=== PATIENT | female | born 1930 | race Caucasian/White ===

== ENCOUNTER → 2018-08-06 | Outpatient (CLI) | payer OTHER, MEDICARE ==
--- NOTE | 2018-08-06 16:24 | MR ---
MR brain without contrast HISTORY: Dizziness and memory loss Multiplanar multisequence imaging through the brain. No comparisons Periventricular, subcortical, pericallosal confluent and scattered hyperintensities are present on in version recovery T2-weighted sequences. There is no hemorrhage or hydrocephalus. Corpus callosum, pit uitary, cervical medullary junction, cerebellopontine angles are normal. The orbits show symmetric ap pearance. Paranasal sinuses are well aerated. Cortical atrophy is likely age-related. No restricted d iffusion to suggest subacute ischemia. IMPRESSION: Age-related changes of atrophy and probable chronic small vessel ischemia.
== END | disposition home or self-care (01) ==
LOC: RADMRIMAIN 15:36
PROVIDERS: ATTEND Physician Assistant
DX: G31.1 Senile degeneration of brain, not elsewhere classified (principal); Z88.5 Allergy status to narcotic agent
CPT/HCPCS: 70551

== ENCOUNTER 2019-09-24 17:18 | Observation (INO) | payer MEDICARE, OTHER ==
[2019-09-24] MEDS ORDERED: SODIUM CHLORIDE 0.9% 1,000 ML IV STA (17:51)
--- NOTE | 2019-09-24 17:58 | ED ---
General Adult HPI - General Chief complaint: Weakness Stated complaint: Weakness Time Seen by Provider: 09/24/19 17:43 Source: patient, family, RN notes reviewed Mode of arrival: wheelchair Limitations: no limitations - History of Present Illness Initial comments: Patient is a pleasant 89-year-old female presenting to the emergency Department with complaints of fatigue. Symptoms have been occurring for a couple of weeks. Majority of history is taken from daughter. Patient admits to having some hallucinations and seeing family members and talking to them were not actually there. Patient has been sleeping a lot. Patient sleeping sometimes up to 16 or 17 hours daily. Patient is easily fatigued. No pain. Family states confusion is somewhat worse than normal. Patient does have some chronic confusion and dementia. No isolated area of weakness. No fevers. No pain. - Related Data Allergies Allergy/AdvReac Type Severity Reaction Status Date / Time morphine AdvReac Unknown Verified 09/24/19 17:31 Review of Systems ROS Statement: Those systems with pertinent positive or pertinent negative responses have been documented in the HPI. ROS Other: All systems not noted in ROS Statement are negative. Constitutional: Denies: fever, chills Eyes: Denies: eye pain ENT: Denies: ear pain Respiratory: Denies: cough, dyspnea Cardiovascular: Denies: chest pain Endocrine: Reports: fatigue Gastrointestinal: Denies: abdominal pain, nausea, vomiting Genitourinary: Denies: dysuria Musculoskeletal: Denies: back pain Skin: Denies: rash Neurological: Reports: as per HPI. Denies: headache Psychiatric: Reports: as per HPI, visual hallucinations Past Medical History Past Medical History: Dementia Additional Past Medical History / Comment(s): loop recorder in chest History of Any Multi-Drug Resistant Organisms: None Reported Past Surgical History: Hysterectomy Past Psychological History: Depression Smoking Status: Never smoker Past Alcohol Use History: None Reported Past Drug Use History: None Reported General Exam Limitations: no limitations General appearance: alert, in no apparent distress Head exam: Present: normocephalic Eye exam: Present: normal appearance, PERRL, EOMI ENT exam: Present: normal oropharynx Neck exam: Present: normal inspection Respiratory exam: Present: normal lung sounds bilaterally Cardiovascular Exam: Present: regular rate, normal rhythm GI/Abdominal exam: Present: soft. Absent: tenderness Extremities exam: Present: normal inspection. Absent: pedal edema, calf tenderness Neurological exam: Present: alert, CN II-XII intact. Absent: motor sensory deficit Expanded Patient oriented to: Present: person. Absent: time (Patient admits that she was just seen on the year. Patient unclear and month) Speech: Present: fluid speech Cranial nerves: EOM's Intact: Normal Motor strength exam: RUE: 5, LUE: 5, RLE: 5, LLE: 5 Psychiatric exam: Present: normal affect, normal mood Skin exam: Present: normal color Course Vital Signs 09/24/19 09/24/19 17:24 19:55 Temperature 97.3 F L Pulse Rate 61 68 Respiratory 17 18 Rate Blood Pressure 148/86 122/83 O2 Sat by Pulse 98 98 Oximetry - Reevaluation(s) Reevaluation #1: 09/24/19 19:42 Radiology reports still pending. Department is calling radiologist EKG Findings - EKG Comments: EKG Findings:: Sinus bradycardia 57. NJ 14. QRS 72. QT 4:30. QTC 418. Normal axis. Normal QRS. No acute ST change. Medical Decision Making - Medical Decision Making Patient reevaluated and resting comfortably in bed. Patient and family updated on results. Case was discussed in detail with Dr. Rojas, covering for Dr. Lorenzo, who admits for Dr. Mcdonald, who will admit. - Lab Data Result diagrams: 09/24/19 18:24 09/24/19 18:24 Lab Results 09/24/19 09/24/19 09/24/19 Range/Units 18:24 18:24 18:24 WBC 3.9 (3.8-10.6) k/uL RBC 4.43 (3.80-5.40) m/uL Hgb 14.1 (11.4-16.0) gm/dL Hct 42.1 (34.0-46.0) % MCV 95.1 (80.0-100.0) fL MCH 31.9 (25.0-35.0) pg MCHC 33.5 (31.0-37.0) g/dL RDW 13.0 (11.5-15.5) % Plt Count 170 (150-450) k/uL Neutrophils % 57 % Lymphocytes % 29 % Monocytes % 9 % Eosinophils % 2 % Basophils % 1 % Neutrophils # 2.2 (1.3-7.7) k/uL Lymphocytes # 1.1 (1.0-4.8) k/uL Monocytes # 0.4 (0-1.0) k/uL Eosinophils # 0.1 (0-0.7) k/uL Basophils # 0.0 (0-0.2) k/uL PT 10.9 (9.0-12.0) sec INR 1.0 (<1.2) APTT 22.2 (22.0-30.0) sec Sodium 141 (137-145) mmol/L Potassium 4.2 (3.5-5.1) mmol/L Chloride 109 H (98-107) mmol/L Carbon Dioxide 26 (22-30) mmol/L Anion Gap 6 mmol/L BUN 19 H (7-17) mg/dL Creatinine 0.89 (0.52-1.04) mg/dL Est GFR (CKD-EPI)AfAm 67 (>60 ml/min/1.73 sqM) Est GFR (CKD-EPI)NonAf 58 (>60 ml/min/1.73 sqM) Glucose 104 H (74-99) mg/dL Calcium 9.5 (8.4-10.2) mg/dL Phosphorus 3.0 (2.5-4.5) mg/dL Magnesium 2.3 (1.6-2.3) mg/dL Total Bilirubin 0.7 (0.2-1.3) mg/dL AST 33 (14-36) U/L ALT 27 (9-52) U/L Alkaline Phosphatase 64 (38-126) U/L Troponin I (0.000-0.034) ng/mL Total Protein 6.9 (6.3-8.2) g/dL Albumin 4.0 (3.5-5.0) g/dL TSH 1.010 (0.465-4.680) mIU/L Free T4 1.17 (0.78-2.19) ng/dL Free T3 pg/mL 3.9 (2.8-5.3) pg/ml Urine Color Urine Appearance (Clear) Urine pH (5.0-8.0) Ur Specific Barton (1.001-1.035) Urine Protein (Negative) Urine Glucose (UA) (Negative) Urine Ketones (Negative) Urine Blood (Negative) Urine Nitrite (Negative) Urine Bilirubin (Negative) Urine Urobilinogen (<2.0) mg/dL Ur Leukocyte Esterase (Negative) Urine RBC (0-5) /hpf Urine WBC (0-5) /hpf Ur Squamous Epith Cells (0-4) /hpf Amorphous Sediment (None) /hpf Urine Mucus (None) /hpf 09/24/19 09/24/19 Range/Units 18:24 19:37 WBC (3.8-10.6) k/uL RBC (3.80-5.40) m/uL Hgb (11.4-16.0) gm/dL Hct (34.0-46.0) % MCV (80.0-100.0) fL MCH (25.0-35.0) pg MCHC (31.0-37.0) g/dL RDW (11.5-15.5) % Plt Count (150-450) k/uL Neutrophils % % Lymphocytes % % Monocytes % % Eosinophils % % Basophils % % Neutrophils # (1.3-7.7) k/uL Lymphocytes # (1.0-4.8) k/uL Monocytes # (0-1.0) k/uL Eosinophils # (0-0.7) k/uL Basophils # (0-0.2) k/uL PT (9.0-12.0) sec INR (<1.2) APTT (22.0-30.0) sec Sodium (137-145) mmol/L Potassium (3.5-5.1) mmol/L Chloride (98-107) mmol/L Carbon Dioxide (22-30) mmol/L Anion Gap mmol/L BUN (7-17) mg/dL Creatinine (0.52-1.04) mg/dL Est GFR (CKD-EPI)AfAm (>60 ml/min/1.73 sqM) Est GFR (CKD-EPI)NonAf (>60 ml/min/1.73 sqM) Glucose (74-99) mg/dL Calcium (8.4-10.2) mg/dL Phosphorus (2.5-4.5) mg/dL Magnesium (1.6-2.3) mg/dL Total Bilirubin (0.2-1.3) mg/dL AST (14-36) U/L ALT (9-52) U/L Alkaline Phosphatase (38-126) U/L Troponin I <0.012 (0.000-0.034) ng/mL Total Protein (6.3-8.2) g/dL Albumin (3.5-5.0) g/dL TSH (0.465-4.680) mIU/L Free T4 (0.78-2.19) ng/dL Free T3 pg/mL (2.8-5.3) pg/ml Urine Color Yellow Urine Appearance Cloudy H (Clear) Urine pH 8.0 (5.0-8.0) Ur Specific Barton 1.013 (1.001-1.035) Urine Protein Negative (Negative) Urine Glucose (UA) Negative (Negative) Urine Ketones Negative (Negative) Urine Blood Negative (Negative) Urine Nitrite Negative (Negative) Urine Bilirubin Negative (Negative) Urine Urobilinogen <2.0 (<2.0) mg/dL Ur Leukocyte Esterase Negative (Negative) Urine RBC 1 (0-5) /hpf Urine WBC <1 (0-5) /hpf Ur Squamous Epith Cells <1 (0-4) /hpf Amorphous Sediment Moderate H (None) /hpf Urine Mucus Rare H (None) /hpf - Radiology Data Radiology results: image reviewed ( x-ray shows no acute process) Disposition Clinical Impression: Fatigue, Hallucinations, Altered mental status Disposition: ADMITTED IP TO THIS HOSP Is patient prescribed a controlled substance at d/c from ED?: No Referrals: Lon Mcdonald MD [Primary Care Provider] - 1-2 days Decision Time: 20:35
[2019-09-24 18:33] LABS: Basophils % (A) 1 %; Eosinophils # (A) 0.1 k/uL (0-0.7); Eosinophils % (A) 2 %; HCT 42.1 % (34.0-46.0); HGB 14.1 gm/dL (11.4-16.0); Lymphocytes # (A) 1.1 k/uL (1.0-4.8); Lymphocytes % (A) 29 %; MCH 31.9 pg (25.0-35.0); MCHC 33.5 g/dL (31.0-37.0); MCV 95.1 fL (80.0-100.0); Mean Platelet Volume 7.9; Monocytes # (A) 0.4 k/uL (0-1.0); Monocytes % (A) 9 %; Neutrophils # (A) 2.2 k/uL (1.3-7.7); Neutrophils % (A) 57 %; Platelet Count 170 k/uL (150-450); RBC 4.43 m/uL (3.80-5.40); WBC 3.9 k/uL (3.8-10.6)
[2019-09-24 18:47] LABS: Calcium 9.5 mg/dL (8.4-10.2); Magnesium 2.3 mg/dL (1.6-2.3); Potassium 4.2 mmol/L (3.5-5.1); Total Bilirubin 0.7 mg/dL (0.2-1.3); Total Protein 6.9 g/dL (6.3-8.2)
[2019-09-24 18:51] LABS: Partial Thromboplastin Time 22.2 sec (22.0-30.0); Prothrombin Time 10.9 sec (9.0-12.0)
[2019-09-24 19:04] LABS: T4, Free (Free Thyroxine) 1.17 ng/dL (0.78-2.19)
[2019-09-24 19:57] LABS: Amorphous Sediment,Urine Moderate /hpf; Appearance,Urine Cloudy (Clear); Bilirubin,Urine Negative (Negative); Blood,Urine Negative (Negative); Color,Urine Yellow; Glucose,Urine (UA) Negative (Negative); Ketones,Urine Negative (Negative); Leukocyte Esterase,Urine Negative (Negative); Mucus,Urine Rare /hpf; Nitrite,Urine Negative (Negative); Protein,Urine Negative (Negative); RBC,Urine 1 /hpf (0-5); Specific Gravity,Urine 1.013 (1.001-1.035); Squamous Epithelial Cell,Urine <1 /hpf (0-4); Urobilinogen,Urine <2.0 mg/dL (<2.0); WBC,Urine <1 /hpf (0-5)
--- NOTE | 2019-09-24 20:13 | XR ---
EXAMINATION: XR chest 2V DATE AND TIME: 09/24/2019 6:38 PM CLINICAL INDICATION: PHH; Weakness and 15 TECHNIQUE: AP and lateral views COMPARISON: None FINDINGS: The lungs are clear. The pleural spaces are negative. The cardiac silhouette is borderline enlarged. The remainder of the mediastinal silhouette is unremar kable. The skeletal structures and soft tissues are negative for acute findings. IMPRESSION: NO ACUTE PROCESS.
[2019-09-24] MEDS ORDERED: NALOXONE 0.4 MG/ML 1 ML VIAL IV PRN (20:35)
[2019-09-24] MEDS ORDERED: ACETAMINOPHEN TAB 500 MG TAB PO PRN (21:36)
[2019-09-24] MEDS: SODIUM CHLORIDE 0.9% 1,000 ML IV SCH (22:40)
[2019-09-25 03:35] LABS: Appearance,Urine Clear (Clear); Bilirubin,Urine Negative (Negative); Blood,Urine Negative (Negative); Color,Urine Light Yellow; Glucose,Urine (UA) Negative (Negative); Ketones,Urine Negative (Negative); Leukocyte Esterase,Urine Moderate (Negative); Nitrite,Urine Negative (Negative); PH, Urine 7.5 (5.0-8.0); Protein,Urine Negative (Negative); RBC,Urine 2 /hpf (0-5); Specific Gravity,Urine 1.009 (1.001-1.035); Urobilinogen,Urine <2.0 mg/dL (<2.0); WBC,Urine 24 /hpf (0-5)
--- NOTE | 2019-09-25 05:47 | HP ---
HISTORY AND PHYSICAL CHIEF COMPLAINTS: Weakness and confusion. HISTORY OF PRESENT ILLNESS: This 89-year-old woman with a past medical history of multiple medical problems including dementia, history of loop recorder in the chest, history of hysterectomy, history of depression being followed by Dr. Mcdonald in the outpatient setting, was complaining of weakness and the patient also had MRA showed age-related atrophy changes as well as small-vessel ischemia also. The patient is confused and apparently interestingly the patient was taking medication. Patient sleeping 15-17 hours a day and the medications stopped. Still the patient is confused. Patient is still sleepy during the daytime according to the daughter and the patient taken to [facility] and was admitted for further evaluation and treatment. The patient also had some right leg wound also, minimal some tenderness. There is no history of fever, rigors, chills at this time. PAST MEDICAL HISTORY: History of dementia, loop recorder, history of hysterectomy, history of depression. MEDICATIONS: Home medications are none. ALLERGIES: MORPHINE. FAMILY HISTORY: No history of heart disease or strokes in the family. SOCIAL HISTORY: No history of smoking. No history of alcohol. REVIEW OF SYSTEMS: ENT diminished vision. Diminished hearing. CARDIOVASCULAR: No angina. RESPIRATION: No cough. No hemoptysis. GI no nausea or vomiting. no dysuria. Nervous system: No numbness, otherwise as mentioned earlier. ALLERGIES/IMMUNOLOGY: No asthma or hayfever. MUSCULOSKELETAL as mentioned earlier. HEMATOLOGY/ONCOLOGY: No history of anemia. ENDOCRINE: No history of diabetes or hypothyroidism. CONSTITUTIONAL: As mentioned earlier. DERMATOLOGY mentioned earlier. RHEUMATOLOGY negative. PSYCHIATRY as mentioned earlier. PHYSICAL EXAMINATION: Alert and oriented x3. Pulse 64. Blood pressure 133/95, respiration 18, temperature 97.2, pulse ox 97% on room air. HEENT: Conjunctivae normal. Oral mucosa moist. NECK is no jugular venous distention. No carotid bruit. No lymph node enlargement. Cardiovascular system: S1, S2 muffled. No S3, no S4. RESPIRATORY: Breath sounds diminished in the bases. No rhonchi. No crackles. ABDOMEN: Soft, nontender. No mass palpable. LEGS: Right lower leg erythema and cellulitis and denuded areas also present. NERVOUS SYSTEM: Higher functions as mentioned earlier. Moves all four limbs. No focal motor or sensory deficits. Lymphatics: No lymph nodes palpable in the neck, axillae or groin. SKIN: No ulcers, no rashes and no bleeding. JOINTS: No active deforming arthropathy. LABS: At this time: WBC is within normal limits. CBC noted. Otherwise BUN is 19. Glucose 104. ASSESSMENT: 1. Change in mental status, acute metabolic encephalopathy, possibly medication induced, sleeping medication sedatives induced. 2. Possible cellulitis of the right lower leg. 3. Dementia. 4. Chronic small-vessel ischemic changes. 5. Loop recorder in the chest. 6. History of hysterectomy. 7. Depression. 8. Gait dysfunction. 9. FULL CODE. RECOMMENDATIONS AND DISCUSSION: In this 89-year-old woman who presented with multiple medical issues, we will monitor the patient closely, continue the current medications, management and symptomatic treatment. We will initiate empiric antibiotics for the cellulitis. Otherwise, we will hold off all the sedatives and the anxiety medication. PT, OT evaluation. Orthostatic vitals. Neurology consultation. Neurovascular workup. Prognosis guarded because of multiple complex medical issues. Further recommendations to follow. Discussed with family and the daughter at the bedside. Copy of dictation being forwarded to Dr. Mcdonald who is the primary physician. MMODL / MATTN: [id number] /
[2019-09-25 07:57] LABS: Basophils % (A) 1 %; Eosinophils # (A) 0.1 k/uL (0-0.7); Eosinophils % (A) 2 %; HCT 38.8 % (34.0-46.0); HGB 12.9 gm/dL (11.4-16.0); Lymphocytes # (A) 1.2 k/uL (1.0-4.8); Lymphocytes % (A) 28 %; MCH 31.7 pg (25.0-35.0); MCHC 33.2 g/dL (31.0-37.0); MCV 95.4 fL (80.0-100.0); Mean Platelet Volume 8.1; Monocytes # (A) 0.4 k/uL (0-1.0); Monocytes % (A) 8 %; Neutrophils # (A) 2.5 k/uL (1.3-7.7); Neutrophils % (A) 59 %; Platelet Count 157 k/uL (150-450); RBC 4.06 m/uL (3.80-5.40); RDW 12.9 % (11.5-15.5); WBC 4.3 k/uL (3.8-10.6)
[2019-09-25 07:58] LABS: Calcium 8.9 mg/dL (8.4-10.2); Potassium 3.9 mmol/L (3.5-5.1)
--- NOTE | 2019-09-25 08:57 | US ---
EXAMINATION TYPE: US carotid duplex BILAT DATE OF EXAM: 09/25/2019 COMPARISON: NONE CLINICAL HISTORY: stroke. No hx TIA. No HTN. EXAM MEASUREMENTS: RIGHT: Peak Systolic Velocity (PSV) cm/sec ----- Right CCA: 61.0 ----- Right ICA: 52.3 ----- Right ECA: 80.1 ICA/CCA ratio: 0.9 RIGHT: End Diastole cm/sec ----- Right CCA: 10.4 ----- Right ICA: 13.9 ----- Right ECA: 7.6 LEFT: Peak Systolic Velocity (PSV) cm/sec ----- Left CCA: 64.7 ----- Left ICA: 94.3 ----- Left ECA: 61.4 ICA/CCA ratio: 1.5 LEFT: End Diastole cm/sec ----- Left CCA: 7.6 ----- Left ICA: 21.9 ----- Left ECA: 8.7 VERTEBRALS (direction of flow): Right Vertebral: Antegrade Left Vertebral: Antegrade Rhythm: Normal Bilateral wall thickening. Plaque visualized in bilateral bulbs. No elevated velocities. No signif icant stenosis. IMPRESSION: Moderate degree of grayscale atheromatous plaquing in the carotid bulbs bilaterally with no sonographically evident hemodynamically significant stenosis within either visualized carotid art erial system. Criteria for Assigning % of Stenosis / Diameter reduction (Estimation based on the indirect measurements of the internal carotid artery velocities (ICA PSV). 1. Normal (no stenosis)=ICA PSV < 125 cm/s: ratio < 2.0: ICA EDV<40 cm/s. 2. Less than 50% stenosis=ICA PSV < 125 cm/s: ratio < 2.0: ICA EDV<40 cm/s. 3. 50 to 69% stenosis=ICA PSV of 125 to 230 cm/s: ration 2.0 ? 4.0: ICA EDV 40-100 cm/s. 4. Greater than 70% stenosis to near occlusion= ICA PSV > 230 cm/s: ratio > 4.0: ICA EDV > 100 cm/s. 5. Near occlusion= ICA PSV velocities may be low or undetectable: variable ratio and ICA EDV. 6. Total occlusion=unable to detect flow.
[2019-09-25] MEDS: HEPARIN SODIUM,PORCINE 5,000 UNIT/ML 1 ML VIAL SQ SCH ×2 (09:36→22:11)
[2019-09-25] MEDS: PANTOPRAZOLE 40 MG TABLET PO SCH (09:36)
--- NOTE | 2019-09-25 11:58 | ECHOF ---
Referral Reason:Stroke MEASUREMENTS -------- HEIGHT: 157.5 cm WEIGHT: 55.8 kg BP: 164/73 RVIDd: 2.8 cm (< 3.3) IVSd: 1.2 cm (0.6 - 1.1) LVIDd: 3.7 cm (3.9 - 5.3) LVPWd: 1.3 cm (0.6 - 1.1) IVSs: 1.6 cm LVIDs: 2.5 cm LVPWs: 1.5 cm LA Diam: 4.5 cm (2.7 - 3.8) LAESV Index (A-L): 34.71 ml/m Ao Diam: 2.4 cm (2.0 - 3.7) AV Cusp: 1.5 cm (1.5 - 2.6) LA Diam: 3.4 cm (2.7 - 3.8) MV EXCURSION: 15.965 mm (> 18.000) MV EF SLOPE: 66 mm/s (70 - 150) EPSS: 0.2 cm MV E Malik: 0.49 m/s MV DecT: 163 ms MV A Malik: 0.76 m/s MV E/A Ratio: 0.64 RAP: 5.00 mmHg RVSP: 13.03 mmHg FINDINGS -------- Sinus rhythm. This was a technically good study. The left ventricular size is normal. There is mild concentric left ventricular hypertrophy. Overa ll left ventricular systolic function is normal with, an EF between 55 - 60 %. The right ventricle is normal in size. The left atrium is moderately dilated. LA is midly dilated 29-33ml/m2. The right atrial size is normal. There is mild aortic valve sclerosis. There is no evidence of aortic regurgitation. Mild mitral annular calcification present. Mild mitral regurgitation is present. Trace tricuspid regurgitation present. Right ventricular systolic pressure is normal at < 35 mmHg. There is no evidence of pulmonary hypertension. There is no pulmonic regurgitation present. The aortic root size is normal. There is no pericardial effusion. CONCLUSIONS -------- 1. Sinus rhythm. 2. This was a technically good study. 3. The left ventricular size is normal. 4. There is mild concentric left ventricular hypertrophy. 5. Overall left ventricular systolic function is normal with, an EF between 55 - 60 %. 6. The right ventricle is normal in size. 7. The left atrium is moderately dilated. 8. LA is midly dilated 29-33ml/m2. 9. The right atrial size is normal. 10. There is mild aortic valve sclerosis. 11. Mild mitral annular calcification present. 12. Mild mitral regurgitation is present. 13. Trace tricuspid regurgitation present. 14. Right ventricular systolic pressure is normal at < 35 mmHg. 15. There is no evidence of pulmonary hypertension. 16. There is no pulmonic regurgitation present. 17. The aortic root size is normal. 18. There is no pericardial effusion. LOAF COUNTER: Katiuska Mike RDCS
--- NOTE | 2019-09-25 14:37 | P.CN ---
Psychiatric Consult - . Consult date: 09/25/19 Consult:: 09/25/19 14:25 IDENTIFYING DATA: This patient is a 89-year-old female who currently lives with her granddaughter and apartment is and has 2 daughters and 2 grandchildren. HISTORY OF PRESENT ILLNESS: The patient was brought in yesterday to the ER due to concerns of fatigue for the past week and also complaints of possible hallucinations. Psychiatry is consulted for altered mental status and hallucinations. Patient has a history of dementia and chronic confusion. The patient was agreeable to be seen today by report writer at the bedside and appeared to have a bright affect and was appropriate and cooperative during the interview. Patient spoke about being able to mainly take care of herself at home and has sufficient help from her granddaughter who is always at her house. She states that she is a very social person and likes to interact with other people. She claims that she does not know why she is in the hospital and asked several times why she is being evaluated. She claims that she ran out of medication and that her pharmacy "close down" and her primary care doctor send her to the ER. She states that she is at times sleeping well at night and denies any depression at this time. She states that she does not have any anxiety. When asked about the incident and about her hallucinations she states that she was at her house and she was doing something in the kitchen and had a feeling that her daughter was in the other room and called out for her and she states that "it turned out she wasn't there". Patient claims that she did not actually see her daughter but had a "feeling she was there". She states that nothing triggered this that she can recall. She denies talking to any voices or seeing any people or other visual hallucinations. Patient was confused as to who the president was the current time and was alert and oriented 2 and did not know today's date, claiming that she thought it was February 2019. At this time patient denies any suicidal or homical ideations, intent or plan. Patient denies any auditory, visual hallucinations and denies any paranoia or delusions. PAST PSYCHIATRIC HISTORY: Patient has a history of dementia and chronic confusion. She has never been admitted to a psychiatric hospital and denies any outpatient psychiatric follow-up. She denies any history of suicide attempts in the past. PAST MEDICAL HISTORY: Dementia. ALLERGIES: as per EMR. CHEMICAL DEPENDENCY HISTORY: Denies any recreational drug use denies any nicotine or alcohol use.. FAMILY PSYCHIATRIC/SUBSTANCE USE HISTORY: denies SOCIAL HISTORY: She states that she was born and raised in [place] and was in [place] and [place]. She claims that she had to move back to [place] after her . 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 She has 2 daughters and 2 granddaughters and is currently and lives alone in apartment with her granddaughter frequently being there.. MENTAL STATUS EXAM: General Appearance: Patient appears to be stated age is thin, alert, pleasant, and cooperative. Fair hygiene and grooming. Behavior: Patient is calmly lying in bed without any agitated behavior. Speech: Patient's speech is fluent and nonpressured. Mood/Affect: Patient reports their mood is "good", affect is congruent fair range. Suicidality/Homicidality: Patient denies having any suicidal or homicidal ideation intent or plan. Perceptions: Patient denies any auditory or visual hallucinations. Though content/process: There is no evidence of any delusional thought content and thought process is linear and goal-directed. Tangential at times. Memory and concentration: AOX2, patient believed it was February 2019. Patient did not know who the current president is. Patient has good attention span and Can spell "WORLD" backwards. He can identify objects. Has one out of 3 memory recall after 5 minutes. Judgment and insight: Chronically limited. IMPRESSIONS: Dementia without behavioral disturbance PLAN: -At this time patient does NOT meet criteria for inpatient psychiatric admission. -Unclear etiology for supposed "hallucinations" at home. Patient does appear to be chronically confused and has a baseline of dementia. At this time is not experiencing any acute visual or auditory hallucinations which is not impairing her life at this time. Can continue to monitor. -Delirium precautions recommended with patient including - avoiding use of narcotics and RAMP ATTENDANT sedatives, limit anticholinergic medications when possible, frequent re-orientation, minimize use of restraints, open window shades during the day and close them at night -Would recommend the following medication changes/additions: We'll switch Remeron to melatonin 2 mg daily at bedtime for sleep. Can continue on home dose of donepezil 10 mg nightly for memory. -Urine analysis negative, electrolytes and CBC appear WNL. -Psychiatry will sign off at this point
[2019-09-25] MEDS: FOLIC ACID 1 MG TAB PO SCH (14:44)
[2019-09-25] MEDS: THIAMINE 100 MG TAB PO SCH (14:45)
[2019-09-25] MEDS: MULTIVITAMINS, THERA 1 EACH TAB PO SCH (14:45)
--- NOTE | 2019-09-25 16:05 | P.PN ---
Subjective Progress Note Date: 09/25/19 Principal diagnosis: This is an 89-year-old female that was recently admitted for weakness, confusion, and hallucinations and was being closely monitored. Today patient is much more alert and awake and responding appropriately. Granddaughter Alesha, of whom has power of state attorney states that she is much better today. Patient denies hearing voices or seeing people that are not present at this time. Per Alesha, patient was told that she does have dementia and they weren't sure if she was advancing. Patient is currently on IV antibiotics in the form of Rocephin and will continue at this time. Patient denies any chest pain, shortness of breath, or palpitations. Patient has been afebrile. Patient denies any nausea or vomiting and has been tolerating diet. Patient has been working with PT/OT as well. Patient was seen by psychiatry today and recommending using melatonin as opposed to Remeron as needed for sleep. Patient underwent an echo showing overall left ventricular systolic function is normal with an EF between 55 and 60%. Carotid Doppler was done showing a moderate degree of atheromatous plaquing in the carotid bulbs bilaterally with no evident significant stenosis in either carotid arteries. Objective - Vital Signs Vital signs: Vital Signs Temp 97.8 F 09/25/19 13:00 Pulse 63 09/25/19 13:00 Resp 16 09/25/19 13:00 BP 149/70 09/25/19 13:00 Pulse Ox 96 09/25/19 13:00 Intake & Output 09/24/19 09/25/19 09/25/19 18:59 06:59 18:59 Intake Total 210 50 Balance 210 50 Weight 56.699 kg 55.934 kg Intake: Intake, IV Titration 210 50 Amount Sodium Chloride 0.9% 1, 160 000 ml @ 20 mls/hr IV . Q24H [facility] Rx#:[id number] cefTRIAXone 1 gm In 50 50 Sodium Chloride 0.9% 50 ml @ 100 mls/hr IVPB Q24HR [facility] Rx#:[id number] Other: Voiding Method Toilet Toilet - Exam Gen: This is a 89-year-old female sitting up in bed in no acute distress. Temp is 97.8F, pulse is 63, respirations are 16, blood pressure is 149/70, oxygen saturation is 96% on room air. HEENT: Head is atraumatic, normocephalic. Pupils equal, round. Sclerae is anicteric. NECK: Supple. No JVD. No lymphadenopathy. No thyromegaly. LUNGS: Respiratory system shows diminished breath sounds at the bases with no rhonchi, crackles, or wheezes noted. No intercostal retractions. HEART: S1, S2 are muffled. ABDOMEN: Soft. Bowel sounds are present. No masses. No tenderness. EXTREMITIES: No pedal edema. No calf tenderness. NEUROLOGICAL: Patient is awake, alert and oriented x3. Cranial nerves 2 through 12 are grossly intact. SKIN: Right lower leg display some erythema and cellulitis with denuded areas - Labs CBC & Chem 7: 09/25/19 07:04 09/25/19 07:04 Labs: Abnormal Lab Results - Last 24 Hours (Table) 09/24/19 09/24/19 09/25/19 Range/Units 18:24 19:37 03:30 Chloride 109 H (98-107) mmol/L BUN 19 H (7-17) mg/dL Glucose 104 H (74-99) mg/dL Urine Appearance Cloudy H (Clear) Ur Leukocyte Esterase Moderate H (Negative) Urine WBC 24 H (0-5) /hpf Amorphous Sediment Moderate H (None) /hpf Urine Mucus Rare H (None) /hpf 09/25/19 Range/Units 07:04 Chloride 112 H (98-107) mmol/L BUN (7-17) mg/dL Glucose (74-99) mg/dL Urine Appearance (Clear) Ur Leukocyte Esterase (Negative) Urine WBC (0-5) /hpf Amorphous Sediment (None) /hpf Urine Mucus (None) /hpf Assessment and Plan Assessment: Change in mental status, acute metabolic encephalopathy, possible medication induced, sleeping medication sedatives induced Possible cellulitis of the right lower leg Dementia Chronic small vessel ischemic changes Group recorder in the chest History of hysterectomy Depression Gait dysfunction Full code Recommendations and discussion: Recommend continue current medications, management, and symptomatic treatment. Will hold on [employer] and narcotic use. We'll discontinue Remeron and may use melatonin as needed for sleep. Psychiatry has seen the patient and is signed off at this point. Patient will continue on IV antibiotics in the form of Rocephin at this time. Due to multiple complex medical issues prognosis is guarded. Further recommendations to follow. Discussed at length about the discharge plans with Alesha the family member and the plan is to return to the long term facility that she resides at. Possible discharge in 24-48 hours.
[2019-09-25 20:45] VITALS: RESP 18
[2019-09-25] MEDS ORDERED: DONEPEZIL 10 MG TAB PO SCH (21:00)
[2019-09-25] MEDS ORDERED: MELATONIN 1 MG TAB PO SCH (21:00)
[2019-09-25] MEDS ORDERED: MIRTAZAPINE 15 MG TAB PO SCH (21:00)
[2019-09-25] MEDS: SODIUM CHLORIDE 0.9% 1,000 ML IV SCH (22:10)
[2019-09-26 04:33] VITALS: PULSE 66
[2019-09-26 07:48] LABS: Basophils % (A) 1 %; Eosinophils % (A) 1 %; HCT 41.3 % (34.0-46.0); HGB 13.7 gm/dL (11.4-16.0); Lymphocytes # (A) 1.1 k/uL (1.0-4.8); Lymphocytes % (A) 30 %; MCH 31.8 pg (25.0-35.0); MCV 96.1 fL (80.0-100.0); Mean Platelet Volume 7.6; Monocytes # (A) 0.3 k/uL (0-1.0); Monocytes % (A) 9 %; Neutrophils # (A) 2.1 k/uL (1.3-7.7); Neutrophils % (A) 56 %; Platelet Count 168 k/uL (150-450); WBC 3.8 k/uL (3.8-10.6)
[2019-09-26 08:03] LABS: Calcium 9.3 mg/dL (8.4-10.2); Potassium 3.7 mmol/L (3.5-5.1)
[2019-09-26] MEDS: HEPARIN SODIUM,PORCINE 5,000 UNIT/ML 1 ML VIAL SQ SCH (09:17)
[2019-09-26] MEDS: PANTOPRAZOLE 40 MG TABLET PO SCH (09:17)
[2019-09-26 12:45] VITALS: BP 159/82; TEMP 97.5
--- NOTE | 2019-09-26 13:02 | P.CNNES ---
History of Present Illness Consult date: 09/25/19 Reason for Consult: AMS, hallucinations History of Present Illness: HISTORY OF PRESENT ILLNESS: Thank you for allowing me to evaluate Ms. Naina Traore. Ms. Traore is an 89 year-old woman with PMhx of dementia presenting with fatigue, consulting neurology for altered mental status and hallucinations. Patient's granddaughter, Alesha, at bedside for corroborating information. Alesha states that she had taken the patient to her PCP, and during that visit, patient reported that she sometimes found herself talking to her daughter or grandchildren soon to realize that they are not there. As soon as the PCP ceferino rd this story, he recommended granddaugther to take patient to the emergency room. Patient had thought that she went to a pharmacy not her PCP. Patient was describing an incident when she was in a room and talking to her daughter, and while walking out of the room, she realized that her daughter was not at her house. Alesha states patient was diagnosed with early-onset dementia last year. Otherwise, patient has been pretty healthy, no recent sickness, fever, nausea, vomiting, double/blurry vision, headache, weakness, numbness, tingling, chest pain, SOB, diarrhea/constipation or urinary symptoms. PAST MEDICAL HISTORY: Dementia PAST SURGICAL HISTORY: Hysterectomy HOME MEDICATIONS: KCl, mirabegron, vitamin D, mirtazapine, metoprolol, aspirin, donepezil, atorvastatin ALLERGIES: Morphine SOCIAL HISTORY: Never smoker REVIEW OF SYSTEMS: The 14 systems are reviewed and no additional points are identified compared to the review of systems documented history and physical PHYSICAL EXAMINATION: VITAL SIGNS: T 97 HR 67 RR 16 BP 164/73 O2 sat 96% on RA GEN.: NAD, pleasant and cooperative HEENT: NCAT, sclera without icterus NECK: Supple SKIN AND EXTREMITIES: Warm to touch, no edema NEURO: MENTAL STATUS: Patient alert and oriented to self, place, time. Able to name the current president. Speech fluent, able to name and repeat, following all commands readily. No right and left disorientation, neglect. Patient with difficulty spelling WORLD backwards but able to do serial 7's albeit with some time CRANIAL NERVES II THROUGH XII: II: Pupils are equal and reactive to light symmetrically. No afferent pupillary defect. Visual dowell are intact. III, IV, : No ptosis. Extraocular movements full. No nystagmus. V: Facial sensation intact from V1-3. VII. No clear facial asymmetry. VIII: Hearing intact to finger rub bilaterally. IX, X: Symmetric palate elevation. XI: Shoulder shrug intact. XII: Tongue midline without fasciculation or atrophy. MOTOR: Normal bulk/tone. No pronator drift or tremor. Strength is 5/5 throughout all 4 extremities. SENSORY: Intact to light touch in all 4 extremities. Romberg is negative. REFLEXES: 2+ throughout. Toes are downgoing. COORDINATION: Finger to nose intact. No dysmetria. GAIT: Narrow-based and stable. Able to toe/heel/tandem walk DIAGNOSTIC TESTING: LABORATORY: WBC 4.3 hemoglobin 12.9 platelet 157 INR 1.0 sodium 141 potassium 3.9 chloride 112 bicarb 23 BUN 15 creatinine 0.81 glucose 79 AST 33 ALT 27 alk phos 64 tropon in <0.012 TSH 1.010 urinalysis moderate leukesterase WBC 24 IMAGING: Carotid Doppler bilateral 09/25/2019: Moderate degree of grief scale atheromatous plaquing in the carotid bulbs bilaterally with no sonographically evident hemodynamically significant stenosis within either visualized carotid artery assistance. MRI brain without contrast 08/06/2018: Age-related changes of atrophy and probable chronic small vessel ischemia. ASSESSMENT/RECOMMENDATIONS: 89 year-old woman with PMhx of dementia, HTN presenting with fatigue, consulting neurology for altered mental status and hallucinations. Patient is alert and oriented x 4, with no focal neuro deficits. Patient with early-onset dementia, which does not appear to have progressed. Patient is not actually having visual or auditory hallucinations but thinking that her children are at her place. Some of these symptoms could very well be present in dementia patients, but patient also found with a dirty urinalysis, which could cause delirium in elderly patients. Patient needs to follow up with an outpatient neurologist for management of early-onset dementia. Patient does not need additional inpatient work-up from neurological perspective. Neurology will sign off at this time. Neurology is not available over the weekend in-house. However, feel free to [employer] message me over the weekend if you have any questions or concerns Past Medical History Past Medical History: Dementia Additional Past Medical History / Comment(s): loop recorder in chest History of Any Multi-Drug Resistant Organisms: None Reported Past Surgical History: Hysterectomy Past Anesthesia/Blood Transfusion Reactions: No Reported Reaction Past Psychological History: Depression Smoking Status: Never smoker Past Alcohol Use History: None Reported Past Drug Use History: None Reported - Past Family History Daughter(s) History Unknown: Yes Medications and Allergies Home Medications Medication Instructions Recorded Confirmed Type Aspirin EC [Ecotrin Low Dose] 81 mg PO DAILY 09/25/19 09/25/19 History Atorvastatin [Lipitor] 40 mg PO DAILY 09/25/19 09/25/19 History Cholecalciferol [Vitamin D3 (25 1,000 unit PO DAILY 09/25/19 09/25/19 History Mcg = 1000 Iu)] Donepezil HCl [Aricept] 10 mg PO DAILY 09/25/19 09/25/19 History Lactobacillus Acidophilus 1 tab PO DAILY 09/25/19 09/25/19 History [Acidophilus] Metoprolol Tartrate [Lopressor] 12.5 mg PO BID 09/25/19 09/25/19 History Mirabegron [Myrbetriq] 25 mg PO DAILY 09/25/19 09/25/19 History Mirtazapine [Remeron] 15 mg PO DAILY 09/25/19 09/25/19 History Potassium Chloride ER [K-Dur 10] 10 meq PO DAILY 09/25/19 09/25/19 History Cefuroxime Axetil [Ceftin] 500 mg PO BID 3 Days #6 tab 09/26/19 Rx Folic Acid 1 mg PO DAILY #30 tablet 09/26/19 Rx Multivitamins, Thera [Multivitamin] 1 tab PO DAILY #30 tablet 09/26/19 Rx Thiamine [Vitamin B-1] 100 mg PO DAILY #30 tablet 09/26/19 Rx Allergies Allergy/AdvReac Type Severity Reaction Status Date / Time morphine AdvReac Unknown Verified 09/24/19 21:26 Physical Examination - Vital Signs Vital Signs: Vital Signs Temp Pulse Pulse Resp BP BP Pulse Ox 09/25/19 05:00 97 F L 67 16 164/73 96 09/24/19 22:09 97.8 F 69 18 160/94 96 09/24/19 21:28 64 18 136/95 97 09/24/19 19:55 68 18 122/83 98 09/24/19 17:24 97.3 F L 61 17 148/86 98 Intake and Output 09/24/19 09/25/19 09/25/19 22:59 06:59 14:59 Intake Total 50 160 Balance 50 160 Intake: Intake, IV Titration 50 160 Amount Sodium Chloride 0.9% 1, 160 000 ml @ 20 mls/hr IV . Q24H [facility] Rx#:[id number] cefTRIAXone 1 gm In 50 Sodium Chloride 0.9% 50 ml @ 100 mls/hr IVPB Q24HR [facility] Rx#:[id number] Other: Voiding Method Toilet Weight 55.934 kg Results - Laboratory Findings CBC and BMP: 09/26/19 06:59 09/26/19 06:59 Abnormal Lab Findings: Abnormal Labs 09/24/19 09/24/19 09/25/19 18:24 19:37 03:30 Chloride 109 H BUN 19 H Glucose 104 H Urine Appearance Cloudy H Ur Leukocyte Esterase Moderate H Urine WBC 24 H Amorphous Sediment Moderate H Urine Mucus Rare H 09/25/19 07:04 Chloride 112 H BUN Glucose Urine Appearance Ur Leukocyte Esterase Urine WBC Amorphous Sediment Urine Mucus
[2019-09-26] MEDS: FOLIC ACID 1 MG TAB PO SCH (13:21)
[2019-09-26] MEDS: THIAMINE 100 MG TAB PO SCH (13:21)
[2019-09-26] MEDS: MULTIVITAMINS, THERA 1 EACH TAB PO SCH (13:21)
--- NOTE | 2019-09-26 22:44 | DS ---
DISCHARGE SUMMARY DATE OF SERVICE: 09/26/2019 FINAL DIAGNOSES: 1. Change in mental status, acute metabolic encephalopathy possibly medication induced, improved. 2. Possible acute cellulitis of the right lower leg, improved. 3. Dementia. 4. Chronic small-vessel ischemic changes. 5. History of hysterectomy. 6. Depression. 7. Gait dysfunction. 8. FULL CODE. DISCHARGE DISPOSITION: The patient will be discharged in stable condition with guarded prognosis. HISTORY OF PRESENT ILLNESS: This 89-year-old woman with a past medical history of multiple medical problems including change in mental status and cellulitis of the right leg. Patient empirically given antibiotics. Patient improved significantly. Psychiatry saw the patient. A 2D echo with Doppler was also done. The psych recommended continue the current medications. Neurology also saw the patient. A 2D echo showed EF 55-60 percent. On exam, vitals are stable. Cardiovascular: S1, S2. Abdomen soft. Nervous system: No focal deficits. DISCHARGE ADVICE AND MEDICATIONS: 1. Diet is cardiac diet. 2. Activity limited until followup. 3. Follow up with Dr. Mcdonald in 1-2 days. 4. Follow up with Neurology as recommended. DISCHARGE MEDICATIONS: 1. Lactobacillus acidophilus 1 p.o. daily. 2. Aricept 10 mg daily. 3. Ecotrin 81 mg daily. 4. K-Dur 10 mEq p.o. daily. 5. Lipitor 40 mg daily. 6. Lopressor 12.5 mg p.o. b.i.d. 7. Myrbetriq 25 mg p.o. daily. 8. Remeron 50 mg p.o. daily. 9. Vitamin D3 1000 daily. 10.Ceftin 500 mg daily for 3 days. 11.Folic acid 1 mg p.o. daily. 12.Multivitamins 1 p.o. daily. 13.Vitamin B1 thiamine 100 mg p.o. daily. MMODL / IJN: [id number] /
== END 2019-09-26 14:00 | disposition home or self-care (01) ==
LOC: EC 17:18 → 3NMEDONC 20:36
PROVIDERS: ADMIT Hospitalist; ATTEND Hospitalist
DX: F03.90 Unspecified dementia, unspecified severity, without behavioral disturbance, psychotic disturbance, mood disturbance, and anxiety (principal); F32.9 Major depressive disorder, single episode, unspecified; R44.3 Hallucinations, unspecified; G93.41 Metabolic encephalopathy; I73.9 Peripheral vascular disease, unspecified; R26.9 Unspecified abnormalities of gait and mobility; Z90.710 Acquired absence of both cervix and uterus; Z79.82 Long term (current) use of aspirin; Z79.899 Other long term (current) drug therapy; Z88.5 Allergy status to narcotic agent
CPT/HCPCS: 96361 ×3; 96365; 96372 ×2; 99285; 36415; 93005; 93306; 97530; 97162; 97166; 84439; 84481; 80053; 80048 ×2; 83735; 84100; 84443; 84484; 85025 ×3; 85610; 85730; 81001 ×2; 71046; 93880; G0378 ×3; J1644 ×2; J0696 ×3

== ENCOUNTER 2019-10-02 20:18 | Emergency (ER) | payer MEDICARE ==
[2019-10-02 20:29] VITALS: BP 154/71; PULSE 57; RESP 16; TEMP 97.7
--- NOTE | 2019-10-02 21:02 | ED ---
General Adult HPI - General Chief complaint: Skin/Abscess/Foreign Body Stated complaint: Abscess Time Seen by Provider: 10/02/19 20:32 Source: patient, RN notes reviewed, old records reviewed Mode of arrival: ambulatory Limitations: no limitations - History of Present Illness Initial comments: 89-year-old female patient presents to ED for chief complaint evaluation of sore and gluteus region. Patient was reportedly admitted from 09/24 until 09/26 for fatigue mental status change, urinary tract infection. Patient was discharged with Ceftin which she completed. Patient presents to ED today that she has a pressure ulcer on her left gluteus region. Denies any other complaints. Alert and oriented. Denies any pain. Systemic: Pt denies fatigue, fever/chills, rash. Pt denies weakness, night sweats, weight loss. Neuro: Pt denies headache, visual disturbances, syncope or pre-syncope. HEENT: Pt denies ocular discharge or irritation, otalgia, rhinorrhea, pharyngitis or notable lymphadenopathy. Cardiopulmonary: Pt denies chest pain, SOB, heart palpitations, dyspnea on exertion. Abdominal/GI: Pt denies abdominal pain, n/v/d. : Pt denies dysuria, burning w/ urination, frequency/urgency. Denies new onset urinary or bowel incontinence. MSK: Pt denies myalgia, loss of strength or function in extremities. Neuro: Pt denies new onset weakness, paresthesias. - Related Data Home Medications Medication Instructions Recorded Confirmed Aspirin EC [Ecotrin Low Dose] 81 mg PO DAILY 09/25/19 09/25/19 Atorvastatin [Lipitor] 40 mg PO DAILY 09/25/19 09/25/19 Cholecalciferol [Vitamin D3 (25 1,000 unit PO DAILY 09/25/19 09/25/19 Mcg = 1000 Iu)] Donepezil HCl [Aricept] 10 mg PO DAILY 09/25/19 09/25/19 Lactobacillus Acidophilus 1 tab PO DAILY 09/25/19 09/25/19 [Acidophilus] Metoprolol Tartrate [Lopressor] 12.5 mg PO BID 09/25/19 09/25/19 Mirabegron [Myrbetriq] 25 mg PO DAILY 09/25/19 09/25/19 Mirtazapine [Remeron] 15 mg PO DAILY 09/25/19 09/25/19 Potassium Chloride ER [K-Dur 10] 10 meq PO DAILY 09/25/19 09/25/19 Previous Rx's Medication Instructions Recorded Cefuroxime Axetil [Ceftin] 500 mg PO BID 3 Days #6 tab 09/26/19 Folic Acid 1 mg PO DAILY #30 tablet 09/26/19 Multivitamins, Thera [Multivitamin] 1 tab PO DAILY #30 tablet 09/26/19 Thiamine [Vitamin B-1] 100 mg PO DAILY #30 tablet 09/26/19 Allergies Allergy/AdvReac Type Severity Reaction Status Date / Time morphine AdvReac Unknown Verified 10/02/19 20:29 Review of Systems ROS Statement: Those systems with pertinent positive or pertinent negative responses have been documented in the HPI. ROS Other: All systems not noted in ROS Statement are negative. Past Medical History Past Medical History: Dementia Additional Past Medical History / Comment(s): loop recorder in chest History of Any Multi-Drug Resistant Organisms: None Reported Past Surgical History: Hysterectomy Past Anesthesia/Blood Transfusion Reactions: No Reported Reaction Past Psychological History: Depression Smoking Status: Never smoker Past Alcohol Use History: None Reported Past Drug Use History: None Reported - Past Family History Daughter(s) History Unknown: Yes General Exam - General Exam Comments Initial Comments: Constitutional: NAD, AOX3, Pt has pleasant affect. HEENT: NC/AT, trachea midline, neck supple, no lymphadenopathy. Posterior pharynx non erythematous, without exudates. External ears appear normal, without discharge. Mucous membranes moist. Eyes PERRLA, EOM intact. There is no scleral icterus. No pallor noted. Cardiopulmonary: RRR, no murmurs, rubs or gallops, no JVD noted. Lungs CTAB in anterior and posterior dowell. No peripheral edema. Abdominal exam: Abdomen soft and non-distended. Abdomen non-tender to palpation in all 4 quadrants. Bowel sounds active in LLQ. No hepatosplenomegaly. No ecchymosis Neuro: CN II-XII intact. No nuchal rigidity. No raccon eyes, no hamm sign, no hemotympanum. No cervical spinal tenderness. MSK: No posterior calf tenderness bilaterally, homans sign negative bilaterally. Posterior tibialis and radial pulse +2 bilaterally. Sensation intact in upper and lower extremities. Full active ROM in upper and lower extremities, 5/5 stregnth. Derm: Stage II pressure ulcer in left gluteus region approximately 2 x 2 centimeters. No fluctuance, no discharge. Limitations: no limitations Course Vital Signs 10/02/19 20:27 Temperature 97.7 F Pulse Rate 57 L Respiratory 16 Rate Blood Pressure 154/71 O2 Sat by Pulse 97 Oximetry Medical Decision Making - Medical Decision Making 89-year-old female patient presents ED chief complaint of pressure ulcer left gluteus region. Patient vital signs stable, afebrile. Physical exam displayed stage II pressure ulcer. She'll be discharged, will follow up with wound care at her assisted-living facility. Advised to attempt to decrease amount of time sitting on gluteus region as possible. Return to ER if condition worsens. Case discussed with Dr. Davis. Disposition Clinical Impression: Pressure ulcer Disposition: HOME SELF-CARE Condition: Stable Instructions (If sedation given, give patient instructions): How to Prevent Pressure Injuries (ED), Pressure Injury (ED) Additional Instructions: Follow-up with primary care provider and nursing staff at assisted living facility tomorrow. Return to ER if condition worsens in any way. Is patient prescribed a controlled substance at d/c from ED?: No Referrals: Lon Mcdonald MD [Primary Care Provider] - 1-2 days
== END 2019-10-02 21:20 | disposition home or self-care (01) ==
LOC: EC 20:18
DX: L89.322 Pressure ulcer of left buttock, stage 2 (principal); F03.90 Unspecified dementia, unspecified severity, without behavioral disturbance, psychotic disturbance, mood disturbance, and anxiety; F32.9 Major depressive disorder, single episode, unspecified; Z79.82 Long term (current) use of aspirin; Z79.899 Other long term (current) drug therapy; Z88.5 Allergy status to narcotic agent
CPT/HCPCS: 99283

== ENCOUNTER 2020-02-24 19:37 | Inpatient (IN) | payer MEDICARE ==
[2020-02-24] MEDS ORDERED: SODIUM CHLORIDE 0.9% 1,000 ML IV ONE (19:43)
[2020-02-24 20:04] LABS: Glucose,Whole Blood 260 mg/dL (75-99)
--- NOTE | 2020-02-24 20:10 | XR ---
EXAMINATION TYPE: XR chest 2V DATE OF EXAM: 02/24/2020 COMPARISON: 09/24/2019 HISTORY: Altered mental status TECHNIQUE: Frontal and lateral views of the chest are obtained. FINDINGS: There is no focal air space opacity, pleural effusion, or pneumothorax seen. The cardiac silhouette size is upper limits of normal. The osseous structures are intact. Diffuse osseous demin eralization is seen. Surgical clips are seen in the left upper quadrant. Cardiac loop recorder is not ed. Right infrahilar vascular prominence likely relates to patient rotation. IMPRESSION: Right infrahilar vascular prominence is likely on the basis of patient rotation. Atelect asis or developing pneumonia as are alternative considerations.
--- NOTE | 2020-02-24 20:12 | CT ---
EXAMINATION TYPE: CT brain wo con DATE OF EXAM: 02/24/2020 COMPARISON: None HISTORY: Mental status changes. CT DLP: 1090.4 mGycm Automated exposure control for dose reduction was used. Head CT performed using departmental protocol FINDINGS: Periventricular white matter shows patchy low attenuation. Cortical atrophy is likely age-related. Ca lvarium is intact. There is no hemorrhage or hydrocephalus. Cerebral vascular calcifications are note d. Paranasal sinuses are well aerated. Mastoid air cells are unremarkable IMPRESSION: AGE-RELATED CHANGES OF ATROPHY AND PROBABLE CHRONIC SMALL VESSEL ISCHEMIA.
[2020-02-24 20:32] LABS: Appearance,Urine Clear (Clear); Bilirubin,Urine Negative (Negative); Blood,Urine Negative (Negative); Color,Urine Light Yellow; Glucose,Urine (UA) 3+ (Negative); Ketones,Urine 1+ (Negative); Leukocyte Esterase,Urine Negative (Negative); Nitrite,Urine Negative (Negative); Protein,Urine Negative (Negative); Specific Gravity,Urine 1.019 (1.001-1.035); Urobilinogen,Urine <2.0 mg/dL (<2.0)
[2020-02-24] MEDS ORDERED: LORazepam 2 MG/ML INJ IV STA (20:35)
[2020-02-24 20:59] LABS: Phencyclidine Screen,Urine Not Detected (NotDetected); Urn Cannabinoid Scrn Not Detected (NotDetected)
[2020-02-24 21:00] LABS: Amphetamine Screen,Urine Not Detected (NotDetected); Barbiturate Screen,Urine Not Detected (NotDetected); Benzodiazepines Screen,Urine Not Detected (NotDetected); Cocaine Screen,Urine Not Detected (NotDetected); Methadone Screen, Urine Not Detected (NotDetected); Opiate Screen,Urine Not Detected (NotDetected); Oxycodone Screen, Urine Not Detected (NotDetected); Tricyclic Antidepressant,Urine Not Detected (NotDetected)
[2020-02-24 21:03] LABS: Basophils # (A) 0.1 k/uL (0-0.2); Basophils % (A) 1 %; Eosinophils % (A) 0 %; HGB 13.2 gm/dL (11.4-16.0); Hypochromasia Slight; Lymphocytes # (A) 2.5 k/uL (1.0-4.8); Lymphocytes % (A) 28 %; MCH 31.2 pg (25.0-35.0); MCHC 30.8 g/dL (31.0-37.0); MCV 101.1 fL (80.0-100.0); Macrocytosis Slight; Mean Platelet Volume 10.1; Monocytes # (A) 0.7 k/uL (0-1.0); Monocytes % (A) 8 %; Neutrophils # (A) 5.4 k/uL (1.3-7.7); Neutrophils % (A) 60 %; Platelet Count 190 k/uL (150-450); RBC 4.25 m/uL (3.80-5.40); RDW 13.5 % (11.5-15.5)
[2020-02-24 21:08] LABS: AST 27 U/L (14-36); African American GFR (CKD) >90 (>60 ml/min/1.73 sqM); Albumin 3.4 g/dL (3.5-5.0); Alcohol <10 mg/dL; Alkaline Phosphatase 62 U/L (38-126); Anion Gap 21 mmol/L; Blood Urea Nitrogen 17 mg/dL (7-17); Calcium 8.7 mg/dL (8.4-10.2); Carbon Dioxide 13 mmol/L (22-30); Chloride 105 mmol/L (98-107); Creatine Kinase <20 U/L (30-135); Glucose 255 mg/dL (74-99); Non-African American GFR(CKD) 80 (>60 ml/min/1.73 sqM); Potassium 3.5 mmol/L (3.5-5.1); Salicylate 11.9 mg/dL; Sodium 139 mmol/L (137-145); Total Bilirubin 0.4 mg/dL (0.2-1.3); Total Protein 5.9 g/dL (6.3-8.2)
[2020-02-24 21:14] LABS: ALT 21 U/L (4-34)
[2020-02-24 21:21] LABS: INR 1.1 (<1.2); Prothrombin Time 11.4 sec (9.0-12.0)
[2020-02-24 21:22] LABS: Acetaminophen >400.0 ug/mL
[2020-02-24 21:27] LABS: Partial Thromboplastin Time 20.7 sec (22.0-30.0)
[2020-02-24] MEDS ORDERED: ACETYLCYSTEINE IV 9,000 MG in DEXTROSE 5% IN WATER 200 ML IV ONE ×2 (21:45)
[2020-02-24] MEDS ORDERED: NALOXONE 0.4 MG/ML 1 ML VIAL IV PRN (21:54)
--- NOTE | 2020-02-24 21:54 | ED ---
Altered Mental Status HPI - General Chief Complaint: Altered Mental Status Stated Complaint: Possible Stroke Time Seen by Provider: 02/24/20 19:37 Source: EMS Mode of arrival: EMS Limitations: altered mental status - History of Present Illness Initial Comments: The patient is an 89-year-old female who presents to the emergency department with reported altered mental status. EMS provides the history. She does reside at [facility]. She was last heard from by her granddaughter, Alesha who is her POA. Contact information is [phone]. She states that she last heard from her around 10 AM. The staff at her facility then did a wellness c heck and found the patient's altered. She was brought into the emergency department as a possible "stroke. She had no lateralizing deficits. The patient cannot provide any history. POA denies that the patient was sick at all recently. Remainder of HPI is limited - Related Data Home Medications Medication Instructions Recorded Confirmed Aspirin EC [Ecotrin Low Dose] 81 mg PO DAILY 09/25/19 02/24/20 Atorvastatin [Lipitor] 40 mg PO DAILY 09/25/19 02/24/20 Cholecalciferol [Vitamin D3 (25 1,000 unit PO DAILY 09/25/19 02/24/20 Mcg = 1000 Iu)] Donepezil HCl [Aricept] 10 mg PO DAILY 09/25/19 02/24/20 Lactobacillus Acidophilus 1 tab PO DAILY 09/25/19 02/24/20 [Acidophilus] Metoprolol Tartrate [Lopressor] 12.5 mg PO BID 09/25/19 02/24/20 Mirabegron [Myrbetriq] 25 mg PO DAILY 09/25/19 02/24/20 Mirtazapine [Remeron] 15 mg PO DAILY 09/25/19 02/24/20 Potassium Chloride ER [K-Dur 10] 10 meq PO DAILY 09/25/19 02/24/20 Biotin 1000mcg 1,000 mcg PO DAILY 02/24/20 02/24/20 Allergies Allergy/AdvReac Type Severity Reaction Status Date / Time morphine AdvReac Unknown Verified 02/25/20 11:45 Review of Systems ROS Statement: Those systems with pertinent positive or pertinent negative responses have been documented in the HPI. ROS Other: All systems not noted in ROS Statement are negative. Past Medical History Past Medical History: Dementia Additional Past Medical History / Comment(s): loop recorder in chest History of Any Multi-Drug Resistant Organisms: None Reported Past Surgical History: Hysterectomy Past Anesthesia/Blood Transfusion Reactions: No Reported Reaction Past Psychological History: Depression Smoking Status: Never smoker Past Alcohol Use History: None Reported Past Drug Use History: None Reported - Past Family History Daughter(s) History Unknown: Yes General Exam Limitations: altered mental status General appearance: obtunded Head exam: Present: atraumatic, normocephalic Eye exam: Present: normal appearance, PERRL, EOMI. Absent: scleral icterus ENT exam: Present: mucous membranes dry Neck exam: Present: normal inspection. Absent: tenderness, meningismus, lymphadenopathy Respiratory exam: Present: normal lung sounds bilaterally. Absent: respiratory distress, wheezes, rales, rhonchi, stridor Cardiovascular Exam: Present: normal rhythm, tachycardia GI/Abdominal exam: Present: soft, normal bowel sounds. Absent: distended, tenderness, guarding, rebound, rigid Extremities exam: Present: normal inspection, full ROM, normal capillary refill. Absent: tenderness, pedal edema, joint swelling, calf tenderness Neurological exam: Present: altered, other (moves all extremities. No facial droop. Non-verbal. Does not follow commands. ) Psychiatric exam: Present: agitated Course Vital Signs 02/24/20 02/24/20 02/24/20 19:39 20:24 20:30 Temperature 98.0 F Pulse Rate 101 H 83 Respiratory 18 Rate Blood Pressure 147/62 147/62 134/62 O2 Sat by Pulse 95 95 Oximetry 02/24/20 02/24/20 20:45 21:00 Temperature Pulse Rate Respiratory Rate Blood Pressure 143/64 175/75 O2 Sat by Pulse 95 Oximetry Medical Decision Making - Medical Decision Making Upon arrival the patient is promptly placed into trauma bay 2. A thorough history and physical exam was performed. Patient has no lateralizing deficits. 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 Vitals are stable. She is immediately sent for CT of her brain which demonstrates age-related changes of atrophy and probable chronic small vessel ischemia. The patient is return to the trauma bay. She is agitated and therefore given 1 mg of Ativan. Chest x-ray demonstrates right intrahilar vascular prominence likely on the basis of patient rotation. Atelectasis or developing pneumonia our alternative considerations. We did conduct laboratory studies. Blood work is remarkable for a Tylenol level greater than 400. I immediately started N-acetylcysteine on the patient has I am unsure time of ingestion. I discussed the case with Dr. Lorenzo who was willing to admit the patient into the ICU. I also discussed the case with Dr. Baeza who agreed to consult on the patient. I did discuss case with Dr. Moya. I spoke with the patient's POA. She states that her grandmother is a DNR/DNI. Patient is currently awaiting a bed in stable condition - Lab Data Result diagrams: 02/28/20 04:44 02/28/20 04:44 Lab Results 02/24/20 02/24/20 02/24/20 Range/Units 19:41 19:41 19:41 WBC 9.0 (3.8-10.6) k/uL RBC 4.25 (3.80-5.40) m/uL Hgb 13.2 (11.4-16.0) gm/dL Hct 43.0 (34.0-46.0) % MCV 101.1 H (80.0-100.0) fL MCH 31.2 (25.0-35.0) pg MCHC 30.8 L (31.0-37.0) g/dL RDW 13.5 (11.5-15.5) % Plt Count 190 (150-450) k/uL Neutrophils % 60 % Lymphocytes % 28 % Monocytes % 8 % Eosinophils % 0 % Basophils % 1 % Neutrophils # 5.4 (1.3-7.7) k/uL Lymphocytes # 2.5 (1.0-4.8) k/uL Monocytes # 0.7 (0-1.0) k/uL Eosinophils # 0.0 (0-0.7) k/uL Basophils # 0.1 (0-0.2) k/uL Hypochromasia Slight Macrocytosis Slight PT 11.4 (9.0-12.0) sec INR 1.1 (<1.2) APTT 20.7 L (22.0-30.0) sec Sodium 139 (137-145) mmol/L Potassium 3.5 (3.5-5.1) mmol/L Chloride 105 (98-107) mmol/L Carbon Dioxide 13 L (22-30) mmol/L Anion Gap 21 mmol/L BUN 17 (7-17) mg/dL Creatinine 0.63 (0.52-1.04) mg/dL Est GFR (CKD-EPI)AfAm >90 (>60 ml/min/1.73 sqM) Est GFR (CKD-EPI)NonAf 80 (>60 ml/min/1.73 sqM) Glucose 255 H (74-99) mg/dL POC Glucose (mg/dL) (75-99) mg/dL POC Glu Residential Construction Instructor ID Calcium 8.7 (8.4-10.2) mg/dL Total Bilirubin 0.4 (0.2-1.3) mg/dL AST 27 (14-36) U/L ALT 21 (4-34) U/L Alkaline Phosphatase 62 (38-126) U/L Ammonia (<30) umol/L Creatine Kinase <20 L (30-135) U/L Troponin I (0.000-0.034) ng/mL Total Protein 5.9 L (6.3-8.2) g/dL Albumin 3.4 L (3.5-5.0) g/dL Urine Color Urine Appearance (Clear) Urine pH (5.0-8.0) Ur Specific Lucas (1.001-1.035) Urine Protein (Negative) Urine Glucose (UA) (Negative) Urine Ketones (Negative) Urine Blood (Negative) Urine Nitrite (Negative) Urine Bilirubin (Negative) Urine Urobilinogen (<2.0) mg/dL Ur Leukocyte Esterase (Negative) Salicylates 11.9 mg/dL Urine Opiates Screen (NotDetected) Ur Oxycodone Screen (NotDetected) Urine Methadone Screen (NotDetected) Ur Propoxyphene Screen (NotDetected) Acetaminophen >400.0 H* ug/mL Ur Barbiturates Screen (NotDetected) U Tricyclic Antidepress (NotDetected) Ur Phencyclidine Scrn (NotDetected) Ur Amphetamines Screen (NotDetected) U Methamphetamines Scrn (NotDetected) U Benzodiazepines Scrn (NotDetected) Urine Cocaine Screen (NotDetected) U Marijuana (THC) Screen (NotDetected) Serum Alcohol <10 mg/dL Coronavirus (PCR) (Not Detectd) 02/24/20 02/24/20 02/24/20 Range/Units 19:41 19:41 20:03 WBC (3.8-10.6) k/uL RBC (3.80-5.40) m/uL Hgb (11.4-16.0) gm/dL Hct (34.0-46.0) % MCV (80.0-100.0) fL MCH (25.0-35.0) pg MCHC (31.0-37.0) g/dL RDW (11.5-15.5) % Plt Count (150-450) k/uL Neutrophils % % Lymphocytes % % Monocytes % % Eosinophils % % Basophils % % Neutrophils # (1.3-7.7) k/uL Lymphocytes # (1.0-4.8) k/uL Monocytes # (0-1.0) k/uL Eosinophils # (0-0.7) k/uL Basophils # (0-0.2) k/uL Hypochromasia Macrocytosis PT (9.0-12.0) sec INR (<1.2) APTT (22.0-30.0) sec Sodium (137-145) mmol/L Potassium (3.5-5.1) mmol/L Chloride (98-107) mmol/L Carbon Dioxide (22-30) mmol/L Anion Gap mmol/L BUN (7-17) mg/dL Creatinine (0.52-1.04) mg/dL Est GFR (CKD-EPI)AfAm (>60 ml/min/1.73 sqM) Est GFR (CKD-EPI)NonAf (>60 ml/min/1.73 sqM) Glucose (74-99) mg/dL POC Glucose (mg/dL) 260 H (75-99) mg/dL POC Glu Residential [employer] Instructor ID Magdy Newsome Calcium (8.4-10.2) mg/dL Total Bilirubin (0.2-1.3) mg/dL AST (14-36) U/L ALT (4-34) U/L Alkaline Phosphatase (38-126) U/L Ammonia 39 H (<30) umol/L Creatine Kinase (30-135) U/L Troponin I <0.012 (0.000-0.034) ng/mL Total Protein (6.3-8.2) g/dL Albumin (3.5-5.0) g/dL Urine Color Urine Appearance (Clear) Urine pH (5.0-8.0) Ur Specific Lucas (1.001-1.035) Urine Protein (Negative) Urine Glucose (UA) (Negative) Urine Ketones (Negative) Urine Blood (Negative) Urine Nitrite (Negative) Urine Bilirubin (Negative) Urine Urobilinogen (<2.0) mg/dL Ur Leukocyte Esterase (Negative) Salicylates mg/dL Urine Opiates Screen (NotDetected) Ur Oxycodone Screen (NotDetected) Urine Methadone Screen (NotDetected) Ur Propoxyphene Screen (NotDetected) Acetaminophen ug/mL Ur Barbiturates Screen (NotDetected) U Tricyclic Antidepress (NotDetected) Ur Phencyclidine Scrn (NotDetected) Ur Amphetamines Screen (NotDetected) U Methamphetamines Scrn (NotDetected) U Benzodiazepines Scrn (NotDetected) Urine Cocaine Screen (NotDetected) U Marijuana (THC) Screen (NotDetected) Serum Alcohol mg/dL Coronavirus (PCR) (Not Detectd) 02/24/20 02/24/20 Range/Units 20:15 20:15 WBC (3.8-10.6) k/uL RBC (3.80-5.40) m/uL Hgb (11.4-16.0) gm/dL Hct (34.0-46.0) % MCV (80.0-100.0) fL MCH (25.0-35.0) pg MCHC (31.0-37.0) g/dL RDW (11.5-15.5) % Plt Count (150-450) k/uL Neutrophils % % Lymphocytes % % Monocytes % % Eosinophils % % Basophils % % Neutrophils # (1.3-7.7) k/uL Lymphocytes # (1.0-4.8) k/uL Monocytes # (0-1.0) k/uL Eosinophils # (0-0.7) k/uL Basophils # (0-0.2) k/uL Hypochromasia Macrocytosis PT (9.0-12.0) sec INR (<1.2) APTT (22.0-30.0) sec Sodium (137-145) mmol/L Potassium (3.5-5.1) mmol/L Chloride (98-107) mmol/L Carbon Dioxide (22-30) mmol/L Anion Gap mmol/L BUN (7-17) mg/dL Creatinine (0.52-1.04) mg/dL Est GFR (CKD-EPI)AfAm (>60 ml/min/1.73 sqM) Est GFR (CKD-EPI)NonAf (>60 ml/min/1.73 sqM) Glucose (74-99) mg/dL POC Glucose (mg/dL) (75-99) mg/dL POC Glu Residential Construction Instructor ID Calcium (8.4-10.2) mg/dL Total Bilirubin (0.2-1.3) mg/dL AST (14-36) U/L ALT (4-34) U/L Alkaline Phosphatase (38-126) U/L Ammonia (<30) umol/L Creatine Kinase (30-135) U/L Troponin I (0.000-0.034) ng/mL Total Protein (6.3-8.2) g/dL Albumin (3.5-5.0) g/dL Urine Color Light Yellow Urine Appearance Clear (Clear) Urine pH 5.0 (5.0-8.0) Ur Specific Lucas 1.019 (1.001-1.035) Urine Protein Negative (Negative) Urine Glucose (UA) 3+ H (Negative) Urine Ketones 1+ H (Negative) Urine Blood Negative (Negative) Urine Nitrite Negative (Negative) Urine Bilirubin Negative (Negative) Urine Urobilinogen <2.0 (<2.0) mg/dL Ur Leukocyte Esterase Negative (Negative) Salicylates mg/dL Urine Opiates Screen Not Detected (NotDetected) Ur Oxycodone Screen Not Detected (NotDetected) Urine Methadone Screen Not Detected (NotDetected) Ur Propoxyphene Screen Not Detected (NotDetected) Acetaminophen ug/mL Ur Barbiturates Screen Not Detected (NotDetected) U Tricyclic Antidepress Not Detected (NotDetected) Ur Phencyclidine Scrn Not Detected (NotDetected) Ur Amphetamines Screen Not Detected (NotDetected) U Methamphetamines Scrn Not Detected (NotDetected) U Benzodiazepines Scrn Not Detected (NotDetected) Urine Cocaine Screen Not Detected (NotDetected) U Marijuana (THC) Screen Not Detected (NotDetected) Serum Alcohol mg/dL Coronavirus (PCR) Not Detected (Not Detectd) - EKG Data EKG Comments: EKG demonstrates a sinus rhythm with ventricular rate of 73. VA interval 170. QRS 86. QTC of 471. No acute ST segment elevations or depressions concerning for ischemic changes Critical Care Time Critical Care Time: Yes Critical Care Time: 35 minutes Disposition Clinical Impression: Altered mental status, Tylenol toxicity, Acute encephalopathy Disposition: ADMITTED IP TO THIS [facility] Condition: Serious Is patient prescribed a controlled substance at d/c from ED?: No Decision to Admit Reason: Admit from EC Decision Date: 02/24/20 Decision Time: 21:54
[2020-02-24] MEDS: SODIUM CHLORIDE 0.9% 1,000 ML IV SCH (22:22)
[2020-02-24] MEDS ORDERED: ACETYLCYSTEINE IV 3,000 MG in DEXTROSE 5% IN WATER 500 ML IV ONE ×2 (22:45)
[2020-02-25] MEDS ORDERED: LORazepam 2 MG/ML INJ ONE ×4 (01:36→02:36)
[2020-02-25] MEDS ORDERED: INSULIN ASPART (NovoLOG) 100 UNIT/ML VIAL SQ ONE (01:37)
[2020-02-25] MEDS ORDERED: ACETYLCYSTEINE IV 6,000 MG in DEXTROSE 5% IN WATER 1,000 ML IV ONE ×4 (02:45→18:30)
[2020-02-25 04:21] LABS: Glucose,Whole Blood 349 mg/dL (75-99)
[2020-02-25 04:21] LABS: Glucose,Whole Blood 328 mg/dL (75-99)
[2020-02-25 04:22] LABS: Salicylate 13.2 mg/dL
[2020-02-25 04:50] LABS: Acetaminophen >400.0 ug/mL
[2020-02-25] MEDS: LORazepam 2 MG/ML INJ IV PRN ×3 (05:10→22:46)
[2020-02-25 05:20] LABS: Appearance,Urine Clear (Clear); Bilirubin,Urine Negative (Negative); Blood,Urine Negative (Negative); Color,Urine Colorless; Glucose,Urine (UA) 3+ (Negative); Leukocyte Esterase,Urine Negative (Negative); Mucus,Urine Rare /hpf; Nitrite,Urine Negative (Negative); Protein,Urine Negative (Negative); RBC,Urine <1 /hpf (0-5); Specific Gravity,Urine 1.014 (1.001-1.035); Urobilinogen,Urine <2.0 mg/dL (<2.0); WBC,Urine <1 /hpf (0-5)
[2020-02-25 05:22] LABS: Ketones,Urine 4+ (Negative)
[2020-02-25] MEDS: INSULIN ASPART (NovoLOG) 100 UNIT/ML VIAL SQ SCH ×4 (05:28→20:12)
[2020-02-25 06:11] LABS: Basophils % (A) 0 %; Eosinophils # (A) 0.1 k/uL (0-0.7); Eosinophils % (A) 1 %; HCT 41.1 % (34.0-46.0); HGB 12.9 gm/dL (11.4-16.0); Lymphocytes # (A) 0.3 k/uL (1.0-4.8); Lymphocytes % (A) 4 %; MCHC 31.5 g/dL (31.0-37.0); MCV 98.4 fL (80.0-100.0); Mean Platelet Volume 8.6; Monocytes # (A) 0.4 k/uL (0-1.0); Monocytes % (A) 5 %; Neutrophils # (A) 7.6 k/uL (1.3-7.7); Neutrophils % (A) 90 %; Platelet Count 153 k/uL (150-450); RBC 4.18 m/uL (3.80-5.40); RDW 13.4 % (11.5-15.5); WBC 8.5 k/uL (3.8-10.6)
[2020-02-25 06:19] LABS: ALT 72 U/L (4-34); AST 71 U/L (14-36); African American GFR (CKD) >90 (>60 ml/min/1.73 sqM); Albumin 3.5 g/dL (3.5-5.0); Alkaline Phosphatase 38 U/L (38-126); Anion Gap 15 mmol/L; Blood Urea Nitrogen 13 mg/dL (7-17); Calcium 8.2 mg/dL (8.4-10.2); Carbon Dioxide 14 mmol/L (22-30); Chloride 107 mmol/L (98-107); Glucose 174 mg/dL (74-99); Non-African American GFR(CKD) >90 (>60 ml/min/1.73 sqM); Potassium 3.7 mmol/L (3.5-5.1); Sodium 136 mmol/L (137-145); Total Bilirubin 0.5 mg/dL (0.2-1.3); Total Protein 6.1 g/dL (6.3-8.2)
[2020-02-25 06:39] LABS: Glucose,Whole Blood 205 mg/dL (75-99)
[2020-02-25] MEDS ORDERED: Potassium Replacement Protocol 1 EACH MISC MISCELLANE PRN (06:45)
[2020-02-25 06:49] LABS: Acetaminophen >400.0 ug/mL
[2020-02-25] MEDS: POTASSIUM CHLORIDE 10 MEQ in WATER FOR INJECTION 1 100ML.BAG IVPB SCH ×2 (06:59→16:06)
--- NOTE | 2020-02-25 11:04 | CONS ---
CONSULTATION PULMONARY/CRITICAL CARE CONSULTATION: DATE OF CONSULTATION: 02/25/2020 This is an 89-year-old female who is evaluated for altered mental status. This is an 89-year-old female who apparently was brought to the emergency room by EMS. EMS provided the history. The patient apparently had a change in mental status. She apparently is a resident at [facility]. She was last heard from by her granddaughter, Alesha, who is her power of small kick press operator. She heard apparently from her last at 10 am the day of admission. Apparently, the staff at the facility did a wellness check and found the patient to have a change in mental status. She was brought into the emergency room. She was thought to have a stroke. CT of the brain was negative with nothing acute. Drug screen was positive for excess levels of Tylenol in the bloodstream. In fact, her Tylenol level or acetaminophen level has been greater than 400 x4. The patient apparently has a history of depression, dementia, hyperlipidemia, stress urinary incontinence, and hypertension. The patient is a DNR/DNI. She was not intubated. She is currently on room air. She is getting saline at 75 mL an hour, and getting IV N-acetylcysteine for 10 more hours. She had an aspirin level that was 13.2. Her brain CT was negative. She does need consultation with Neurology and an EEG. Her electrolyte profile that show evidence of an anion gap metabolic acidosis. We check something called the delta gap. The delta gap suggested in addition, a non-anion gap metabolic acidosis as well. The patient was admitted on February 23. . HOME MEDICATIONS: Include aspirin, Lipitor, D3, Aricept, acidophilus, Lopressor, Myrbetriq, Remeron, and potassium chloride. She has also apparently been on Ceftin, folic acid, multivitamins and thiamine. ALLERGIES: MORPHINE. MEDICAL HISTORY: As noted, includes depression, dementia, hyperlipidemia, stress urinary incontinence, and hypertension. SURGICAL HISTORY: Includes a hysterectomy. She does have a loop recorder in her chest. SOCIAL HISTORY: Apparently negative for tobacco, alcohol or illicit drug use. FAMILY HISTORY: Unremarkable. REVIEW OF SYSTEMS: Cannot be obtained. The patient is currently unresponsive. Current vital signs are reviewed. Temperature is 97.7, heart rate 85, respiratory rate 17, blood pressure 167/68 mean 101, saturations on room air 95%. She does not respond to anything but painful stimuli in which case she just does have very minimal withdrawal. No verbal responses. HEENT: Examination is grossly unremarkable. No nasal O2 noted. NECK: Supple. Full range of motion. CARDIOVASCULAR: Examination reveals a regular rhythm and rate. Heart rate 85. S1, S2 normal. Heart sounds are distant. LUNGS: Reveal a few scattered rhonchi. No wheezes or crackles. ABDOMEN: Soft. No bowel sounds. EXTREMITIES: Intact. Minimal edema. No cyanosis or clubbing. SKIN: Reveals multiple areas of ecchymoses. NEUROLOGIC: Examination is difficult to assess. She is unresponsive to verbal stimuli. She does withdraw somewhat to painful stimuli. Pupils are pinpoint. A poor gag reflex is noted. LAB DATA: Reviewed. White count 8.5, hemoglobin 12.9, hematocrit 41.1, platelet count 153,000. Sodium 136, potassium 3.7, chloride 107, CO2 is 14, anion gap is 15. BUN and creatinine were 13 and 0.32. Calcium 8.2. Urine is negative. Tylenol level has been greater than 400 x4. A chest x-ray shows no acute changes. CT of the brain showed nothing acute. EKG shows sinus rhythm. Current medications include acetylcysteine IV, Ativan p.r.n., Narcan, potassium replacement, and saline at 75 mL an hour. ASSESSMENT: 1. Severe Tylenol overdose, rule out impending fulminant liver failure. 2. Possible suicide attempt. 3. History of dementia. 4. History of depression. 5. Hyperlipidemia. 6. Stress urinary incontinence. 7. Hypertension. PLAN: The patient is not receiving any supplemental oxygen. Saturations are excellent. She is unresponsive. We have asked Neurology to see her. Will get an EEG. The patient is on IV acetylcysteine. That will continue for another 10 hours. Additional recommendations and suggestions are forthcoming. Prognosis is poor. Will make sure that we talked to the [id number] and give her an update. MMODL / IJN: [id number] /
[2020-02-25 11:44] LABS: Glucose,Whole Blood 178 mg/dL (75-99)
--- NOTE | 2020-02-25 13:30 | P.CONS ---
History of Present Illness - Reason for Consult Consult date: 02/25/20 Tylenol overdose Requesting physician: Sergio Lorenzo - Chief Complaint Altered mental status - History of Present Illness 89-year-old female with medical history significant for dementia, dyslipidemia, hypertension who presented to the hospital due to altered mental status. Of note the patient is a poor historian and history is been taken on review of the electronic medical record and in conversation with the medical staff given underlying mental status. The patient's is a resident of [facility] and was brought in for evaluation of a change in mental status. CT of the brain was negative however drug screen did show a Tylenol level greater than 400. Liver enzymes normal on presentation only slightly elevated on repeat blood draw with total bilirubin 0.5, alkaline phosphatase 38, AST 71 and ALT 72. INR normal at 1.1. Ammonia 39. Patient is seen lying in bed where she is currently receiving treatment with N-acetylcysteine. Review of Systems ROS unobtainable: due to mental status (Patient with underlying dementia currently unable to provide review of system.) Past Medical History Past Medical History: Dementia Additional Past Medical History / Comment(s): loop recorder in chest History of Any Multi-Drug Resistant Organisms: None Reported Past Surgical History: Hysterectomy Past Anesthesia/Blood Transfusion Reactions: No Reported Reaction Past Psychological History: Depression Smoking Status: Never smoker Past Alcohol Use History: None Reported Past Drug Use History: None Reported - Past Family History Daughter(s) History Unknown: Yes Medications and Allergies Home Medications Medication Instructions Recorded Confirmed Type Aspirin EC [Ecotrin Low Dose] 81 mg PO DAILY 09/25/19 02/24/20 History Atorvastatin [Lipitor] 40 mg PO DAILY 09/25/19 02/24/20 History Cholecalciferol [Vitamin D3 (25 1,000 unit PO DAILY 09/25/19 02/24/20 History Mcg = 1000 Iu)] Donepezil HCl [Aricept] 10 mg PO DAILY 09/25/19 02/24/20 History Lactobacillus Acidophilus 1 tab PO DAILY 09/25/19 02/24/20 History [Acidophilus] Metoprolol Tartrate [Lopressor] 12.5 mg PO BID 09/25/19 02/24/20 History Mirabegron [Myrbetriq] 25 mg PO DAILY 09/25/19 02/24/20 History Mirtazapine [Remeron] 15 mg PO DAILY 09/25/19 02/24/20 History Potassium Chloride ER [K-Dur 10] 10 meq PO DAILY 09/25/19 02/24/20 History Biotin 1000mcg 1,000 mcg PO DAILY 02/24/20 02/24/20 History Allergies Allergy/AdvReac Type Severity Reaction Status Date / Time morphine AdvReac Unknown Verified 02/25/20 11:45 Physical Exam Vitals: Vital Signs Temp Pulse Resp BP Pulse Ox 02/25/20 13:00 77 19 149/68 94 L 02/25/20 12:00 98.3 F 86 23 134/58 94 L 02/25/20 11:00 74 25 H 131/59 94 L 02/25/20 10:00 78 20 151/78 94 L 02/25/20 09:00 89 31 H 157/74 94 L 02/25/20 08:00 97.7 F 85 17 167/68 95 02/25/20 07:00 89 13 161/84 96 02/25/20 06:00 92 12 161/90 95 02/25/20 05:00 80 20 117/63 94 L 02/25/20 04:00 97.9 F 70 20 123/57 95 02/25/20 03:00 97.3 F L 80 24 117/53 93 L 02/25/20 02:00 95.5 F L 72 17 119/79 95 02/25/20 01:00 94.3 F L 73 20 103/45 94 L 02/25/20 00:00 93.7 F L 69 15 137/91 95 02/24/20 21:00 175/75 95 02/24/20 20:45 143/64 02/24/20 20:30 134/62 02/24/20 20:24 83 147/62 95 02/24/20 19:39 98.0 F 101 H 18 147/62 95 Intake and Output 02/24/20 02/25/20 02/25/20 22:59 06:59 14:59 Intake Total 10 1229 973 Output Total 1255 445 Balance 528 Intake: IV 10 1229 973 Acetylcysteine IV 3,000 512 mg In Dextrose 5% in Water 500 ml @ 128.75 mls /hr IV ONCE ONE Rx#: [id number] Acetylcysteine IV 6,000 192 448 mg In Dextrose 5% in Water 1,000 ml @ 64.375 mls/hr IV ONCE ONE Rx#: [id number] Invasive Line 1 10 Sodium Chloride 0.9% 1, 525 525 000 ml @ 75 mls/hr IV . [id number] Rx#:[id number] Output: Urine 1255 445 Other: Voiding Method Indwelling Catheter Indwelling Catheter Weight 59.4 kg 59.4 kg On physical examination, patient appears comfortable in no apparent distress. HEAD: Normocephalic, atraumatic. EYES: No scleral icterus. No conjunctival injection. MOUTH: No lesions, tongue midline. NECK: Trachea midline, no gross abnormalities. CHEST: Clear to auscultation with no wheezing or rhonchi appreciated. HEART: S1-S2 appreciated ABDOMEN: Soft, nontender. Bowel sounds are positive. No organomegaly. No guarding or rigidity. EXTREMITIES: No pedal edema. SKIN: No rashes, no jaundice. NEUROLOGIC: Localizes to voice and pain. Not oriented. Results CBC & Chem 7: 02/25/20 05:53 02/25/20 05:53 Labs: Abnormal Lab Results - Last 24 Hours (Table) 02/24/20 02/24/20 02/24/20 Range/Units 19:41 19:41 19:41 MCV 101.1 H (80.0-100.0) fL MCHC 30.8 L (31.0-37.0) g/dL Lymphocytes # (1.0-4.8) k/uL APTT 20.7 L (22.0-30.0) sec Sodium (137-145) mmol/L Carbon Dioxide 13 L (22-30) mmol/L Creatinine (0.52-1.04) mg/dL Glucose 255 H (74-99) mg/dL POC Glucose (mg/dL) (75-99) mg/dL Calcium (8.4-10.2) mg/dL AST (14-36) U/L ALT (4-34) U/L Ammonia (<30) umol/L Creatine Kinase <20 L (30-135) U/L Total Protein 5.9 L (6.3-8.2) g/dL Albumin 3.4 L (3.5-5.0) g/dL Urine Glucose (UA) (Negative) Urine Ketones (Negative) Urine Mucus (None) /hpf Acetaminophen >400.0 H* ug/mL 02/24/20 02/24/20 02/24/20 Range/Units 19:41 20:03 20:15 MCV (80.0-100.0) fL MCHC (31.0-37.0) g/dL Lymphocytes # (1.0-4.8) k/uL APTT (22.0-30.0) sec Sodium (137-145) mmol/L Carbon Dioxide (22-30) mmol/L Creatinine (0.52-1.04) mg/dL Glucose (74-99) mg/dL POC Glucose (mg/dL) 260 H (75-99) mg/dL Calcium (8.4-10.2) mg/dL AST (14-36) U/L ALT (4-34) U/L Ammonia 39 H (<30) umol/L Creatine Kinase (30-135) U/L Total Protein (6.3-8.2) g/dL Albumin (3.5-5.0) g/dL Urine Glucose (UA) 3+ H (Negative) Urine Ketones 1+ H (Negative) Urine Mucus (None) /hpf Acetaminophen ug/mL 02/24/20 02/24/20 02/24/20 Range/Units 22:48 23:20 23:30 MCV (80.0-100.0) fL MCHC (31.0-37.0) g/dL Lymphocytes # (1.0-4.8) k/uL APTT (22.0-30.0) sec Sodium (137-145) mmol/L Carbon Dioxide (22-30) mmol/L Creatinine (0.52-1.04) mg/dL Glucose (74-99) mg/dL POC Glucose (mg/dL) 349 H (75-99) mg/dL Calcium (8.4-10.2) mg/dL AST (14-36) U/L ALT (4-34) U/L Ammonia (<30) umol/L Creatine Kinase (30-135) U/L Total Protein (6.3-8.2) g/dL Albumin (3.5-5.0) g/dL Urine Glucose (UA) 3+ H (Negative) Urine Ketones 4+ H (Negative) Urine Mucus Rare H (None) /hpf Acetaminophen >400.0 H* ug/mL 02/25/20 02/25/20 02/25/20 Range/Units 01:06 02:45 05:53 MCV (80.0-100.0) fL MCHC (31.0-37.0) g/dL Lymphocytes # 0.3 L (1.0-4.8) k/uL APTT (22.0-30.0) sec Sodium (137-145) mmol/L Carbon Dioxide (22-30) mmol/L Creatinine (0.52-1.04) mg/dL Glucose (74-99) mg/dL POC Glucose (mg/dL) 328 H (75-99) mg/dL Calcium (8.4-10.2) mg/dL AST (14-36) U/L ALT (4-34) U/L Ammonia (<30) umol/L Creatine Kinase (30-135) U/L Total Protein (6.3-8.2) g/dL Albumin (3.5-5.0) g/dL Urine Glucose (UA) (Negative) Urine Ketones (Negative) Urine Mucus (None) /hpf Acetaminophen >400.0 H* ug/mL 02/25/20 02/25/20 02/25/20 Range/Units 05:53 06:38 11:43 MCV (80.0-100.0) fL MCHC (31.0-37.0) g/dL Lymphocytes # (1.0-4.8) k/uL APTT (22.0-30.0) sec Sodium 136 L (137-145) mmol/L Carbon Dioxide 14 L (22-30) mmol/L Creatinine 0.32 L (0.52-1.04) mg/dL Glucose 174 H (74-99) mg/dL POC Glucose (mg/dL) 205 H 178 H (75-99) mg/dL Calcium 8.2 L (8.4-10.2) mg/dL AST 71 H (14-36) U/L ALT 72 H (4-34) U/L Ammonia (<30) umol/L Creatine Kinase (30-135) U/L Total Protein 6.1 L (6.3-8.2) g/dL Albumin (3.5-5.0) g/dL Urine Glucose (UA) (Negative) Urine Ketones (Negative) Urine Mucus (None) /hpf Acetaminophen >400.0 H* ug/mL Microbiology - Last 24 Hours (Table) 02/24/20 23:30 Urine Culture - Preliminary Urine,Voided CT Scan - head: report reviewed (Age-related changes and atrophy on computed to mography scan of the head) Assessment and Plan (1) Tylenol toxicity Narrative/Plan: 89-year-old female with multiple medical comorbidities including dementia presenting due to altered mental status found to have Tylenol toxicity with a Tylenol level greater than 400. Liver enzymes and mildly elevated with total bilirubin 0.5, alkaline phosphatase 38, AST 71 and ALT 72. INR 1.1, ammonia 39 with acetaminophen level were done 400 as stated. Current Visit: Yes Status: Acute Code(s): T39.1X1A - POISONING BY 4- AMINOPHENOL DERIVATIVES, ACCIDENTAL, INIT SNOMED Code(s): 82258009 (2) Altered mental status Current Visit: Yes Status: Acute Code(s): R41.82 - ALTERED MENTAL STATUS, UNSPECIFIED SNOMED Code(s): 482561083 Plan: Supportive care Continue to monitor CBC, CMP, INR Continue N-acetylcysteine per protocol Appreciate recommendations from metal box maker service Continue ICU care Thank you for allowing us to participate in the care of the patient we will continue to follow
[2020-02-25 16:41] LABS: Acetaminophen 243.5 ug/mL
--- NOTE | 2020-02-25 16:41 | EEG ---
ELECTROENCEPHALOGRAM REPORT DATE OF SERVICE: 02/25/2020 PREAMBLE: This is an 89-year-old female came with Tylenol overdose. She has altered mental status. EEG FINDINGS: A portable 21 channel routine EEG was recorded utilizing 10-20 international system with bipolar and referential montages. The background consists of well- developed, but poorly regulated, mixed frequencies in 6-7 Hz theta with intermittent 2-3 Hz moderate voltage delta activity. Background does not seem to be reactive to eye opening or closing. Different stages of sleep were not seen. Photic driving response was not clearly seen. No focal or generalized epileptiform activity was seen. The EKG channel showed no arrhythmia. IMPRESSION: This is an abnormal EEG due to background disorganization and slowing. This is suggestive of generalized cerebral dysfunction, mild to moderate degree, as can be seen with toxic metabolic encephalopathy or due to diffuse structural brain abnormality. No epileptiform activity was seen. MMODL / IJN: [id number] / MTDD
[2020-02-25 16:47] LABS: INR 1.3 (<1.2); Prothrombin Time 12.7 sec (9.0-12.0)
--- NOTE | 2020-02-25 16:48 | P.HPIM ---
History of Present Illness H&P Date: 02/25/20 Chief Complaint: Found unconscious History of presenting complaint: This is a 89-year-old patient be followed by Dr. SAXENA. Patient has a known history of dementia and loop recorder in the chest, depression. Patient is brought into the ER. She lives at [facility]. She was last heard from a granddaughter Alesha who is her POA. She and her for the patient on 10 AM. And when the staff at the facility to the wellness check fundoplication with altered mental status. She was brought in initially for diagnoses of stroke. There was no localizing findings. Patient's found to have a critical acetaminophen level. Started on Mucomyst IV admitted to the ICU. Patient remains rather lethargic. Admitting review of systems cannot be done patient very lethargic Past medical history to include: Dementia, hypertension, urinary incontinence, hyperlipidemia Social history: Lives at assisted living [facility]. No history of smoking or alcohol. Family history: Cannot obtain from the patient Physical examination: VITAL SIGNS: 98, 101, 18, 140 7062, 95% on room air GENERAL: BMI 23.2, laying in bed, lethargic. EYES: Pupils equal. Conjunctiva normal. HEENT: External appearance of nose and ears normal, oral cavity grossly normal. NECK: JVD not raised; masses not palpable. HEART: First and second heart sounds are normal; no edema. LUNGS: Respiratory rate normal; clear to auscultation. ABDOMEN: Soft, nontender, liver spleen not palpable, no masses palpable. PSYCH: [Lethargic. NEUROLOGICAL: Cranial nerves grossly intact; no facial asymmetry, power and sensation grossly intact. LYMPHATICS: No lymph nodes palpable in the axilla and neck. INVESTIGATIONS, reviewed in the clinical context: White count 9 hemoglobin 13.2 platelets 190 potassium 3.5 creatinine 0.63 Albumin 3.4 Acetaminophen more than 400 serum alcohol less than 10 salicylate 7.9 COVID-19 PCR-not detected EKG tracing personally reviewed by me-sinus rhythm with some ST segment changes Chest x-ray film personally reviewed by me-questionable infiltrate on the right side Computed tomography scan of the brain-age related atrophy Assessment: -Acute acetaminophen toxicity, possibly chronic -Acute hepatic encephalopathy -Late onset Alzheimer's dementia -Essential hypertension -Chronic urinary incontinence -Hyperlipidemia -Hyperglycemia, nondiabetic -DO NOT RESUSCITATE Plan: Patient with ICU. Getting IV fluids. Also in IV N-acetylcysteine. Nurse has been contacted the poison control. Will do every 6 hourly pro time. This is the most sensitive and earliest biochemical indicator liver failure. Currently no family the bedside. Subcu Lovenox for DVT prophylaxis. Past Medical History Past Medical History: Dementia Additional Past Medical History / Comment(s): loop recorder in chest History of Any Multi-Drug Resistant Organisms: None Reported Past Surgical History: Hysterectomy Past Anesthesia/Blood Transfusion Reactions: No Reported Reaction Past Psychological History: Depression Smoking Status: Never smoker Past Alcohol Use History: None Reported Past Drug Use History: None Reported - Past Family History Daughter(s) History Unknown: Yes Medications and Allergies Home Medications Medication Instructions Recorded Confirmed Type Aspirin EC [Ecotrin Low Dose] 81 mg PO DAILY 09/25/19 02/24/20 History Atorvastatin [Lipitor] 40 mg PO DAILY 09/25/19 02/24/20 History Cholecalciferol [Vitamin D3 (25 1,000 unit PO DAILY 09/25/19 02/24/20 History Mcg = 1000 Iu)] Donepezil HCl [Aricept] 10 mg PO DAILY 09/25/19 02/24/20 History Lactobacillus Acidophilus 1 tab PO DAILY 09/25/19 02/24/20 History [Acidophilus] Metoprolol Tartrate [Lopressor] 12.5 mg PO BID 09/25/19 02/24/20 History Mirabegron [Myrbetriq] 25 mg PO DAILY 09/25/19 02/24/20 History Mirtazapine [Remeron] 15 mg PO DAILY 09/25/19 02/24/20 History Potassium Chloride ER [K-Dur 10] 10 meq PO DAILY 09/25/19 02/24/20 History Biotin 1000mcg 1,000 mcg PO DAILY 02/24/20 02/24/20 History Allergies Allergy/AdvReac Type Severity Reaction Status Date / Time morphine AdvReac Unknown Verified 02/25/20 11:45 Physical Exam Vitals: Vital Signs Temp Pulse Resp BP Pulse Ox 02/25/20 08:00 97.7 F 85 17 167/68 95 02/25/20 07:00 89 13 161/84 96 02/25/20 06:00 92 12 161/90 95 02/25/20 05:00 80 20 117/63 94 L 05/07/20 04:00 97.9 F 70 20 123/57 95 02/25/20 03:00 97.3 F L 80 24 117/53 93 L 02/25/20 02:00 95.5 F L 72 17 119/79 95 02/25/20 01:00 94.3 F L 73 20 103/45 94 L 02/25/20 00:00 93.7 F L 69 15 137/91 95 02/24/20 21:00 175/75 95 02/24/20 20:45 143/64 02/24/20 20:30 134/62 02/24/20 20:24 83 147/62 95 02/24/20 19:39 98.0 F 101 H 18 147/62 95 Intake and Output 02/24/20 02/25/20 02/25/20 22:59 06:59 14:59 Intake Total 10 1229 278 Output Total 1255 185 Balance 10 -26 93 Intake: IV 10 1229 278 Acetylcysteine IV 3,000 512 mg In Dextrose 5% in Water 500 ml @ 128.75 mls /hr IV ONCE ONE Rx#: [id number] Acetylcysteine IV 6,000 192 128 mg In Dextrose 5% in Water 1,000 ml @ 64.375 mls/hr IV ONCE ONE Rx#: [id number] Invasive Line 1 10 Sodium Chloride 0.9% 1, 525 150 000 ml @ 75 mls/hr IV . [id number] [facility] Rx#:[id number] Output: Urine 1255 185 Other: Voiding Method Indwelling Catheter Weight 59.4 kg 59.4 kg Results CBC & Chem 7: 02/25/20 05:53 02/25/20 05:53 Labs: Abnormal Lab Results - Last 24 Hours (Table) 02/24/20 02/24/20 02/24/20 Range/Units 19:41 19:41 19:41 MCV 101.1 H (80.0-100.0) fL MCHC 30.8 L (31.0-37.0) g/dL Lymphocytes # (1.0-4.8) k/uL APTT 20.7 L (22.0-30.0) sec Sodium (137-145) mmol/L Carbon Dioxide 13 L (22-30) mmol/L Creatinine (0.52-1.04) mg/dL Glucose 255 H (74-99) mg/dL POC Glucose (mg/dL) (75-99) mg/dL Calcium (8.4-10.2) mg/dL AST (14-36) U/L ALT (4-34) U/L Ammonia (<30) umol/L Creatine Kinase <20 L (30-135) U/L Total Protein 5.9 L (6.3-8.2) g/dL Albumin 3.4 L (3.5-5.0) g/dL Urine Glucose (UA) (Negative) Urine Ketones (Negative) Urine Mucus (None) /hpf Acetaminophen >400.0 H* ug/mL 02/24/20 02/24/20 02/24/20 Range/Units 19:41 20:03 20:15 MCV (80.0-100.0) fL MCHC (31.0-37.0) g/dL Lymphocytes # (1.0-4.8) k/uL APTT (22.0-30.0) sec Sodium (137-145) mmol/L Carbon Dioxide (22-30) mmol/L Creatinine (0.52-1.04) mg/dL Glucose (74-99) mg/dL POC Glucose (mg/dL) 260 H (75-99) mg/dL Calcium (8.4-10.2) mg/dL AST (14-36) U/L ALT (4-34) U/L Ammonia 39 H (<30) umol/L Creatine Kinase (30-135) U/L Total Protein (6.3-8.2) g/dL Albumin (3.5-5.0) g/dL Urine Glucose (UA) 3+ H (Negative) Urine Ketones 1+ H (Negative) Urine Mucus (None) /hpf Acetaminophen ug/mL 02/24/20 02/24/20 02/24/20 Range/Units 22:48 23:20 23:30 MCV (80.0-100.0) fL MCHC (31.0-37.0) g/dL Lymphocytes # (1.0-4.8) k/uL APTT (22.0-30.0) sec Sodium (137-145) mmol/L Carbon Dioxide (22-30) mmol/L Creatinine (0.52-1.04) mg/dL Glucose (74-99) mg/dL POC Glucose (mg/dL) 349 H (75-99) mg/dL Calcium (8.4-10.2) mg/dL AST (14-36) U/L ALT (4-34) U/L Ammonia (<30) umol/L Creatine Kinase (30-135) U/L Total Protein (6.3-8.2) g/dL Albumin (3.5-5.0) g/dL Urine Glucose (UA) 3+ H (Negative) Urine Ketones 4+ H (Negative) Urine Mucus Rare H (None) /hpf Acetaminophen >400.0 H* ug/mL 02/25/20 02/25/20 02/25/20 Range/Units 01:06 02:45 05:53 MCV (80.0-100.0) fL MCHC (31.0-37.0) g/dL Lymphocytes # 0.3 L (1.0-4.8) k/uL APTT (22.0-30.0) sec Sodium (137-145) mmol/L Carbon Dioxide (22-30) mmol/L Creatinine (0.52-1.04) mg/dL Glucose (74-99) mg/dL POC Glucose (mg/dL) 328 H (75-99) mg/dL Calcium (8.4-10.2) mg/dL AST (14-36) U/L ALT (4-34) U/L Ammonia (<30) umol/L Creatine Kinase (30-135) U/L Total Protein (6.3-8.2) g/dL Albumin (3.5-5.0) g/dL Urine Glucose (UA) (Negative) Urine Ketones (Negative) Urine Mucus (None) /hpf Acetaminophen >400.0 H* ug/mL 02/25/20 02/25/20 Range/Units 05:53 06:38 MCV (80.0-100.0) fL MCHC (31.0-37.0) g/dL Lymphocytes # (1.0-4.8) k/uL APTT (22.0-30.0) sec Sodium 136 L (137-145) mmol/L Carbon Dioxide 14 L (22-30) mmol/L Creatinine 0.32 L (0.52-1.04) mg/dL Glucose 174 H (74-99) mg/dL POC Glucose (mg/dL) 205 H (75-99) mg/dL Calcium 8.2 L (8.4-10.2) mg/dL AST 71 H (14-36) U/L ALT 72 H (4-34) U/L Ammonia (<30) umol/L Creatine Kinase (30-135) U/L Total Protein 6.1 L (6.3-8.2) g/dL Albumin (3.5-5.0) g/dL Urine Glucose (UA) (Negative) Urine Ketones (Negative) Urine Mucus (None) /hpf Acetaminophen >400.0 H* ug/mL
--- NOTE | 2020-02-25 16:58 | P.CNNES ---
History of Present Illness Consult date: 02/25/20 Requesting physician: Cooper Moya Reason for Consult: Mental status change, Tylenol toxicity History of Present Illness: Patient is a 89-year-old female who presented to the ER with altered mental status. Patient lives in an assisted living setting at [facility]. Patient's granddaughter is her medical power of health care attorney. Patient's granddaughter spoke to her yesterday morning at 10 AM and she was fine. Later at night, the staff went in to perform welfare check and patient was found with altered mental status. Patient was brought to the hospital for possible stroke although there were no lateralizing symptoms. Patient underwent CT head showed age-related changes of atrophy and probable chronic small vessel ischemia. EKG shows sinus rhythm with premature atrial complexes, nonspecific ST abnormality. Chest x-ray showed right infrahilar vascular prominences likely on the basis of patient rotation. Atelectasis or developing pneumonia are the alternative considerations. Apparently patient does have history of dementia. Patient has been complaining of pain therefore her granddaughter have given her a bottle of Tylenol recently. Apparently 40 of them are missing. Patient's Tylenol level is > 400, INR is 1.3. AST is 71, ALT 72. INR 1.3. Aspirin level was 11.9, which is nontoxic. Troponin negative. Pascal virus PCR negative. Patient has been started on acetylcysteine. Patient is currently DO NOT RESUSCITATE. Review of Systems ROS unobtainable: due to mental status Past Medical History Past Medical History: Dementia Additional Past Medical History / Comment(s): loop recorder in chest History of Any Multi-Drug Resistant Organisms: None Reported Past Surgical History: Hysterectomy Past Anesthesia/Blood Transfusion Reactions: No Reported Reaction Past Psychological History: Depression Smoking Status: Never smoker Past Alcohol Use History: None Reported Past Drug Use History: None Reported - Past Family History Daughter(s) History Unknown: Yes Medications and Allergies Home Medications Medication Instructions Recorded Confirmed Type Aspirin EC [Ecotrin Low Dose] 81 mg PO DAILY 09/25/19 02/24/20 History Atorvastatin [Lipitor] 40 mg PO DAILY 09/25/19 02/24/20 History Cholecalciferol [Vitamin D3 (25 1,000 unit PO DAILY 09/25/19 02/24/20 History Mcg = 1000 Iu)] Donepezil HCl [Aricept] 10 mg PO DAILY 09/25/19 02/24/20 History Lactobacillus Acidophilus 1 tab PO DAILY 09/25/19 02/24/20 History [Acidophilus] Metoprolol Tartrate [Lopressor] 12.5 mg PO BID 09/25/19 02/24/20 History Mirabegron [Myrbetriq] 25 mg PO DAILY 09/25/19 02/24/20 History Mirtazapine [Remeron] 15 mg PO DAILY 09/25/19 02/24/20 History Potassium Chloride ER [K-Dur 10] 10 meq PO DAILY 09/25/19 02/24/20 History Biotin 1000mcg 1,000 mcg PO DAILY 02/24/20 02/24/20 History Allergies Allergy/AdvReac Type Severity Reaction Status Date / Time morphine AdvReac Unknown Verified 02/25/20 11:45 Physical Examination - Vital Signs Vital Signs: Vital Signs Temp Pulse Resp BP Pulse Ox 02/25/20 12:00 98.3 F 86 23 134/58 94 L 02/25/20 11:00 74 25 H 131/59 94 L 02/25/20 10:00 78 20 151/78 94 L 02/25/20 09:00 89 31 H 157/74 94 L 02/25/20 08:00 97.7 F 85 17 167/68 95 02/25/20 07:00 89 13 161/84 96 02/25/20 06:00 92 12 161/90 95 02/25/20 05:00 80 20 117/63 94 L 02/25/20 04:00 97.9 F 70 20 123/57 95 02/25/20 03:00 97.3 F L 80 24 117/53 93 L 02/25/20 02:00 95.5 F L 72 17 119/79 95 02/25/20 01:00 94.3 F L 73 20 103/45 94 L 02/25/20 00:00 93.7 F L 69 15 137/91 95 02/24/20 21:00 175/75 95 02/24/20 20:45 143/64 02/24/20 20:30 134/62 02/24/20 20:24 83 147/62 95 02/24/20 19:39 98.0 F 101 H 18 147/62 95 Intake and Output 02/24/20 02/25/2002/24/20 22:59 06:59 14:59 Intake Total 10 1229 834 Output Total 1255 385 Balance 10 449 Intake: IV 10 1229 834 Acetylcysteine IV 3,000 512 mg In Dextrose 5% in Water 500 ml @ 128.75 mls /hr IV ONCE ONE Rx#: [id number] Acetylcysteine IV 6,000 192 384 mg In Dextrose 5% in Water 1,000 ml @ 64.375 mls/hr IV ONCE ONE Rx#: [id number] Invasive Line 1 10 Sodium Chloride 0.9% 1, 525 450 000 ml @ 75 mls/hr IV . [id number] [facility] Rx#:[id number] Output: Urine 1255 385 Other: Voiding Method Indwelling Catheter Indwelling Catheter Weight 59.4 kg 59.4 kg On examination patient is an elderly female, who is obviously encephalopathic. She was able to tell me her name Naina, otherwise could not tell anything, mumbles, does not make sense. She appears somewhat restless. Besides her name, could not understand what she was mumbling. Patient did not name objects. On cranial nerve examination pupils are round and reactive to light. Visual dowell could not be tested. Extraocular muscles could not be tested. Face is symmetric. He shouldn't moves her arms and legs equally. She does hold her arms just for a short while and then brings it down equally with no obvious weakness. Reflexes are diminished and plantars are probably upgoing bilaterally. Cerebellar functions, could not be tested. Sensations equal for withdrawal on either side. Gait could not be tested. Patient does have peripheral edema. Chest is clear otherwise. Results - Laboratory Findings CBC and BMP: 02/25/20 05:53 02/25/20 05:53 Abnormal Lab Findings: Abnormal Labs 02/24/20 02/24/20 02/24/20 19:41 19:41 19:41 MCV 101.1 H MCHC 30.8 L Lymphocytes # APTT 20.7 L Sodium Carbon Dioxide 13 L Creatinine Glucose 255 H POC Glucose (mg/dL) Calcium AST ALT Ammonia Creatine Kinase <20 L Total Protein 5.9 L Albumin 3.4 L Urine Glucose (UA) Urine Ketones Urine Mucus Acetaminophen >400.0 H* 02/24/20 02/24/20 02/24/20 19:41 20:03 20:15 MCV MCHC Lymphocytes # APTT Sodium Carbon Dioxide Creatinine Glucose POC Glucose (mg/dL) 260 H Calcium AST ALT Ammonia 39 H Creatine Kinase Total Protein Albumin Urine Glucose (UA) 3+ H Urine Ketones 1+ H Urine Mucus Acetaminophen 02/24/20 02/24/20 02/24/20 22:48 23:20 23:30 MCV MCHC Lymphocytes # APTT Sodium Carbon Dioxide Creatinine Glucose POC Glucose (mg/dL) 349 H Calcium AST ALT Ammonia Creatine Kinase Total Protein Albumin Urine Glucose (UA) 3+ H Urine Ketones 4+ H Urine Mucus Rare H Acetaminophen >400.0 H* 02/25/20 02/25/20 02/25/20 01:06 02:45 05:53 MCV MCHC Lymphocytes # 0.3 L APTT Sodium Carbon Dioxide Creatinine Glucose POC Glucose (mg/dL) 328 H Calcium AST ALT Ammonia Creatine Kinase Total Protein Albumin Urine Glucose (UA) Urine Ketones Urine Mucus Acetaminophen >400.0 H* 02/25/20 02/25/20 02/25/20 05:53 06:38 11:43 MCV MCHC Lymphocytes # APTT Sodium 136 L Carbon Dioxide 14 L Creatinine 0.32 L Glucose 174 H POC Glucose (mg/dL) 205 H 178 H Calcium 8.2 L AST 71 H ALT 72 H Ammonia Creatine Kinase Total Protein 6.1 L Albumin Urine Glucose (UA) Urine Ketones Urine Mucus Acetaminophen >400.0 H* Assessment and Plan Assessment: * Altered mental status, likely related to toxic metabolic encephalopathy. * Tylenol overdose * Dementia Plan: * Patient has severe Tylenol overdosing. She is on acetylcysteine. Patient is encephalopathic likely due to toxic metabolic encephalopathy. * EEG was performed, which revealed background disorganization and slowing consistent with encephalopathy. * Your medical management. * Neurology will sign off. Please call neurology if you have any further concerns.
[2020-02-25] MEDS: SODIUM CHLORIDE 0.9% 1,000 ML IV SCH (17:22)
[2020-02-25] MEDS: ENOXAPARIN 40 MG/0.4 ML SYRINGE SQ SCH (17:24)
[2020-02-25] MEDS: LACTATED RINGERS 1,000 ML IV SCH (17:25)
[2020-02-25 17:45] LABS: Glucose,Whole Blood 164 mg/dL (75-99)
[2020-02-25 20:10] LABS: Glucose,Whole Blood 153 mg/dL (75-99)
[2020-02-26] MEDS ORDERED: cloNIDine 0.2 MG/24HR PATCH TRANSDERM SCH (02:00)
[2020-02-26] MEDS: LACTATED RINGERS 1,000 ML IV SCH ×3 (02:17→18:18)
[2020-02-26 02:21] LABS: Glucose,Whole Blood 163 mg/dL (75-99)
[2020-02-26] MEDS: INSULIN ASPART (NovoLOG) 100 UNIT/ML VIAL SQ SCH ×4 (02:24→20:28)
[2020-02-26 05:58] LABS: INR 1.4 (<1.2); Prothrombin Time 13.6 sec (9.0-12.0)
[2020-02-26 05:59] LABS: Glucose,Whole Blood 145 mg/dL (75-99)
[2020-02-26 06:02] LABS: Albumin 3.2 g/dL (3.5-5.0); Calcium 8.6 mg/dL (8.4-10.2); Potassium 2.8 mmol/L (3.5-5.1); Salicylate 4.2 mg/dL; Total Bilirubin 0.6 mg/dL (0.2-1.3)
[2020-02-26 06:06] LABS: Acetaminophen 150.7 ug/mL
[2020-02-26] MEDS: ENOXAPARIN 40 MG/0.4 ML SYRINGE SQ SCH (08:24)
[2020-02-26] MEDS ORDERED: METOPROLOL TARTRATE 5 MG/5 ML VIAL IVP PRN (08:56)
[2020-02-26] MEDS ORDERED: METOPROLOL TARTRATE 5 MG/5 ML VIAL IVP ONE (09:01)
[2020-02-26] MEDS: LABETALOL 5 MG/ML VIAL MDV IVP PRN ×4 (10:51→22:05)
[2020-02-26 11:48] LABS: Glucose,Whole Blood 142 mg/dL (75-99)
--- NOTE | 2020-02-26 12:09 | P.PN ---
Subjective Progress Note Date: 02/26/20 Principal diagnosis: Altered mental status This is an 89-year-old female patient who follows with Dr. carpenter as her primary care provider. She has a history of dementia, depression, hyperlipidemia, hypertension. She was brought into the emergency room on 02/24/2020 via EMS after developing altered mental status. She resides at [facility] once. The staff had gone to check on her and found her to have altered mental status. Initial thoughts were of a CVA however computed tomography scan of the brain was negative for anything acute. Drug screen was positive for excessive levels of Tylenol in the bloodstream. Rated of 4004 draws. She had been receiving Mucomyst. She is seen again today in follow-up in the ICU. She is more awake. Her speech is somewhat garbled. Disoriented. Acetaminophen level still 150. AST 60, ALT 81. Sodium 132. Potassium 2.8. Creatinine 0.79. She did develop atrial fibrillation. She's been hypertensive. She is maintaining good O2 saturations in the high 90s on room air. Objective - Vital Signs Vital signs: Vital Signs Temp 98.4 F 02/26/20 08:00 Pulse 71 02/26/20 11:00 Resp 19 02/26/20 11:00 BP 141/79 02/26/20 11:00 Pulse Ox 97 02/26/20 11:00 Intake & Output 02/25/20 02/26/20 02/26/20 18:59 06:59 18:59 Intake Total 1769 2068 631 Output Total 715 510 204 Balance 1054 1558 427 Weight 61.4 kg Intake: IV 1769 2068 631 Acetylcysteine IV 6,000 769 768 256 mg In Dextrose 5% in Water 1,000 ml @ 64.375 mls/hr IV ONCE ONE Rx#: [id number] Lactated Ringers 1,000 ml 250 1300 375 @ 125 mls/hr IV .Q8H [facility] Rx#:[id number] Sodium Chloride 0.9% 1, 750 000 ml @ 75 mls/hr IV . [id number] [facility] Rx#:[id number] Output: Urine 715 510 204 Other: Voiding Method Indwelling Catheter Indwelling Catheter Indwelling Catheter - Exam GENERAL EXAM: Arousable, garbled speech, frail 89-year-old female patient, on room air, comfortable in no apparent distress. HEAD: Normocephalic. EYES: Normal reaction of pupils, equal size. NOSE: Clear with pink turbinates. THROAT: No erythema or exudates. NECK: No masses, no JVD. CHEST: No chest wall deformity. LUNGS: Equal air entry with no crackles, wheeze, rhonchi or dullness. CVS: S1 and S2 normal with no audible murmur, regular rhythm. ABDOMEN: No hepatosplenomegaly, normal bowel sounds, no guarding or rigidity. SPINE: No scoliosis or deformity SKIN: No rashes CENTRAL NERVOUS SYSTEM: No focal deficits, tone is normal in all 4 extremities. EXTREMITIES: There is no peripheral edema. No clubbing, no cyanosis. Peripheral pulses are intact. - Labs CBC & Chem 7: 02/25/20 05:53 02/26/20 05:20 Labs: Abnormal Lab Results - Last 24 Hours (Table) 02/25/20 02/25/20 02/25/20 Range/Units 15:53 15:53 17:44 PT 12.7 H (9.0-12.0) sec INR 1.3 H (<1.2) Sodium (137-145) mmol/L Potassium (3.5-5.1) mmol/L Carbon Dioxide (22-30) mmol/L Glucose (74-99) mg/dL POC Glucose (mg/dL) 164 H (75-99) mg/dL AST 75 H (14-36) U/L ALT 84 H (4-34) U/L Total Protein (6.3-8.2) g/dL Albumin (3.5-5.0) g/dL Acetaminophen 243.5 H* ug/mL 02/25/20 02/26/20 02/26/20 Range/Units 20:08 02:19 05:20 PT 13.6 H (9.0-12.0) sec INR 1.4 H (<1.2) Sodium (137-145) mmol/L Potassium (3.5-5.1) mmol/L Carbon Dioxide (22-30) mmol/L Glucose (74-99) mg/dL POC Glucose (mg/dL) 153 H 163 H (75-99) mg/dL AST (14-36) U/L ALT (4-34) U/L Total Protein (6.3-8.2) g/dL Albumin (3.5-5.0) g/dL Acetaminophen ug/mL 02/26/20 02/26/20 02/26/20 Range/Units 05:20 05:58 11:46 PT (9.0-12.0) sec INR (<1.2) Sodium 132 L (137-145) mmol/L Potassium 2.8 L (3.5-5.1) mmol/L Carbon Dioxide 16 L (22-30) mmol/L Glucose 137 H (74-99) mg/dL POC Glucose (mg/dL) 145 H 142 H (75-99) mg/dL AST 60 H (14-36) U/L ALT 81 H (4-34) U/L Total Protein 6.0 L (6.3-8.2) g/dL Albumin 3.2 L (3.5-5.0) g/dL Acetaminophen 150.7 H* ug/mL Microbiology - Last 24 Hours (Table) 02/24/20 23:30 Urine Culture - Preliminary Urine,Voided Assessment and Plan Assessment: Altered mental status secondary to acetaminophen overdose, treated with acetylcysteine, acetaminophen level 150 today History of dementia History of depression History of hypertension Hyperlipidemia Hypokalemia The patient was seen and evaluated by Dr. Moya She is a bit more awake and alert today Neurology consult pending Continue to monitor acetaminophen level Monitor liver function Replace electrolytes Continue to follow I, the cosigning physician, performed a history & physical examination of the patient. Lungs sounds are clear. Maintaining good O2 saturations in the 90s on room air. I discussed the assessment and plan of care with my nurse practitioner, Kimmy Palomo. I attest to the above note as dictated by her.
[2020-02-26] MEDS: POTASSIUM CHLORIDE 10 MEQ in WATER FOR INJECTION 1 100ML.BAG IVPB SCH ×6 (14:56→22:09)
--- NOTE | 2020-02-26 15:05 | P.PN ---
Progress Note - Text Progress Note Date: 02/26/20 Chief Complaint: Found unconscious History of presenting complaint: This is a 89-year-old patient be followed by Dr. SAXENA. Patient has a known history of dementia and loop recorder in the chest, depression. Patient is brought into the ER. She lives at [facility]. She was last heard from a granddaughter Alesha who is her POA. She and her for the patient on 10 AM. And when the staff at the facility to the wellness check fundoplication with altered mental status. She was brought in initially for diagnoses of stroke. There was no localizing findings. Patient's found to have a critical acetaminophen level. . 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 Has been very lethargic. Encephalopathic. Today-but more awake. Does not communicate much. Up in a chair. Did swallow some medications with applesauce. Blood pressure. High.started to come down. Admitting review of systems cannot be done patient still lethargic Active Medications Clonidine HCl (Catapres-Tts 0.2mg Patch) 1 patch TRANSDERM Q7D [facility] Last Admin: 02/26/20 02:15 Dose: 1 patch Documented by: Enoxaparin Sodium (Lovenox) 40 mg SQ DAILY [facility] Last Admin: 02/26/20 08:24 Dose: 40 mg Documented by: Lactated Ringer's (Lactated Ringers) 1,000 mls @ 125 mls/hr IV .Q8H [facility] Last Admin: 02/26/20 09:11 Dose: 125 mls/hr Documented by: Clevidipine 25 mg/ IV Solution 50 mls @ 2 mls/hr IV .Q24H [facility]; Protocol Insulin Aspart (Novolog) 0 unit SQ Q6H [facility]; Protocol Last Admin: 02/26/20 12:28 Dose: 1 unit Documented by: Labetalol HCl (Trandate) 10 mg IVP Q4HR PRN PRN Reason: Blood Pressure - High Last Admin: 02/26/20 12:24 Dose: 10 mg Documented by: Labetalol HCl (Trandate) 20 mg IVP Q4HR PRN PRN Reason: Blood Pressure - High Lorazepam (Ativan) 1 mg IV Q1H PRN PRN Reason: Anxiety Last Admin: 02/25/20 22:46 Dose: 0.5 mg Documented by: Miscellaneous Information (Potassium Per Protocol) 1 each MISCELLANE DAILY PRN; Protocol PRN Reason: Per Protocol Naloxone HCl (Narcan) 0.2 mg IV Q2M PRN PRN Reason: Opioid Reversal Physical examination: VITAL SIGNS: 96.8, 70, 18, 167/86, 100% on room air GENERAL: sitting up in a chair, lethargicc. EYES: Pupils equal. Conjunctiva normal. HEENT: External appearance of nose and ears normal, oral cavity grossly normal. NECK: JVD not raised; masses not palpable. HEART: First and second heart sounds are normal; no edema. LUNGS: Respiratory rate normal; clear to auscultation. ABDOMEN: Soft, nontender, liver spleen not palpable, no masses palpable. PSYCH: lethargic but less so compared to yesterday NEUROLOGICAL: Cranial nerves grossly intact; no facial asymmetry, power and sensation grossly intact. INVESTIGATIONS, reviewed in the clinical context: potassium 2.8 creatinine 0.79 AST 60 ALT 81 albumin 3.2 acetaminophen 150pro time 13.6 Previous testing White count 9 hemoglobin 13.2 platelets 190 potassium 3.5 creatinine 0.63 Albumin 3.4 Acetaminophen more than 400 serum alcohol less than 10 salicylate 7.9 COVID-19 PCR-not detected EKG tracing personally reviewed by me-sinus rhythm with some ST segment changes Chest x-ray film personally reviewed by me-questionable infiltrate on the right side Computed tomography scan of the brain-age related atrophy Assessment: -Acute acetaminophen toxicity, possibly [id number]. Slow to respond -Acute hepatic encephalopathy-slow to respond -Acute hepatitis from acetaminophen with slightly elevated LFTs and prolonged pro time -Severe hypokalemia-new -Hyponatremia -Late onset Alzheimer's dementia -Essential hypertension -Chronic urinary incontinence -Hyperlipidemia -Hyperglycemia, nondiabetic -DO NOT RESUSCITATE Plan: as per poison control and 93 with the same patient currently with IV Mucomyst. Replace electrolytes. Blood pressure medication will be adjusted. Prognosis is guarded. Follow
[2020-02-26] MEDS ORDERED: ACETYLCYSTEINE IV 6,000 MG in DEXTROSE 5% IN WATER 1,000 ML IV ONE ×2 (16:00)
--- NOTE | 2020-02-26 17:04 | P.PN ---
Subjective Progress Note Date: 02/26/20 Patient was sitting in the recliner. Patient still encephalopathic, but much improved. Patient answering questions more appropriately, following directions. Denies significant headache. Objective - Vital Signs Vital signs: Vital Signs Temp 96.8 F L 02/26/20 12:00 Pulse 72 02/26/20 15:00 Resp 18 02/26/20 12:00 BP 144/95 02/26/20 16:00 Pulse Ox 99 02/26/20 16:00 Intake & Output 02/25/20 02/26/20 02/26/20 18:59 06:59 18:59 Intake Total 1769 2068 1323 Output Total 715 510 379 Balance 1054 1558 944 Weight 61.4 kg Intake: IV 1769 2068 1223 Acetylcysteine IV 6,000 769 768 573 mg In Dextrose 5% in Water 1,000 ml @ 64.375 mls/hr IV ONCE ONE Rx#: [id number] Lactated Ringers 1,000 ml 250 1300 650 @ 125 mls/hr IV .Q8H [facility] Rx#:[id number] Sodium Chloride 0.9% 1, 750 000 ml @ 75 mls/hr IV . [id number] [facility] Rx#:[id number] Intake, IV Titration 100 Amount Potassium Chloride 10 meq 100 In Water For Injection 1 100ml.bag @ 100 mls/hr IVPB Q1HR [facility] Rx#: [id number] Output: Urine 715 510 379 Other: Voiding Method Indwelling Catheter Indwelling Catheter Indwelling Catheter - Exam Patient is encephalopathic, groggy, but did wake up, and became more awake while I was examining patient. She knows that she is in [place]. Patient responds fairly well to calling her name Naina. Speech is slightly slurred due to dry mouth, but no dysarthria or aphasia. Her pupils are round and reacting. Face is symmetric. Visual dowell could not be tested. Tongue is dry. Patient's land resource specialist appears normal. Also has fairly normal strength of the biceps and triceps. Patient wiggles her feet equally very well. According to patient's nurse, patient did pivot well from recliner to the bed and appeared fairly steady. Pat ient still has mild bilateral Babinski. No focal findings on examination. - Labs CBC & Chem 7: 02/25/20 05:53 02/26/20 05:20 Labs: Abnormal Lab Results - Last 24 Hours (Table) 02/25/20 02/25/20 02/26/20 Range/Units 17:44 20:08 02:19 PT (9.0-12.0) sec INR (<1.2) Sodium (137-145) mmol/L Potassium (3.5-5.1) mmol/L Carbon Dioxide (22-30) mmol/L Glucose (74-99) mg/dL POC Glucose (mg/dL) 164 H 153 H 163 H (75-99) mg/dL AST (14-36) U/L ALT (4-34) U/L Total Protein (6.3-8.2) g/dL Albumin (3.5-5.0) g/dL Acetaminophen ug/mL 02/26/20 02/26/20 02/26/20 Range/Units 05:20 05:20 05:58 PT 13.6 H (9.0-12.0) sec INR 1.4 H (<1.2) Sodium 132 L (137-145) mmol/L Potassium 2.8 L (3.5-5.1) mmol/L Carbon Dioxide 16 L (22-30) mmol/L Glucose 137 H (74-99) mg/dL POC Glucose (mg/dL) 145 H (75-99) mg/dL AST 60 H (14-36) U/L ALT 81 H (4-34) U/L Total Protein 6.0 L (6.3-8.2) g/dL Albumin 3.2 L (3.5-5.0) g/dL Acetaminophen 150.7 H* ug/mL 02/26/20 Range/Units 11:46 PT (9.0-12.0) sec INR (<1.2) Sodium (137-145) mmol/L Potassium (3.5-5.1) mmol/L Carbon Dioxide (22-30) mmol/L Glucose (74-99) mg/dL POC Glucose (mg/dL) 142 H (75-99) mg/dL AST (14-36) U/L ALT (4-34) U/L Total Protein (6.3-8.2) g/dL Albumin (3.5-5.0) g/dL Acetaminophen ug/mL Microbiology - Last 24 Hours (Table) 02/24/20 23:30 Urine Culture - Final Urine,Voided Assessment and Plan Assessment: * Altered mental status, likely related to toxic metabolic encephalopathy. * Tylenol overdose * Dementia Plan: * Patient's metabolic encephalopathy has much improved. Patient is answering appropriately to some extent, following directions although was still very slow and groggy. Still encephalopathic. Exam is relatively nonfocal. * Patient has severe Tylenol overdosing. She is on acetylcysteine. Fortunately patient's liver functions has started to improve. * EEG was performed, which revealed background disorganization and slowing consistent with encephalopathy. No epileptiform activity seen. * Your medical management. * Neurology will sign off. Please call neurology if you have any further concerns.
[2020-02-26] MEDS: CLEVIDIPINE BUTYRATE 25 MG in EMPTY BAG 1 BAG IV SCH (20:29)
[2020-02-26 23:50] LABS: Glucose,Whole Blood 122 mg/dL (75-99)
[2020-02-27] MEDS: INSULIN ASPART (NovoLOG) 100 UNIT/ML VIAL SQ SCH ×4 (01:55→18:24)
[2020-02-27] MEDS: LACTATED RINGERS 1,000 ML IV SCH ×2 (05:28→07:49)
[2020-02-27 06:05] LABS: Glucose,Whole Blood 120 mg/dL (75-99)
--- NOTE | 2020-02-27 06:56 | P.PN ---
Subjective Progress Note Date: 02/26/20 Principal diagnosis: Elevated liver enzymes, acetaminophen toxicity Patient is seen sitting bedside no acute complaints. No acute events overnight. Objective - Vital Signs Vital signs: Vital Signs Temp 97.8 F 02/27/20 04:00 Pulse 85 02/27/20 06:00 Resp 13 02/27/20 06:00 BP 163/74 02/27/20 06:00 Pulse Ox 96 02/27/20 06:00 Intake & Output 02/26/20 02/26/20 02/27/20 06:59 18:59 06:59 Intake Total 2068 1701 1539 Output Total 186 051 0534 Balance 1558 1257 404 Weight 61.4 kg 62.7 kg Intake: IV 2068 1601 1475 Acetylcysteine IV 6,000 768 701 mg In Dextrose 5% in Water 1,000 ml @ 64.375 mls/hr IV ONCE ONE Rx#: [id number] Lactated Ringers 1,000 ml 5835 373 3093 @ 125 mls/hr IV .Q8H [facility] Rx#:[id number] Potassium Chloride 10 meq 100 In Water For Injection 1 100ml.bag @ 100 mls/hr IVPB Q1HR [facility] Rx#: [id number] Intake, IV Titration 100 64 Amount Acetylcysteine IV 6,000 64 mg In Dextrose 5% in Water 1,000 ml @ 64.375 mls/hr IV ONCE ONE Rx#: [id number] Potassium Chloride 10 meq 100 In Water For Injection 1 100ml.bag @ 100 mls/hr IVPB Q1HR [facility] Rx#: [id number] Output: Urine 087 932 5011 Other: Voiding Method Indwelling Catheter Indwelling Catheter Indwelling Catheter - Exam On physical examination, patient appears comfortable in no apparent distress. HEAD: Normocephalic, atraumatic. EYES: No scleral icterus. No conjunctival injection. MOUTH: No lesions, tongue midline. NECK: Trachea midline, no gross abnormalities. ABDOMEN: Soft, nontender to palpation. Bowel sounds are positive. No organomegaly. No guarding or rigidity. EXTREMITIES: No pedal edema. SKIN: No rashes, no jaundice. NEUROLOGIC: Alert and oriented to person. No focal deficits. - Labs CBC & Chem 7: 02/25/20 05:53 02/26/20 22:40 Labs: Abnormal Lab Results - Last 24 Hours (Table) 02/26/20 02/26/20 02/27/20 Range/Units 11:46 23:49 06:04 POC Glucose (mg/dL) 142 H 122 H 120 H (75-99) mg/dL Microbiology - Last 24 Hours (Table) 02/24/20 23:30 Urine Culture - Final Urine,Voided Assessment and Plan (1) Tylenol toxicity Narrative/Plan: 89-year-old female with multiple medical comorbidities including dementia presenting due to altered mental status found to have Tylenol toxicity with a Tylenol level greater than 400. Liver enzymes and mildly elevated with total bilirubin 0.5, alkaline phosphatase 38, AST 71 and ALT 72. INR 1.1, ammonia 39 with acetaminophen level over 400 on presentation. Liver enzymes remain stable and acetaminophen as trended down. Current Visit: Yes Status: Acute Code(s): T39.1X1A - POISONING BY 4- AMINOPHENOL DERIVATIVES, ACCIDENTAL, INIT SNOMED Code(s): 93912869 (2) Altered mental status Current Visit: Yes Status: Acute Code(s): R41.82 - ALTERED MENTAL STATUS, UNSPECIFIED SNOMED Code(s): 235727169 Plan: Supportive care Continue to monitor CBC, CMP, INR Appreciate recommendations from set illustrator service Continue ICU care Thank you for allowing us to participate in the care of the patient we will continue to follow
[2020-02-27 06:57] LABS: ALT 80 U/L (4-34); AST 84 U/L (14-36); Acetaminophen <10.0 ug/mL; African American GFR (CKD) 79 (>60 ml/min/1.73 sqM); Albumin 3.2 g/dL (3.5-5.0); Alkaline Phosphatase 33 U/L (38-126); Anion Gap 11 mmol/L; Blood Urea Nitrogen 12 mg/dL (7-17); Calcium 8.4 mg/dL (8.4-10.2); Carbon Dioxide 11 mmol/L (22-30); Chloride 113 mmol/L (98-107); Glucose 106 mg/dL (74-99); Non-African American GFR(CKD) 69 (>60 ml/min/1.73 sqM); Salicylate 1.1 mg/dL; Sodium 135 mmol/L (137-145); Total Bilirubin 2.1 mg/dL (0.2-1.3); Total Protein 6.1 g/dL (6.3-8.2)
[2020-02-27 06:59] LABS: Potassium 5.5 mmol/L (3.5-5.1)
[2020-02-27] MEDS: LABETALOL 5 MG/ML VIAL MDV IVP PRN (07:07)
[2020-02-27] MEDS: ENOXAPARIN 40 MG/0.4 ML SYRINGE SQ SCH (07:49)
--- NOTE | 2020-02-27 11:12 | P.PN ---
Subjective Progress Note Date: 02/27/20 Principal diagnosis: Altered mental status This is an 89-year-old female patient who follows with Dr. Mcdonald as her primary care provider. She has a history of dementia, depression, hyperlipidemia, hypertension. She was brought into the emergency room on 02/24/2020 via EMS after developing altered mental status. She resides at [facility] once. The staff had gone to check on her and found her to have altered mental status. Initial thoughts were of a CVA however computed tomography scan of the brain was negative for anything acute. Drug screen was positive for excessive levels of Tylenol in the bloodstream. Rated of 4004 draws. She had been receiving Mucomyst. She is seen again today in follow-up in the ICU. She is more awake. Her speech is somewhat garbled. Disoriented. Acetaminophen level still 150. AST 60, ALT 81. Sodium 132. Potassium 2.8. Creatinine 0.79. She did develop atrial fibrillation. She's been hypertensive. She is maintaining good O2 saturations in the high 90s on room air. Patient is seen today 02/27/2020 in follow-up in the intensive care unit. She is a bit more awake and alert today compared to yesterday. Answering some que stions, somewhat agitated. She is maintaining O2 saturations in the upper 90s on room air. She's been afebrile. Hemodynamically stable. Sodium 135. Potassium 5.5. Bicarb 11. Creatinine 0.77. AST 84. ALT 80. Acetaminophen less than 10. She's currently on lactated Ringer's at 125 ML's per hour. She is finishing her third bag of acetylcysteine that completes this morning. She remains in sinus rhythm with a controlled rate. Objective - Vital Signs Vital signs: Vital Signs Temp 99.7 F H 02/27/20 08:00 Pulse 86 02/27/20 10:00 Resp 15 02/27/20 10:00 BP 157/76 02/27/20 10:00 Pulse Ox 99 02/27/20 10:00 Intake & Output 02/26/20 02/27/20 02/27/20 18:59 06:59 18:59 Intake Total 1701 1539 500 Output Total 444 1135 400 Balance 1257 404 100 Weight 62.7 kg Intake: IV 1601 1475 500 Acetylcysteine IV 6,000 701 mg In Dextrose 5% in Water 1,000 ml @ 64.375 mls/hr IV ONCE ONE Rx#: [id number] Lactated Ringers 1,000 ml 800 1475 500 @ 125 mls/hr IV .Q8H [facility] Rx#:[id number] Potassium Chloride 10 meq 100 In Water For Injection 1 100ml.bag @ 100 mls/hr IVPB Q1HR [facility] Rx#: [id number] Intake, IV Titration 100 64 Amount Acetylcysteine IV 6,000 64 mg In Dextrose 5% in Water 1,000 ml @ 64.375 mls/hr IV ONCE ONE Rx#: [id number] Potassium Chloride 10 meq 100 In Water For Injection 1 100ml.bag @ 100 mls/hr IVPB Q1HR [facility] Rx#: [id number] Output: Urine 444 1135 400 Other: Voiding Method Indwelling Catheter Indwelling Catheter Indwelling Catheter - Exam GENERAL EXAM: Arousable, garbled speech, frail 89-year-old female patient, on room air, comfortable in no apparent distress. HEAD: Normocephalic. EYES: Normal reaction of pupils, equal size. NOSE: Clear with pink turbinates. THROAT: No erythema or exudates. NECK: No masses, no JVD. CHEST: No chest wall deformity. LUNGS: Equal air entry with no crackles, wheeze, rhonchi or dullness. CVS: S1 and S2 normal with no audible murmur, regular rhythm. ABDOMEN: No hepatosplenomegaly, normal bowel sounds, no guarding or rigidity. SPINE: No scoliosis or deformity SKIN: No rashes CENTRAL NERVOUS SYSTEM: No focal deficits, tone is normal in all 4 extremities. EXTREMITIES: There is no peripheral edema. No clubbing, no cyanosis. Peripheral pulses are intact. - Labs CBC & Chem 7: 02/25/20 05:53 02/27/20 06:19 Labs: Abnormal Lab Results - Last 24 Hours (Table) 02/26/20 02/26/20 02/27/20 Range/Units 11:46 23:49 06:04 Sodium (137-145) mmol/L Potassium (3.5-5.1) mmol/L Chloride (98-107) mmol/L Carbon Dioxide (22-30) mmol/L Glucose (74-99) mg/dL POC Glucose (mg/dL) 142 H 122 H 120 H (75-99) mg/dL Total Bilirubin (0.2-1.3) mg/dL AST (14-36) U/L ALT (4-34) U/L Alkaline Phosphatase (38-126) U/L Total Protein (6.3-8.2) g/dL Albumin (3.5-5.0) g/dL 02/27/20 Range/Units 06:19 Sodium 135 L (137-145) mmol/L Potassium 5.5 H (3.5-5.1) mmol/L Chloride 113 H (98-107) mmol/L Carbon Dioxide 11 L (22-30) mmol/L Glucose 106 H (74-99) mg/dL POC Glucose (mg/dL) (75-99) mg/dL Total Bilirubin 2.1 H (0.2-1.3) mg/dL AST 84 H (14-36) U/L ALT 80 H (4-34) U/L Alkaline Phosphatase 33 L (38-126) U/L Total Protein 6.1 L (6.3-8.2) g/dL Albumin 3.2 L (3.5-5.0) g/dL Microbiology - Last 24 Hours (Table) 02/24/20 23:30 Urine Culture - Final Urine,Voided Assessment and Plan Assessment: Altered mental status secondary to acetaminophen overdose, treated with acetylcysteine, acetaminophen level recovered in less than 10 today History of dementia History of depression History of hypertension Hyperlipidemia Hypokalemia The patient was seen and evaluated by Dr. Moya She is a bit more awake and alert today She can be transferred out of the ICU today Continue to follow I, the cosigning physician, performed a history & physical examination of the patient. Lungs sounds are clear. Maintaining good O2 saturations in the 90s on room air. I discussed the assessment and plan of care with my nurse practitioner, Kimmy Palomo. I attest to the above note as dictated by her.
[2020-02-27] MEDS: CLEVIDIPINE BUTYRATE 25 MG in EMPTY BAG 1 BAG IV SCH (11:58)
[2020-02-27] MEDS: SODIUM CHLORIDE 0.45% 1,000 ML IV SCH ×2 (12:00→20:23)
[2020-02-27 12:02] LABS: Glucose,Whole Blood 98 mg/dL (75-99)
--- NOTE | 2020-02-27 12:51 | P.PN ---
Subjective This is a 89-year-old patient be followed by Dr. SAXENA. Patient has a known history of dementia and loop recorder in the chest, depression. Patient is brought into the ER. She lives at [facility]. She was last heard from a granddaughter Alesha who is her POA. She and her for the patient on 10 AM. And when the staff at the facility to the wellness check fundoplication with altered mental status. She was brought in initially for diagnoses of stroke. There was no localizing findings. Patient's found to have a critical acetaminop hen level. . 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 Has been very lethargic. Encephalopathic. Today-but more awake. Does not communicate much. Up in a chair. Did swallow some medications with applesauce. Blood pressure. High.started to come down. 02/27/2020 This is a pleasant 89 years old lady who presents with Tylenol overdose and alt ered mental status on the top of her dementia. Patient remains in the ICU. Patient has been evaluated by neurologist and he signed off. Her mentation is slightly improving today. She is hemodynamically stable Her Tylenol level came back to normal reference today after several doses of Mucomyst. Sodium 135, potassium 5.5, creatinine 0.7,. Liver enzymes slightly elevated and stable. pulmonary/critical care team on the case And they recommend to transfer pt to General medical floor Objective - Vital Signs Vital signs: Vital Signs Temp 99.5 F 02/27/20 12:00 Pulse 96 02/27/20 12:00 Resp 7 L 02/27/20 12:00 BP 104/54 02/27/20 12:00 Pulse Ox 100 02/27/20 12:00 Intake & Output 02/26/20 02/27/20 02/27/20 18:59 06:59 18:59 Intake Total 1701 1539 750 Output Total 444 1135 480 Balance 1257 404 270 Weight 62.7 kg Intake: IV 1601 1475 750 Acetylcysteine IV 6,000 701 mg In Dextrose 5% in Water 1,000 ml @ 64.375 mls/hr IV ONCE ONE Rx#: [id number] Lactated Ringers 1,000 ml 800 1475 500 @ 125 mls/hr IV .Q8H [facility] Rx#:[id number] Potassium Chloride 10 meq 100 In Water For Injection 1 100ml.bag @ 100 mls/hr IVPB Q1HR [facility] Rx#: [id number] Sodium Chloride 0.9% 1, 250 000 ml @ 75 mls/hr IV . [id number] [facility] Rx#:[id number] Intake, IV Titration 100 64 Amount Acetylcysteine IV 6,000 64 mg In Dextrose 5% in Water 1,000 ml @ 64.375 mls/hr IV ONCE ONE Rx#: [id number] Potassium Chloride 10 meq 100 In Water For Injection 1 100ml.bag @ 100 mls/hr IVPB Q1HR [facility] Rx#: [id number] Output: Urine 444 1135 480 Other: Voiding Method Indwelling Catheter Indwelling Catheter Indwelling Catheter - Exam -GENERAL: The patient is alert but confused HEENT: Pupils are round and equally reacting to light. EOMI. No scleral icterus. No conjunctival pallor. Normocephalic, atraumatic. No pharyngeal erythema. No thyromegaly. CARDIOVASCULAR: S1 and S2 present. No murmurs, rubs, or gallops. PULMONARY: Chest is clear to auscultation, no wheezing or crackles. ABDOMEN: Soft, nontender, nondistended, normoactive bowel sounds. No palpable organomegaly. MUSCULOSKELETAL: No joint swelling or deformity. EXTREMITIES: No cyanosis, clubbing, or pedal edema. NEUROLOGICAL: Gross neurological examination did not reveal any focal deficits. SKIN: No rashes. no petechiae. - Labs CBC & Chem 7: 02/25/20 05:53 02/27/20 06:19 Labs: Abnormal Lab Results - Last 24 Hours (Table) 02/26/20 02/27/20 02/27/20 Range/Units 23:49 06:04 06:19 Sodium 135 L (137-145) mmol/L Potassium 5.5 H (3.5-5.1) mmol/L Chloride 113 H (98-107) mmol/L Carbon Dioxide 11 L (22-30) mmol/L Glucose 106 H (74-99) mg/dL POC Glucose (mg/dL) 122 H 120 H (75-99) mg/dL Total Bilirubin 2.1 H (0.2-1.3) mg/dL AST 84 H (14-36) U/L ALT 80 H (4-34) U/L Alkaline Phosphatase 33 L (38-126) U/L Total Protein 6.1 L (6.3-8.2) g/dL Albumin 3.2 L (3.5-5.0) g/dL Microbiology - Last 24 Hours (Table) 02/24/20 23:30 Urine Culture - Final Urine,Voided Assessment and Plan Assessment: -Acute acetaminophen toxicity,. Status post Mucomyst. Level back to normal -Acute metabolic encephalopathy-slow to respond -Acute hepatitis from acetaminophen with slightly elevated LFTs and prolonged pro time -hyperkalemia -Hyponatremia -Alzheimer's dementia -Essential hypertension -Chronic urinary incontinence -Hyperlipidemia -Hyperglycemia, nondiabetic -DO NOT RESUSCITATE DVT Prophylaxis: lovenox GI prophylaxis: Pepcid prognosis is guarded
--- NOTE | 2020-02-27 13:15 | P.PN ---
Subjective Progress Note Date: 02/27/20 Principal diagnosis: Elevated liver enzymes, acetaminophen toxicity Patient is seen sleeping in bed in the ICU. No acute events overnight. Objective - Vital Signs Vital signs: Vital Signs Temp 99.5 F 02/27/20 12:00 Pulse 96 02/27/20 12:00 Resp 7 L 02/27/20 12:00 BP 104/54 02/27/20 12:00 Pulse Ox 100 02/27/20 12:00 Intake & Output 02/26/20 02/27/20 02/27/20 18:59 06:59 18:59 Intake Total 1701 1539 750 Output Total 444 1135 480 Balance 1257 404 270 Weight 62.7 kg Intake: IV 1601 1475 750 Acetylcysteine IV 6,000 701 mg In Dextrose 5% in Water 1,000 ml @ 64.375 mls/hr IV ONCE ONE Rx#: [id number] Lactated Ringers 1,000 ml 800 1475 500 @ 125 mls/hr IV .Q8H [facility] Rx#:[id number] Potassium Chloride 10 meq 100 In Water For Injection 1 100ml.bag @ 100 mls/hr IVPB Q1HR [facility] Rx#: [id number] Sodium Chloride 0.9% 1, 250 000 ml @ 75 mls/hr IV . [id number] [facility] Rx#:[id number] Intake, IV Titration 100 64 Amount Acetylcysteine IV 6,000 64 mg In Dextrose 5% in Water 1,000 ml @ 64.375 mls/hr IV ONCE ONE Rx#: [id number] Potassium Chloride 10 meq 100 In Water For Injection 1 100ml.bag @ 100 mls/hr IVPB Q1HR [facility] Rx#: [id number] Output: Urine 444 1135 480 Other: Voiding Method Indwelling Catheter Indwelling Catheter Indwelling Catheter - Exam On physical examination, patient appears comfortable in no apparent distress. HEAD: Normocephalic, atraumatic. EYES: No scleral icterus. No conjunctival injection. MOUTH: No lesions, tongue midline. NECK: Trachea midline, no gross abnormalities. ABDOMEN: Soft, nontender to palpation. Bowel sounds are positive. No organomegaly. No guarding or rigidity. EXTREMITIES: No pedal edema. SKIN: No rashes, no jaundice. NEUROLOGIC: Alert and oriented to person, but somewhat somnolent. No focal deficits. - Labs CBC & Chem 7: 05/07/20 05:53 02/27/20 06:19 Labs: Abnormal Lab Results - Last 24 Hours (Table) 02/26/20 02/27/20 02/27/20 Range/Units 23:49 06:04 06:19 Sodium 135 L (137-145) mmol/L Potassium 5.5 H (3.5-5.1) mmol/L Chloride 113 H (98-107) mmol/L Carbon Dioxide 11 L (22-30) mmol/L Glucose 106 H (74-99) mg/dL POC Glucose (mg/dL) 122 H 120 H (75-99) mg/dL Total Bilirubin 2.1 H (0.2-1.3) mg/dL AST 84 H (14-36) U/L ALT 80 H (4-34) U/L Alkaline Phosphatase 33 L (38-126) U/L Total Protein 6.1 L (6.3-8.2) g/dL Albumin 3.2 L (3.5-5.0) g/dL Microbiology - Last 24 Hours (Table) 02/24/20 23:30 Urine Culture - Final Urine,Voided Assessment and Plan (1) Tylenol toxicity Narrative/Plan: 89-year-old female with multiple medical comorbidities including dementia presenting due to altered mental status found to have Tylenol toxicity with a Tylenol level greater than 400. Liver enzymes and mildly elevated with total bilirubin 0.5, alkaline phosphatase 38, AST 71 and ALT 72. INR 1.1, ammonia 39 with acetaminophen level over 400 on presentation. Liver enzymes remain stable but mildly elevated with total bilirubin decreased today and acetaminophen as trended down. Current Visit: Yes Status: Acute Code(s): T39.1X1A - POISONING BY 4- AMINOPHENOL DERIVATIVES, ACCIDENTAL, INIT SNOMED Code(s): 53453298 (2) Altered mental status Current Visit: Yes Status: Acute Code(s): R41.82 - ALTERED MENTAL STATUS, UNSPECIFIED SNOMED Code(s): 922436754 Plan: Supportive care Continue to monitor CBC, CMP, INR Appreciate recommendations from online merchandiser service, recommending transferred to the medical floor Thank you for allowing us to participate in the care of the patient we will continue to follow
[2020-02-27 16:53] LABS: Glucose,Whole Blood 82 mg/dL (75-99)
[2020-02-27] MEDS: FAMOTIDINE 20 MG/2 ML VIAL IV SCH (20:23)
[2020-02-27 23:56] LABS: Glucose,Whole Blood 78 mg/dL (75-99)
[2020-02-28] MEDS: INSULIN ASPART (NovoLOG) 100 UNIT/ML VIAL SQ SCH ×4 (00:25→16:54)
[2020-02-28 05:11] LABS: Basophils % (A) 0 %; Eosinophils # (A) 0.1 k/uL (0-0.7); Eosinophils % (A) 2 %; HCT 33.4 % (34.0-46.0); Lymphocytes # (A) 0.8 k/uL (1.0-4.8); Lymphocytes % (A) 12 %; MCHC 32.9 g/dL (31.0-37.0); Mean Platelet Volume 8.4; Monocytes # (A) 0.3 k/uL (0-1.0); Monocytes % (A) 4 %; Neutrophils # (A) 5.2 k/uL (1.3-7.7); Neutrophils % (A) 80 %; Platelet Count 141 k/uL (150-450); RBC 3.44 m/uL (3.80-5.40); WBC 6.5 k/uL (3.8-10.6)
[2020-02-28 05:15] LABS: INR 1.1 (<1.2); Prothrombin Time 11.3 sec (9.0-12.0)
[2020-02-28 05:20] LABS: ALT 56 U/L (4-34); AST 39 U/L (14-36); Acetaminophen <10.0 ug/mL; African American GFR (CKD) >90 (>60 ml/min/1.73 sqM); Albumin 2.5 g/dL (3.5-5.0); Alkaline Phosphatase 56 U/L (38-126); Anion Gap 6 mmol/L; Bilirubin,Unconjugated 0.8 mg/dL (0.0-1.1); Blood Urea Nitrogen 9 mg/dL (7-17); Calcium 7.9 mg/dL (8.4-10.2); Carbon Dioxide 19 mmol/L (22-30); Chloride 111 mmol/L (98-107); Glucose 82 mg/dL (74-99); Non-African American GFR(CKD) 78 (>60 ml/min/1.73 sqM); Sodium 136 mmol/L (137-145); Total Bilirubin 0.8 mg/dL (0.2-1.3); Total Protein 4.9 g/dL (6.3-8.2)
[2020-02-28] MEDS ORDERED: Potassium Replacement Protocol 1 EACH MISC MISCELLANE PRN (05:33)
[2020-02-28] MEDS: SODIUM CHLORIDE 0.45% 1,000 ML IV SCH ×3 (06:17→19:02)
[2020-02-28] MEDS: POTASSIUM CHLORIDE 10 MEQ in WATER FOR INJECTION 1 100ML.BAG IVPB SCH ×4 (06:18→12:01)
[2020-02-28] MEDS: LORazepam 2 MG/ML INJ IV PRN (06:48)
[2020-02-28] MEDS: FAMOTIDINE 20 MG/2 ML VIAL IV SCH ×2 (07:58→20:46)
[2020-02-28] MEDS: ENOXAPARIN 40 MG/0.4 ML SYRINGE SQ SCH (07:58)
--- NOTE | 2020-02-28 10:12 | XR ---
EXAMINATION TYPE: XR elbow limited RT , 2 VIEWS DATE OF EXAM ORDERED: 02/28/2020 HISTORY: fall. COMPARISON: None. FINDINGS: Limited examination shows no fracture, dislocation or elbow joint effusion. IMPRESSION: LIMITED EXAMINATION SHOWING NO DEFINITE ACUTE ABNORMALITY.
--- NOTE | 2020-02-28 10:13 | XR ---
EXAMINATION TYPE: XR shoulder complete RT , 3 VIEWS DATE OF EXAM ORDERED: 02/28/2020 HISTORY: fall. COMPARISON: None. FINDINGS: There is hypertrophic change in the right AC joint. No fracture, dislocation or other acut e osseous abnormality is seen. IMPRESSION: 1. NO ACUTE OSSEOUS LESION. 2. DEGENERATIVE CHANGE.
--- NOTE | 2020-02-28 10:16 | CT ---
EXAMINATION TYPE: CT brain wo con DATE OF EXAM: 02/28/2020 COMPARISON: Previous study dated 02/24/2020 HISTORY: altered mental status CT DLP: 1019.4 mGycm Automated exposure control for dose reduction was used. FINDINGS: There are generalized changes of sulcal prominence and ventriculomegaly, compatible with atrophic bryan nge. There is diffuse periventricular white matter lucency compatible with chronic white matter ische juan antonio change. There is no acute focal lesion, mass effect or midline shift identified. I do not see amaya dence of intracranial blood. Visualized portions of the paranasal sinuses and mastoids are clear. The bony calvarium is intact. IMPRESSION: 1. NO ACUTE INTRACRANIAL ABNORMALITY. 2. ATROPHIC CHANGE. 3. CHRONIC WHITE MATTER ISCHEMIC CHANGE.
--- NOTE | 2020-02-28 10:30 | P.PN ---
Subjective Progress Note Date: 02/28/20 Principal diagnosis: Altered mental status This is an 89-year-old female patient who follows with Dr. Mcdonald as her primary care provider. She has a history of dementia, depression, hyperlipidemia, hypertension. She was brought into the emergency room on 02/24/2020 via EMS after developing altered mental status. She resides at [facility] once. The staff had gone to check on her and found her to have altered mental status. Initial thoughts were of a CVA however computed tomography scan of the brain was negative for anything acute. Drug screen was positive for excessive levels of Tylenol in the bloodstream. Rated of 4004 draws. She had been receiving Mucomyst. She is seen again today in follow-up in the ICU. She is more awake. Her speech is somewhat garbled. Disoriented. Acetaminophen level still 150. AST 60, ALT 81. Sodium 132. Potassium 2.8. Creatinine 0.79. She did develop atrial fibrillation. She's been hypertensive. She is maintaining good O2 saturations in the high 90s on room air. Patient is seen today 02/27/2020 in follow-up in the intensive care unit. She is a bit more awake and alert today compared to yesterday. Answering some que stions, somewhat agitated. She is maintaining O2 saturations in the upper 90s on room air. She's been afebrile. Hemodynamically stable. Sodium 135. Potassium 5.5. Bicarb 11. Creatinine 0.77. AST 84. ALT 80. Acetaminophen less than 10. She's currently on lactated Ringer's at 125 ML's per hour. She is finishing her third bag of acetylcysteine that completes this morning. She remains in sinus rhythm with a controlled rate. The patient is seen today 02/28/2020 in follow-up in the intensive care unit. She is currently awake and alert. Her speech is somewhat garbled. She is disoriented to place and time. She is maintaining O2 saturations up to 100% on room air. Earlier this morning she was up in a chair at the bedside and she got out of her safety belt and was found on the floor. She was complaining of some right shoulder pain. X-ray of the right elbow showed no acute abnormality. X- ray of the right shoulder revealed no acute osseous lesion, fracture or dislocation. Computed tomography scan of the brain revealed no acute intracranial abnormalities. Urine culture reveals no growth. White count 6.5. Hemoglobin 11.0. Platelets 141. Sodium 136. Potassium 3.0. Chloride 111. Bicarb 19. Creatinine 0.67. AST 39. ALT 56. Objective - Vital Signs Vital signs: Vital Signs Temp 99.1 F 02/28/20 08:00 Pulse 82 02/28/20 08:00 Resp 22 02/28/20 08:00 BP 156/77 02/28/20 08:00 Pulse Ox 100 02/28/20 08:00 Intake & Output 02/27/20 02/28/20 02/28/20 18:59 06:59 18:59 Intake Total 875 500 Output Total 830 1650 Balance 45 -1150 Intake: IV 875 350 Lactated Ringers 1,000 ml 625 @ 125 mls/hr IV .Q8H [facility] Rx#:[id number] Potassium Chloride 10 meq 100 In Water For Injection 1 100ml.bag @ 100 mls/hr IVPB Q1HR [facility] Rx#: [id number] Sodium Chloride 0.45% 1, 250 000 ml @ 125 mls/hr IV . Q8H [facility] Rx#:[id number] Sodium Chloride 0.9% 1, 250 000 ml @ 75 mls/hr IV . [id number] [facility] Rx#:[id number] Oral 150 Output: Urine 830 1650 Other: Voiding Method Indwelling Catheter Indwelling Catheter Indwelling Catheter - Exam GENERAL EXAM: Alert, garbled speech, frail 89-year-old female patient, on room air, comfortable in no apparent distress. HEAD: Normocephalic. EYES: Normal reaction of pupils, equal size. NOSE: Clear with pink turbinates. THROAT: No erythema or exudates. NECK: No masses, no JVD. CHEST: No chest wall deformity. LUNGS: Equal air entry with no crackles, wheeze, rhonchi or dullness. CVS: S1 and S2 normal with no audible murmur, regular rhythm. ABDOMEN: No hepatosplenomegaly, normal bowel sounds, no guarding or rigidity. SPINE: No scoliosis or deformity SKIN: No rashes, multiple areas of ecchymosis CENTRAL NERVOUS SYSTEM: No focal deficits, tone is normal in all 4 extremities. EXTREMITIES: There is no peripheral edema. No clubbing, no cyanosis. Peripheral pulses are intact. - Labs CBC & Chem 7: 02/28/20 04:44 02/28/20 04:44 Labs: Abnormal Lab Results - Last 24 Hours (Table) 02/28/20 02/28/20 Range/Units 04:44 04:44 RBC 3.44 L (3.80-5.40) m/uL Hgb 11.0 L (11.4-16.0) gm/dL Hct 33.4 L (34.0-46.0) % Plt Count 141 L (150-450) k/uL Lymphocytes # 0.8 L (1.0-4.8) k/uL Sodium 136 L (137-145) mmol/L Potassium 3.0 L (3.5-5.1) mmol/L Chloride 111 H (98-107) mmol/L Carbon Dioxide 19 L (22-30) mmol/L Calcium 7.9 L (8.4-10.2) mg/dL AST 39 H (14-36) U/L ALT 56 H (4-34) U/L Total Protein 4.9 L (6.3-8.2) g/dL Albumin 2.5 L (3.5-5.0) g/dL Assessment and Plan Assessment: Altered mental status secondary to acetaminophen overdose, treated with acetylcysteine, acetaminophen level recovered in less than 10 today History of dementia History of depression History of hypertension Hyperlipidemia Hypokalemia Patient found on floor out of her recliner earlier this morning with right shoulder pain, no acute fractures. Computed tomography scan of the head no acute abnormality Plan: The patient was seen and evaluated by Dr. Moya She is more awake and alert today She can be transferred out of the ICU today Continue to follow I, the cosigning physician, performed a history & physical examination of the patient. Lungs sounds are clear. Maintaining good O2 saturations in the 90s on room air. I discussed the assessment and plan of care with my nurse practitioner, Kimmy Palomo. I attest to the above note as dictated by her.
[2020-02-28 11:29] LABS: Glucose,Whole Blood 74 mg/dL (75-99)
[2020-02-28 16:55] LABS: Glucose,Whole Blood 71 mg/dL (75-99)
--- NOTE | 2020-02-28 17:42 | P.PN ---
Subjective This is a 89-year-old patient be followed by Dr. SAXENA. Patient has a known history of dementia and loop recorder in the chest, depression. Patient is brought into the ER. She lives at [facility]. She was last heard from a granddaughter Alesha who is her POA. She and her for the patient on 10 AM. And when the staff at the facility to the wellness check fundoplication with altered mental status. She was brought in initially for diagnoses of stroke. There was no localizing findings. Patient's found to have a critical acetaminop hen level. . 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 Has been very lethargic. Encephalopathic. Today-but more awake. Does not communicate much. Up in a chair. Did swallow some medications with applesauce. Blood pressure. High.started to come down. 02/27/2020 This is a pleasant 89 years old lady who presents with Tylenol overdose and alt ered mental status on the top of her dementia. Patient remains in the ICU. Patient has been evaluated by neurologist and he signed off. Her mentation is slightly improving today. She is hemodynamically stable Her Tylenol level came back to normal reference today after several doses of Mucomyst. Sodium 135, potassium 5.5, creatinine 0.7,. Liver enzymes slightly elevated and stable. pulmonary/critical care team on the case And they recommend to transfer pt to General medical floor 02/28/2020 Patient remains in the ICU, her mentation is improving gradually, today she is awake and alert. No her for some last name which is improvement compared to yesterday, she knows she is in her bed but she is disoriented to other per meters. This morning she was found on the floor on her face down, she complains from pain in her right shoulder, CT of the brain showed no hemorrhage, x-ray of the right shoulder and elbow were negative for fracture. Tylenol level already came back with a reference range. Rest of vitals stable, labs are stable as well. Review of systems: Not applicable as patient could not provide information Active Medications Generic Name Dose Route Start Last Admin Trade Name Freq PRN Reason Stop Dose Admin Clonidine HCl 1 patch 02/26/20 02:00 02/26/20 02:15 Catapres-Tts 0.2mg Patch TRANSDERM 1 patch Q7D [facility] Administration Enoxaparin Sodium 40 mg 02/25/20 17:00 02/28/20 07:58 Lovenox SQ 40 mg DAILY [facility] Administration Famotidine 10 mg 02/27/20 21:00 02/28/20 07:58 Pepcid IV 10 mg Q12HR [facility] Administration Sodium Chloride 1,000 mls @ 125 mls/hr 02/27/20 11:30 02/28/20 12:02 Saline 0.45% IV 125 mls/hr .Q8H [facility] Administration Insulin Aspart 0 unit 02/25/20 01:00 02/28/20 16:54 Novolog SQ Not Given Q6H [facility] Protocol Lorazepam 1 mg 02/25/20 04:31 02/28/20 06:48 Ativan IV 1 mg Q1H PRN Administration Anxiety Miscellaneous Information 1 each 02/25/20 06:45 Potassium Per Protocol MISCELLANE DAILY PRN Per Protocol Protocol Miscellaneous Information 1 each 02/28/20 05:33 Potassium Per Protocol MISCELLANE DAILY PRN Per Protocol Protocol Naloxone HCl 0.2 mg 02/24/20 21:54 Narcan IV Q2M PRN Opioid Reversal Objective - Vital Signs Vital signs: Vital Signs Temp 97.8 F 02/28/20 15:00 Pulse 85 02/28/20 15:00 Resp 16 02/28/20 15:00 BP 151/63 02/28/20 15:00 Pulse Ox 97 02/28/20 15:00 Intake & Output 02/27/20 02/28/20 02/28/20 18:59 06:59 18:59 Intake Total 749 652 5181 Output Total 830 1650 465 Balance 45 -1150 535 Intake: IV 875 350 900 Lactated Ringers 1,000 ml 625 @ 125 mls/hr IV .Q8H [facility] Rx#:[id number] Potassium Chloride 10 meq 100 In Water For Injection 1 100ml.bag @ 100 mls/hr IVPB Q1HR [facility] Rx#: [id number] Sodium Chloride 0.45% 1, 250 900 000 ml @ 125 mls/hr IV . Q8H [facility] Rx#:[id number] Sodium Chloride 0.9% 1, 250 000 ml @ 75 mls/hr IV . [id number] [facility] Rx#:[id number] Intake, IV Titration 100 Amount Potassium Chloride 10 meq 100 In Water For Injection 1 100ml.bag @ 100 mls/hr IVPB Q1HR [facility] Rx#: [id number] Oral 150 Output: Urine 830 1650 465 Other: Voiding Method Indwelling Catheter Indwelling Catheter Indwelling Catheter - Exam -GENERAL: The patient is alert but confused HEENT: Pupils are round and equally reacting to light. EOMI. No scleral icterus. No conjunctival pallor. Normocephalic, atraumatic. No pharyngeal erythema. No thyromegaly. CARDIOVASCULAR: S1 and S2 present. No murmurs, rubs, or gallops. PULMONARY: Chest is clear to auscultation, no wheezing or crackles. ABDOMEN: Soft, nontender, nondistended, normoactive bowel sounds. No palpable organomegaly. MUSCULOSKELETAL: No joint swelling or deformity. EXTREMITIES: No cyanosis, clubbing, or pedal edema. NEUROLOGICAL: Gross neurological examination did not reveal any focal deficits. SKIN: No rashes. no petechiae. - Labs CBC & Chem 7: 02/28/20 04:44 02/28/20 04:44 Labs: Abnormal Lab Results - Last 24 Hours (Table) 02/28/20 02/28/20 02/28/20 Range/Units 04:44 04:44 11:27 RBC 3.44 L (3.80-5.40) m/uL Hgb 11.0 L (11.4-16.0) gm/dL Hct 33.4 L (34.0-46.0) % Plt Count 141 L (150-450) k/uL Lymphocytes # 0.8 L (1.0-4.8) k/uL Sodium 136 L (137-145) mmol/L Potassium 3.0 L (3.5-5.1) mmol/L Chloride 111 H (98-107) mmol/L Carbon Dioxide 19 L (22-30) mmol/L POC Glucose (mg/dL) 74 L (75-99) mg/dL Calcium 7.9 L (8.4-10.2) mg/dL AST 39 H (14-36) U/L ALT 56 H (4-34) U/L Total Protein 4.9 L (6.3-8.2) g/dL Albumin 2.5 L (3.5-5.0) g/dL 02/28/20 Range/Units 16:53 RBC (3.80-5.40) m/uL Hgb (11.4-16.0) gm/dL Hct (34.0-46.0) % Plt Count (150-450) k/uL Lymphocytes # (1.0-4.8) k/uL Sodium (137-145) mmol/L Potassium (3.5-5.1) mmol/L Chloride (98-107) mmol/L Carbon Dioxide (22-30) mmol/L POC Glucose (mg/dL) 71 L (75-99) mg/dL Calcium (8.4-10.2) mg/dL AST (14-36) U/L ALT (4-34) U/L Total Protein (6.3-8.2) g/dL Albumin (3.5-5.0) g/dL Assessment and Plan Assessment: -Acute acetaminophen toxicity,. Status post Mucomyst. Level back to normal -Acute metabolic encephalopathy-slow to respond -Acute hepatitis from acetaminophen with slightly elevated LFTs and prolonged pro time -hyperkalemia -Hyponatremia -Alzheimer's dementia -Essential hypertension -Chronic urinary incontinence -Hyperlipidemia -Hyperglycemia, nondiabetic -DO NOT RESUSCITATE DVT Prophylaxis: lovenox GI prophylaxis: Pepcid prognosis is guarded
[2020-02-29 00:04] LABS: Glucose,Whole Blood 83 mg/dL (75-99)
[2020-02-29] MEDS: SODIUM CHLORIDE 0.45% 1,000 ML IV SCH ×2 (00:31→16:41)
[2020-02-29 04:37] LABS: Basophils % (A) 0 %; Eosinophils # (A) 0.1 k/uL (0-0.7); Eosinophils % (A) 3 %; HCT 32.2 % (34.0-46.0); HGB 10.9 gm/dL (11.4-16.0); Lymphocytes # (A) 0.6 k/uL (1.0-4.8); Lymphocytes % (A) 16 %; MCH 32.5 pg (25.0-35.0); MCHC 33.9 g/dL (31.0-37.0); MCV 95.8 fL (80.0-100.0); Mean Platelet Volume 8.2; Monocytes # (A) 0.2 k/uL (0-1.0); Monocytes % (A) 4 %; Neutrophils % (A) 76 %; Platelet Count 124 k/uL (150-450); RBC 3.36 m/uL (3.80-5.40)
[2020-02-29 04:50] LABS: African American GFR (CKD) >90 (>60 ml/min/1.73 sqM); Anion Gap 8 mmol/L; Blood Urea Nitrogen 6 mg/dL (7-17); Calcium 8.1 mg/dL (8.4-10.2); Carbon Dioxide 20 mmol/L (22-30); Chloride 107 mmol/L (98-107); Glucose 81 mg/dL (74-99); Non-African American GFR(CKD) 81 (>60 ml/min/1.73 sqM); Sodium 135 mmol/L (137-145)
[2020-02-29] MEDS: POTASSIUM CHLORIDE 10 MEQ in WATER FOR INJECTION 1 100ML.BAG IVPB SCH ×4 (05:44→10:56)
[2020-02-29 06:03] LABS: Glucose,Whole Blood 88 mg/dL (75-99)
[2020-02-29] MEDS: INSULIN ASPART (NovoLOG) 100 UNIT/ML VIAL SQ SCH ×4 (07:08→20:20)
[2020-02-29] MEDS ORDERED: BIOTIN 1000 MCG PO SCH (09:00)
[2020-02-29] MEDS: METOPROLOL TARTRATE 12.5 MG TAB PO SCH ×2 (09:33→20:26)
[2020-02-29] MEDS: ATORVASTATIN 40 MG TAB PO SCH (09:33)
[2020-02-29] MEDS: ENOXAPARIN 40 MG/0.4 ML SYRINGE SQ SCH (09:33)
[2020-02-29] MEDS: FAMOTIDINE 20 MG/2 ML VIAL IV SCH ×2 (09:33→20:26)
[2020-02-29] MEDS: POTASSIUM CHLORIDE ER 10 MEQ TAB.ER.PRT PO SCH (09:34)
[2020-02-29] MEDS: PATIENT'S OWN MED (Mirabegron [Myrbetriq] 25 MG) PO SCH (09:34)
[2020-02-29] MEDS: CHOLECALCIFEROL 1,000 UNIT TAB PO SCH (09:34)
[2020-02-29] MEDS: ASPIRIN 81 MG PO SCH (09:34)
[2020-02-29] MEDS: DONEPEZIL 10 MG TAB PO SCH (09:40)
[2020-02-29 11:54] LABS: Glucose,Whole Blood 88 mg/dL (75-99)
--- NOTE | 2020-02-29 11:54 | P.PN ---
Subjective Progress Note Date: 02/29/20 This is an 89-year-old female patient who follows with Dr. Mcdonald as her primary care provider. She has a history of dementia, depression, hyperlipidemia, hypertension. She was brought into the emergency room on 02/24/2020 via EMS after developing altered mental status. Initial thoughts were of a CVA however computed tomography scan of the brain was negative for anything acute. Drug screen was positive for excessive levels of Tylenol in the bloodstream. Levels of 4004 draws. She had been receiving Mucomyst. She developed Atrial fibrillation. She's been hypertensive. . During the course of the treatment, the patient remained hemodynamically stable. Liver function tests remain within reasonable range and there was no significant hepatotoxicity developing from this acute Tylenol toxicity. Renal function also stayed stable with a creatinine being within normal range. The patient received IV fluids. She did have some disorientation and his speech was garbled. On today's evaluation there is improvement in her speech and she was able to answer questions appropriately without any focal neurological deficits. A repeat CAT scan of the brain was done and showed no acute cranial abnormalities. Objective - Vital Signs Vital signs: Vital Signs Temp 98.8 F 02/29/20 07:00 Pulse 88 02/29/20 07:00 Resp 16 02/29/20 07:00 BP 164/80 02/29/20 07:00 Pulse Ox 100 02/29/20 07:00 Intake & Output 02/28/20 02/29/20 02/29/20 18:59 06:59 18:59 Intake Total 1000 1400 Output Total 465 1650 Balance 535 -250 Intake: IV 900 1300 Sodium Chloride 0.45% 1, 900 1300 000 ml @ 125 mls/hr IV . Q8H [facility] Rx#:[id number] Intake, IV Titration 100 100 Amount Potassium Chloride 10 meq 100 In Water For Injection 1 100ml.bag @ 100 mls/hr IVPB Q1HR [facility] Rx#: [id number] Potassium Chloride 10 meq 100 In Water For Injection 1 100ml.bag @ 100 mls/hr IVPB Q1HR [facility] Rx#: [id number] Output: Urine 465 1650 Other: Voiding Method Indwelling Catheter Indwelling Catheter Indwelling Catheter - Exam GENERAL EXAM: Alert, garbled speech, frail 89-year-old female patient, on room air, comfortable in no apparent distress. HEAD: Normocephalic. EYES: Normal reaction of pupils, equal size. NOSE: Clear with pink turbinates. THROAT: No erythema or exudates. NECK: No masses, no JVD. CHEST: No chest wall deformity. LUNGS: Equal air entry with no crackles, wheeze, rhonchi or dullness. CVS: S1 and S2 normal with no audible murmur, regular rhythm. ABDOMEN: No hepatosplenomegaly, normal bowel sounds, no guarding or rigidity. SPINE: No scoliosis or deformity SKIN: No rashes, multiple areas of ecchymosis CENTRAL NERVOUS SYSTEM: No focal deficits, tone is normal in all 4 extremities. EXTREMITIES: There is no peripheral edema. No clubbing, no cyanosis. Peripheral pulses are intact. - Labs CBC & Chem 7: 02/29/20 04:07 02/29/20 04:07 Labs: Abnormal Lab Results - Last 24 Hours (Table) 02/28/20 02/29/20 02/29/20 Range/Units 16:53 04:07 04:07 RBC 3.36 L (3.80-5.40) m/uL Hgb 10.9 L (11.4-16.0) gm/dL Hct 32.2 L (34.0-46.0) % Plt Count 124 L (150-450) k/uL Lymphocytes # 0.6 L (1.0-4.8) k/uL Sodium 135 L (137-145) mmol/L Potassium 3.0 L (3.5-5.1) mmol/L Carbon Dioxide 20 L (22-30) mmol/L BUN 6 L (7-17) mg/dL POC Glucose (mg/dL) 71 L (75-99) mg/dL Calcium 8.1 L (8.4-10.2) mg/dL Assessment and Plan Plan: 1 acute Tylenol toxicity, treated with Mucomyst and the levels normalized 2 altered mental status, with The Brain Showing No Definite Acute Abnormalities. Rule Out Underlying Metabolic Encephalopathy 3 History of dementia, likely of an Alzheimer's type 4 History of depression 5 History of hypertension 6 Hyperlipidemia 7 Hypokalemia 8 Patient found on floor out of her recliner earlier this morning with right shoulder pain, no acute fractures. Computed tomography scan of the head no acute abnormality 9 Chronic urinary incontinence 10 DO NOT RESUSCITATE CODE STATUS Plan Restart home medication including Aricept, Remeron, metoprolol, and Myrbetriq and Lipitor Monitor mental status Carotid IV fluids to 50 mL an hour She passed a swallow evaluation Advance diet as tolerated Transferred to medical surgical floor
[2020-02-29] MEDS: LORazepam 2 MG/ML INJ IV PRN ×2 (14:50→23:31)
--- NOTE | 2020-02-29 16:47 | P.PN ---
Subjective This is a 89-year-old patient be followed by Dr. SAXENA. Patient has a known history of dementia and loop recorder in the chest, depression. Patient is brought into the ER. She lives at [facility]. She was last heard from a granddaughter Alesha who is her POA. She and her for the patient on 10 AM. And when the staff at the facility to the wellness check fundoplication with altered mental status. She was brought in initially for diagnoses of stroke. There was no localizing findings. Patient's found to have a critical acetaminop hen level. . 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 Has been very lethargic. Encephalopathic. Today-but more awake. Does not communicate much. Up in a chair. Did swallow some medications with applesauce. Blood pressure. High.started to come down. 02/27/2020 This is a pleasant 89 years old lady who presents with Tylenol overdose and alt ered mental status on the top of her dementia. Patient remains in the ICU. Patient has been evaluated by neurologist and he signed off. Her mentation is slightly improving today. She is hemodynamically stable Her Tylenol level came back to normal reference today after several doses of Mucomyst. Sodium 135, potassium 5.5, creatinine 0.7,. Liver enzymes slightly elevated and stable. pulmonary/critical care team on the case And they recommend to transfer pt to General medical floor 02/28/2020 Patient remains in the ICU, her mentation is improving gradually, today she is awake and alert. No her for some last name which is improvement compared to yesterday, she knows she is in her bed but she is disoriented to other per meters. This morning she was found on the floor on her face down, she complains from pain in her right shoulder, CT of the brain showed no hemorrhage, x-ray of the right shoulder and elbow were negative for fracture. Tylenol level already came back with a reference range. Rest of vitals stable, labs are stable as well. 02/29/2020 Patient is seen and examined in the ICU. She is getting more awake and answers questions easily but she is disoriented, looks like she is close to her baseline of dementia for example when asked where she is at she talks about a thief and catching a thief. However shows a pleasant and comfortable. Hemodynamically stable. She is able to finish about 25% of her meals Remains on gentle hydration with finger lactate but the dose was lowered to 50 mL per hour. She is considered for transfer to general medical floor Review of systems: Review of systems CONSTITUTIONAL: No fever, no malaise, no fatigue. PULMONARY: No shortness of breath, no cough, no hemoptysis. GASTROINTESTINAL: No diarrhea, no nausea, no vomiting, no abdominal pain. Normoactive bowel sounds. NEUROLOGICAL: No headaches, no weakness, no numbness. GENITOURINARY: Denies any burning micturition, frequency, or urgency. MUSCULOSKELETAL/RHEUMATOLOGICAL: Denies any joint pain, swelling, or any muscle pain. Active Medications Generic Name Dose Route Start Last Admin Trade Name Freq PRN Reason Stop Dose Admin Aspirin 81 mg 02/29/20 09:00 02/29/20 09:34 Aspirin PO 81 mg DAILY [facility] Administration Atorvastatin Calcium 40 mg 02/29/20 09:00 02/29/20 09:33 Lipitor PO Not Given DAILY [facility] Cholecalciferol 1,000 unit 02/29/20 09:00 02/29/20 09:34 Vitamin D3 (25 Mcg = 1000 Iu) PO Not Given DAILY [facility] Clonidine HCl 1 patch 02/26/20 02:00 02/26/20 02:15 Catapres-Tts 0.2mg Patch TRANSDERM 1 patch Q7D [facility] Administration Donepezil HCl 10 mg 02/29/20 09:00 02/29/20 09:40 Aricept PO Not Given DAILY [facility] Enoxaparin Sodium 40 mg 02/25/20 17:00 02/29/20 09:33 Lovenox SQ 40 mg DAILY [facility] Administration Famotidine 10 mg 02/27/20 21:00 02/29/20 09:33 Pepcid IV 10 mg Q12HR [facility] Administration Sodium Chloride 1,000 mls @ 50 mls/hr 02/27/20 11:30 02/29/20 16:41 Saline 0.45% IV 50 mls/hr .Q20H [facility] Administration Insulin Aspart 0 unit 02/29/20 07:30 02/29/20 12:09 Novolog SQ Not Given ACHS [facility] Protocol Lorazepam 1 mg 02/25/20 04:31 02/29/20 14:50 Ativan IV 0.5 mg Q1H PRN Administration Anxiety Metoprolol Tartrate 12.5 mg 02/29/20 09:00 02/29/20 09:33 Lopressor PO 12.5 mg BID [facility] Administration Mirtazapine 15 mg 02/29/20 21:00 Remeron PO HS [facility] Miscellaneous Information 1 each 02/25/20 06:45 Potassium Per Protocol MISCELLANE DAILY PRN Per Protocol Protocol Miscellaneous Information 1 each 02/28/20 05:33 Potassium Per Protocol MISCELLANE DAILY PRN Per Protocol Protocol Naloxone HCl 0.2 mg 02/24/20 21:54 Narcan IV Q2M PRN Opioid Reversal Patient's Own Med ( 25 mg 02/29/20 09:00 02/29/20 09:34 Mirabegron [ PO Not Given Myrbetriq] 25 Mg) DAILY [facility] Potassium Chloride 10 meq 02/29/20 09:00 02/29/20 09:34 K-Dur 10 PO Not Given DAILY [facility] Objective - Vital Signs Vital signs: Vital Signs Temp 98.8 F 02/29/20 07:00 Pulse 88 02/29/20 07:00 Resp 16 02/29/20 07:00 BP 164/80 02/29/20 07:00 Pulse Ox 100 02/29/20 07:00 Intake & Output 02/28/20 02/29/20 02/29/20 18:59 06:59 18:59 Intake Total 1000 1400 Output Total 465 1650 Balance 535 -250 Intake: IV 900 1300 Sodium Chloride 0.45% 1, 900 1300 000 ml @ 125 mls/hr IV . Q8H [facility] Rx#:[id number] Intake, IV Titration 100 100 Amount Potassium Chloride 10 meq 100 In Water For Injection 1 100ml.bag @ 100 mls/hr IVPB Q1HR [facility] Rx#: [id number] Potassium Chloride 10 meq 100 In Water For Injection 1 100ml.bag @ 100 mls/hr IVPB Q1HR [facility] Rx#: [id number] Output: Urine 465 1650 Other: Voiding Method Indwelling Catheter Indwelling Catheter Indwelling Catheter - Exam -GENERAL: The patient is alert but confused HEENT: Pupils are round and equally reacting to light. EOMI. No scleral icterus. No conjunctival pallor. Normocephalic, atraumatic. No pharyngeal erythema. No thyromegaly. CARDIOVASCULAR: S1 and S2 present. No murmurs, rubs, or gallops. PULMONARY: Chest is clear to auscultation, no wheezing or crackles. ABDOMEN: Soft, nontender, nondistended, normoactive bowel sounds. No palpable organomegaly. MUSCULOSKELETAL: No joint swelling or deformity. EXTREMITIES: No cyanosis, clubbing, or pedal edema. NEUROLOGICAL: Gross neurological examination did not reveal any focal deficits. SKIN: No rashes. no petechiae. - Labs CBC & Chem 7: 02/29/20 04:07 02/29/20 04:07 Labs: Abnormal Lab Results - Last 24 Hours (Table) 02/28/20 02/29/20 02/29/20 Range/Units 16:53 04:07 04:07 RBC 3.36 L (3.80-5.40) m/uL Hgb 10.9 L (11.4-16.0) gm/dL Hct 32.2 L (34.0-46.0) % Plt Count 124 L (150-450) k/uL Lymphocytes # 0.6 L (1.0-4.8) k/uL Sodium 135 L (137-145) mmol/L Potassium 3.0 L (3.5-5.1) mmol/L Carbon Dioxide 20 L (22-30) mmol/L BUN 6 L (7-17) mg/dL POC Glucose (mg/dL) 71 L (75-99) mg/dL Calcium 8.1 L (8.4-10.2) mg/dL Assessment and Plan Assessment: -Acute acetaminophen toxicity,. Status post Mucomyst. Level back to normal -Acute metabolic encephalopathy-slow to respond -Acute hepatitis from acetaminophen with slightly elevated LFTs and prolonged pro time -hyperkalemia -Hyponatremia -Alzheimer's dementia -Essential hypertension -Chronic urinary incontinence -Hyperlipidemia -Hyperglycemia, nondiabetic -DO NOT RESUSCITATE DVT Prophylaxis: lovenox GI prophylaxis: Pepcid prognosis is guarded
[2020-02-29 17:22] LABS: Glucose,Whole Blood 92 mg/dL (75-99)
--- NOTE | 2020-02-29 19:38 | P.PN ---
Subjective Progress Note Date: 02/29/20 Patient is laying comfortably in the bed. A sitter was present. Also spoke to the nurse. Patient's encephalopathy has much improved. Still slightly confused and disoriented. Patient possibly has some degree of underlying cognitive impairment. According to the nursing report, patient sometimes appears very mean, other times is more cooperative. When I examine, patient was very pleasant and cooperative. Denies headache at all. Objective - Vital Signs Vital signs: Vital Signs Temp 99.1 F 02/29/20 15:00 Pulse 74 02/29/20 15:00 Resp 12 02/29/20 15:00 BP 149/83 02/29/20 15:00 Pulse Ox 96 02/29/20 15:00 Intake & Output 02/29/20 02/29/20 03/01/20 06:59 18:59 06:59 Intake Total 1400 400 250 Output Total 1650 1750 200 Balance -250 -1350 50 Intake: IV 1300 400 250 Sodium Chloride 0.45% 1, 1300 400 250 000 ml @ 50 mls/hr IV . Q20H [facility] Rx#:[id number] Intake, IV Titration 100 Amount Potassium Chloride 10 meq 100 In Water For Injection 1 100ml.bag @ 100 mls/hr IVPB Q1HR [facility] Rx#: [id number] Output: Urine 1650 1750 200 Other: Voiding Method Indwelling Catheter Indwelling Catheter - Exam Patient is much more alert and awake. Laying comfortably in the bed. Patient states that she lives in [facility], could not tell what building she is in. Speech and language functions appears normal. Muscle strength appears fairly normal in the arms and legs. Reflexes are 1+ and plantars are withdrawal. Sensory touch is equal. - Labs CBC & Chem 7: 02/29/20 04:07 02/29/20 04:07 Labs: Abnormal Lab Results - Last 24 Hours (Table) 02/29/20 02/29/20 Range/Units 04:07 04:07 RBC 3.36 L (3.80-5.40) m/uL Hgb 10.9 L (11.4-16.0) gm/dL Hct 32.2 L (34.0-46.0) % Plt Count 124 L (150-450) k/uL Lymphocytes # 0.6 L (1.0-4.8) k/uL Sodium 135 L (137-145) mmol/L Potassium 3.0 L (3.5-5.1) mmol/L Carbon Dioxide 20 L (22-30) mmol/L BUN 6 L (7-17) mg/dL Calcium 8.1 L (8.4-10.2) mg/dL Assessment and Plan Assessment: * Altered mental status, likely related to toxic metabolic encephalopathy. * Tylenol overdose * Probable underlying Dementia Plan: * Patient's metabolic encephalopathy has almost resolved. Patient is somewhat pleasantly confused, likely due to her underlying dementia. Examination is nonfocal. Patient denies headaches or fever. Liver functions are almost close to normal. * EEG was performed, which revealed background disorganization and slowing consistent with encephalopathy. No epileptiform activity seen. * Your medical management. * Neurology will sign off. Please call neurology if you have any further concerns.
[2020-02-29 20:19] LABS: Glucose,Whole Blood 98 mg/dL (75-99)
[2020-02-29] MEDS: MIRTAZAPINE 15 MG TAB PO SCH (20:26)
[2020-03-01 04:27] LABS: Basophils % (A) 0 %; Eosinophils # (A) 0.1 k/uL (0-0.7); Eosinophils % (A) 3 %; HCT 34.3 % (34.0-46.0); HGB 11.5 gm/dL (11.4-16.0); Lymphocytes # (A) 0.7 k/uL (1.0-4.8); Lymphocytes % (A) 16 %; MCH 31.8 pg (25.0-35.0); MCHC 33.6 g/dL (31.0-37.0); MCV 94.8 fL (80.0-100.0); Mean Platelet Volume 8.7; Monocytes # (A) 0.3 k/uL (0-1.0); Monocytes % (A) 6 %; Neutrophils # (A) 3.2 k/uL (1.3-7.7); Neutrophils % (A) 72 %; Platelet Count 142 k/uL (150-450); RBC 3.61 m/uL (3.80-5.40); RDW 14.1 % (11.5-15.5); WBC 4.5 k/uL (3.8-10.6)
[2020-03-01 04:41] LABS: African American GFR (CKD) >90 (>60 ml/min/1.73 sqM); Anion Gap 6 mmol/L; Blood Urea Nitrogen 4 mg/dL (7-17); Calcium 8.6 mg/dL (8.4-10.2); Carbon Dioxide 30 mmol/L (22-30); Chloride 99 mmol/L (98-107); Glucose 91 mg/dL (74-99); Non-African American GFR(CKD) 82 (>60 ml/min/1.73 sqM); Potassium 2.9 mmol/L (3.5-5.1); Sodium 135 mmol/L (137-145)
[2020-03-01] MEDS: POTASSIUM CHLORIDE 10 MEQ in WATER FOR INJECTION 1 100ML.BAG IVPB SCH ×6 (05:59→14:04)
[2020-03-01] MEDS: SODIUM CHLORIDE 0.45% 1,000 ML IV SCH (05:59)
[2020-03-01] MEDS: INSULIN ASPART (NovoLOG) 100 UNIT/ML VIAL SQ SCH ×3 (06:00→21:20)
[2020-03-01] MEDS ORDERED: KETOROLAC 30 MG/ML 1 ML VIAL IVP PRN (06:41)
[2020-03-01] MEDS ORDERED: KETOROLAC 30 MG/ML 1 ML VIAL IVP SCH (06:45)
[2020-03-01] MEDS: PATIENT'S OWN MED (Mirabegron [Myrbetriq] 25 MG) PO SCH (08:45)
[2020-03-01] MEDS: POTASSIUM CHLORIDE ER 10 MEQ TAB.ER.PRT PO SCH (08:50)
[2020-03-01] MEDS: FAMOTIDINE 20 MG/2 ML VIAL IV SCH ×2 (08:51→22:06)
[2020-03-01] MEDS: METOPROLOL TARTRATE 12.5 MG TAB PO SCH ×2 (08:52→22:06)
[2020-03-01] MEDS: CHOLECALCIFEROL 1,000 UNIT TAB PO SCH (08:52)
[2020-03-01] MEDS: ENOXAPARIN 40 MG/0.4 ML SYRINGE SQ SCH (08:52)
[2020-03-01] MEDS: ASPIRIN 81 MG PO SCH (08:52)
[2020-03-01] MEDS: ATORVASTATIN 40 MG TAB PO SCH (08:52)
[2020-03-01] MEDS: DONEPEZIL 10 MG TAB PO SCH (08:53)
[2020-03-01 11:49] LABS: Glucose,Whole Blood 85 mg/dL (75-99)
--- NOTE | 2020-03-01 14:09 | P.PN ---
Subjective Progress Note Date: 03/01/20 This is an 89-year-old female patient who follows with Dr. Mcdonald as her primary care provider. She has a history of dementia, depression, hyperlipidemia, hypertension. She was brought into the emergency room on 02/24/2020 via EMS after developing altered mental status. Initial thoughts were of a CVA however computed tomography scan of the brain was negative for anything acute. Drug screen was positive for excessive levels of Tylenol in the bloodstream. Levels of 4004 draws. She had been receiving Mucomyst. She developed Atrial fibrillation. She's been hypertensive. . During the course of the treatment, the patient remained hemodynamically stable. Liver function tests remain within reasonable range and there was no significant hepatotoxicity developing from this acute Tylenol toxicity. Renal function also stayed stable with a creatinine being within normal range. The patient received IV fluids. She did have some disorientation and his speech was garbled. On today's evaluation there is improvement in her speech and she was able to answer questions appropriately without any focal neurological deficits. A repeat CAT scan of the brain was done and showed no acute cranial abnormalities. On today's evaluation of 03/01/2020, the patient is lethargic and confused. I was told the patient did not sleep throughout the night and the patient is more lethargic today this morning. She had minimal amount of oral intake earlier this morning. She has underlying dementia. No fever. No chills. No hemodynamic instability. No reported aspiration. Note that I had restarted her home medications including Remeron 50 mg at bedtime and Aricept 10 mg on a daily basis. Rest of the oral medications have been ordered resume. She is on half- normal saline today to 50 mL an hour. No nausea. No vomiting. No emesis. Potassium level is at 2.9 which is being replaced. She is confused. Her neurologic exam is nonfocal. Pulse ox 97% on room air. Objective - Vital Signs Vital signs: Vital Signs Temp 97.9 F 02/29/20 23:00 Pulse 98 03/01/20 08:00 Resp 16 03/01/20 08:00 BP 169/82 02/29/20 23:00 Pulse Ox 97 02/29/20 23:00 Intake & Output 02/29/20 03/01/20 03/01/20 18:59 06:59 18:59 Intake Total 400 1000 Output Total 1750 2400 Balance -1350 -1400 Intake: IV 400 1000 Sodium Chloride 0.45% 1, 400 1000 000 ml @ 50 mls/hr IV . Q20H [facility] Rx#:[id number] Output: Urine 1750 2400 Other: Voiding Method Indwelling Catheter Indwelling Catheter Indwelling Catheter - Exam GENERAL EXAM: The patient is confused and weak and lethargic frail 89-year-old female patient, on room air, comfortable in no apparent distress. HEAD: Normocephalic. EYES: Normal reaction of pupils, equal size. NOSE: Clear with pink turbinates. THROAT: No erythema or exudates. NECK: No masses, no JVD. CHEST: No chest wall deformity. LUNGS: Equal air entry with no crackles, wheeze, rhonchi or dullness. CVS: S1 and S2 normal with no audible murmur, regular rhythm. ABDOMEN: No hepatosplenomegaly, normal bowel sounds, no guarding or rigidity. SPINE: No scoliosis or deformity SKIN: No rashes, multiple areas of ecchymosis CENTRAL NERVOUS SYSTEM: No focal deficits, tone is normal in all 4 extremities. Confused and nonfocal neurological exam EXTREMITIES: There is no peripheral edema. No clubbing, no cyanosis. Peripheral pulses are - Labs CBC & Chem 7: 03/01/20 03:51 03/01/20 03:46 Labs: Abnormal Lab Results - Last 24 Hours (Table) 03/01/20 03/01/20 Range/Units 03:46 03:51 RBC 3.61 L (3.80-5.40) m/uL Plt Count 142 L (150-450) k/uL Lymphocytes # 0.7 L (1.0-4.8) k/uL Sodium 135 L (137-145) mmol/L Potassium 2.9 L (3.5-5.1) mmol/L BUN 4 L (7-17) mg/dL Assessment and Plan Plan: 1 acute Tylenol toxicity, treated with Mucomyst and the levels normalized 2 altered mental status, with CAT scan of the brain showing no acute abnormalities. Rule out delirium. Rule Out Underlying Metabolic Encephalopathy 3 History of dementia, likely of an Alzheimer's type 4 History of depression 5 History of hypertension 6 Hyperlipidemia 7 Hypokalemia, being replaced 8 Patient found on floor out of her recliner earlier this morning with right shoulder pain, no acute fractures. Computed tomography scan of the head no acute abnormality 9 Chronic urinary incontinence 10 DO NOT RESUSCITATE CODE STATUS plan Continue monitoring the mental status Patient is confused and has underlying the delirium Keep the patient ICU for now Neurology follow-up We'll follow
[2020-03-01 16:48] LABS: Glucose,Whole Blood 79 mg/dL (75-99)
[2020-03-01 20:38] LABS: Glucose,Whole Blood 86 mg/dL (75-99)
--- NOTE | 2020-03-01 21:13 | P.PN ---
Subjective This is a 89-year-old patient be followed by Dr. SAXENA. Patient has a known history of dementia and loop recorder in the chest, depression. Patient is brought into the ER. She lives at [facility]. She was last heard from a granddaughter Alesha who is her POA. She and her for the patient on 10 AM. And when the staff at the facility to the wellness check fundoplication with altered mental status. She was brought in initially for diagnoses of stroke. There was no localizing findings. Patient's found to have a critical acetaminop hen level. . 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 Has been very lethargic. Encephalopathic. Today-but more awake. Does not communicate much. Up in a chair. Did swallow some medications with applesauce. Blood pressure. High.started to come down. 02/27/2020 This is a pleasant 89 years old lady who presents with Tylenol overdose and alt ered mental status on the top of her dementia. Patient remains in the ICU. Patient has been evaluated by neurologist and he signed off. Her mentation is slightly improving today. She is hemodynamically stable Her Tylenol level came back to normal reference today after several doses of Mucomyst. Sodium 135, potassium 5.5, creatinine 0.7,. Liver enzymes slightly elevated and stable. pulmonary/critical care team on the case And they recommend to transfer pt to General medical floor 02/28/2020 Patient remains in the ICU, her mentation is improving gradually, today she is awake and alert. No her for some last name which is improvement compared to yesterday, she knows she is in her bed but she is disoriented to other per meters. This morning she was found on the floor on her face down, she complains from pain in her right shoulder, CT of the brain showed no hemorrhage, x-ray of the right shoulder and elbow were negative for fracture. Tylenol level already came back with a reference range. Rest of vitals stable, labs are stable as well. 02/29/2020 Patient is seen and examined in the ICU. She is getting more awake and answers questions easily but she is disoriented, looks like she is close to her baseline of dementia for example when asked where she is at she talks about a thief and catching a thief. However shows a pleasant and comfortable. Hemodynamically stable. She is able to finish about 25% of her meals Remains on gentle hydration with finger lactate but the dose was lowered to 50 mL per hour. She is considered for transfer to general medical floor 03/01/2020 Patient still in the ICU, she is smiling but confused, she talks about things not related to questions asked her. It looks like this is her baseline and her mentation looks to me similar to yesterday. Neurology think patient also confusion is related to her dementia and signed off the case. Sodium 135. Vitals are stable Review of systems CONSTITUTIONAL: No fever, no malaise, no fatigue. PULMONARY: No shortness of breath, no cough, no hemoptysis. GASTROINTESTINAL: No diarrhea, no nausea, no vomiting, no abdominal pain. Normoactive bowel sounds. NEUROLOGICAL: No headaches, no weakness, no numbness. GENITOURINARY: Denies any burning micturition, frequency, or urgency. MUSCULOSKELETAL/RHEUMATOLOGICAL: Denies any joint pain, swelling, or any muscle pain. Active Medications Generic Name Dose Route Start Last Admin Trade Name Nealq PRN Reason Stop Dose Admin Aspirin 81 mg 02/29/20 09:00 03/01/20 08:52 Aspirin PO 81 mg DAILY TRISTAN Administration Atorvastatin Calcium 40 mg 02/29/20 09:00 03/01/20 08:52 Lipitor PO 40 mg DAILY TRISTAN Administration Cholecalciferol 1,000 unit 02/29/20 09:00 03/01/20 08:52 Vitamin D3 (25 Mcg = 1000 Iu) PO 1,000 unit DAILY TRISTAN Administration Clonidine HCl 1 patch 02/26/20 02:00 02/26/20 02:15 Catapres-Tts 0.2mg Patch TRANSDERM 1 patch Q7D TRISTAN Administration Donepezil HCl 10 mg 02/29/20 09:00 03/01/20 08:53 Aricept PO 10 mg DAILY TRISTAN Administration Enoxaparin Sodium 40 mg 02/25/20 17:00 03/01/20 08:52 Lovenox SQ 40 mg DAILY TRISTAN Administration Famotidine 10 mg 02/27/20 21:00 03/01/20 08:51 Pepcid IV 10 mg Q12HR TRISTAN Administration Sodium Chloride 1,000 mls @ 50 mls/hr 02/27/20 11:30 03/01/20 05:59 Saline 0.45% IV 50 mls/hr .Q20H TRISTAN Administration Insulin Aspart 0 unit 02/29/20 07:30 03/01/20 12:30 Novolog SQ Not Given ACHS [facility] Protocol Ketorolac Tromethamine 15 mg 03/01/20 06:41 Toradol IVP 03/05/20 06:46 Q6HR PRN Mild to Moderate Pain Lorazepam 1 mg 02/25/20 04:31 02/29/20 23:31 Ativan IV 1 mg Q1H PRN Administration Anxiety Metoprolol Tartrate 12.5 mg 02/29/20 09:00 03/01/20 08:52 Lopressor PO 12.5 mg BID TRISTAN Administration Mirtazapine 15 mg 02/29/20 21:00 02/29/20 20:26 Remeron PO 15 mg HS TRISTAN Administration Miscellaneous Information 1 each 02/25/20 06:45 Potassium Per Protocol MISCELLANE DAILY PRN Per Protocol Protocol Miscellaneous Information 1 each 02/28/20 05:33 Potassium Per Protocol MISCELLANE DAILY PRN Per Protocol Protocol Naloxone HCl 0.2 mg 02/24/20 21:54 Narcan IV Q2M PRN Opioid Reversal Patient's Own Med ( 25 mg 02/29/20 09:00 03/01/20 08:45 Mirabegron [ PO Not Given Myrbetriq] 25 Mg) DAILY [facility] Potassium Chloride 10 meq 02/29/20 09:00 03/01/20 08:50 K-Dur 10 PO Not Given DAILY [facility] Objective - Vital Signs Vital signs: Vital Signs Temp 99.2 F 03/01/20 15:00 Pulse 98 03/01/20 16:00 Resp 15 03/01/20 16:00 BP 166/88 03/01/20 15:00 Pulse Ox 97 03/01/20 15:00 Intake & Output 03/01/20 03/01/20 03/02/20 06:59 18:59 06:59 Intake Total 1000 600 Output Total 2400 1300 Balance -1400 -700 Intake: IV 1000 600 Sodium Chloride 0.45% 1, 1000 600 000 ml @ 50 mls/hr IV . Q20H [facility] Rx#:[id number] Output: Urine 2400 1300 Other: Voiding Method Indwelling Catheter Indwelling Catheter - Exam -GENERAL: The patient is alert but confused HEENT: Pupils are round and equally reacting to light. EOMI. No scleral icterus. No conjunctival pallor. Normocephalic, atraumatic. No pharyngeal erythema. No thyromegaly. CARDIOVASCULAR: S1 and S2 present. No murmurs, rubs, or gallops. PULMONARY: Chest is clear to auscultation, no wheezing or crackles. ABDOMEN: Soft, nontender, nondistended, normoactive bowel sounds. No palpable organomegaly. MUSCULOSKELETAL: No joint swelling or deformity. EXTREMITIES: No cyanosis, clubbing, or pedal edema. NEUROLOGICAL: Gross neurological examination did not reveal any focal deficits. SKIN: No rashes. no petechiae. - Labs CBC & Chem 7: 03/01/20 03:51 03/01/20 03:46 Labs: Abnormal Lab Results - Last 24 Hours (Table) 03/01/20 03/01/20 Range/Units 03:46 03:51 RBC 3.61 L (3.80-5.40) m/uL Plt Count 142 L (150-450) k/uL Lymphocytes # 0.7 L (1.0-4.8) k/uL Sodium 135 L (137-145) mmol/L Potassium 2.9 L (3.5-5.1) mmol/L BUN 4 L (7-17) mg/dL Assessment and Plan Assessment: -Acute acetaminophen toxicity,. Status post Mucomyst. Level back to normal -Acute metabolic encephalopathy-slow to respond -Acute hepatitis from acetaminophen with slightly elevated LFTs and prolonged pro time -hyperkalemia -Hyponatremia -Alzheimer's dementia -Essential hypertension -Chronic urinary incontinence -Hyperlipidemia -Hyperglycemia, nondiabetic -DO NOT RESUSCITATE DVT Prophylaxis: lovenox GI prophylaxis: Pepcid prognosis is guarded
[2020-03-01] MEDS: MIRTAZAPINE 15 MG TAB PO SCH (22:06)
[2020-03-01 22:47] LABS: Calcium 8.5 mg/dL (8.4-10.2); Potassium 3.8 mmol/L (3.5-5.1)
[2020-03-02 06:39] LABS: Glucose,Whole Blood 97 mg/dL (75-99)
[2020-03-02] MEDS: INSULIN ASPART (NovoLOG) 100 UNIT/ML VIAL SQ SCH ×4 (06:40→20:59)
[2020-03-02] MEDS: SODIUM CHLORIDE 0.45% 1,000 ML IV SCH (07:00)
[2020-03-02] MEDS: FAMOTIDINE 20 MG/2 ML VIAL IV SCH (08:45)
[2020-03-02] MEDS: CHOLECALCIFEROL 1,000 UNIT TAB PO SCH (08:45)
[2020-03-02] MEDS: ASPIRIN 81 MG PO SCH (08:45)
[2020-03-02] MEDS: ENOXAPARIN 40 MG/0.4 ML SYRINGE SQ SCH (08:45)
[2020-03-02] MEDS: POTASSIUM CHLORIDE ER 10 MEQ TAB.ER.PRT PO SCH (08:45)
[2020-03-02] MEDS: METOPROLOL TARTRATE 12.5 MG TAB PO SCH ×2 (08:45→22:15)
[2020-03-02] MEDS: ATORVASTATIN 40 MG TAB PO SCH (08:45)
[2020-03-02] MEDS: PATIENT'S OWN MED (Mirabegron [Myrbetriq] 25 MG) PO SCH (08:46)
[2020-03-02] MEDS: DONEPEZIL 10 MG TAB PO SCH (08:47)
[2020-03-02 10:43] VITALS: BMI 25.1
[2020-03-02 12:36] LABS: Glucose,Whole Blood 108 mg/dL (75-99)
[2020-03-02] MEDS ORDERED: HALOPERIDOL LACTATE 5 MG/ML 1 ML VIAL IVP ONE (12:47)
--- NOTE | 2020-03-02 13:28 | P.PN ---
Subjective Progress Note Date: 03/02/20 This is an 89-year-old female patient who follows with Dr. Mcdonald as her primary care provider. She has a history of dementia, depression, hyperlipidemia, hypertension. She was brought into the emergency room on 02/24/2020 via EMS after developing altered mental status. Initial thoughts were of a CVA however computed tomography scan of the brain was negative for anything acute. Drug screen was positive for excessive levels of Tylenol in the bloodstream. Levels of 4004 draws. She had been receiving Mucomyst. She developed Atrial fibrillation. She's been hypertensive. . During the course of the treatment, the patient remained hemodynamically stable. Liver function tests remain within reasonable range and there was no significant hepatotoxicity developing from this acute Tylenol toxicity. Renal function also stayed stable with a creatinine being within normal range. The patient received IV fluids. She did have some disorientation and his speech was garbled. On today's evaluation there is improvement in her speech and she was able to answer questions appropriately without any focal neurological deficits. A repeat CAT scan of the brain was done and showed no acute cranial abnormalities. On today's evaluation of 03/01/2020, the patient is lethargic and confused. I was told the patient did not sleep throughout the night and the patient is more lethargic today this morning. She had minimal amount of oral intake earlier this morning. She has underlying dementia. No fever. No chills. No hemodynamic instability. No reported aspiration. Note that I had restarted her home medications including Remeron 50 mg at bedtime and Aricept 10 mg on a daily basis. Rest of the oral medications have been ordered resume. She is on half- normal saline today to 50 mL an hour. No nausea. No vomiting. No emesis. Potassium level is at 2.9 which is being replaced. She is confused. Her neurologic exam is nonfocal. Pulse ox 97% on room air. On 03/05/2020, the patient is much more alert and awake compared to yesterday. Nevertheless, still confused. She communicates. She is not fully appropriate and she is not oriented to time and place. She has no other complaints otherwise. She is able to tolerate some oral intake although the oral intake is quite diminished and she is eating only 20-30% of the food offered to her. No hemodynamic instability. No fever. No chills. No focal neurological deficits. No other significant events overnight. Objective - Vital Signs Vital signs: Vital Signs Temp 99.0 F 03/02/20 07:00 Pulse 85 03/02/20 07:00 Resp 18 03/02/20 07:00 BP 165/90 03/02/20 07:00 Pulse Ox 94 L 03/02/20 07:00 Intake & Output 03/01/20 03/02/20 03/02/20 18:59 06:59 18:59 Intake Total 600 550 Output Total 1300 360 Balance -700 190 Weight 64.3 kg 64.3 kg Intake: IV 600 550 Sodium Chloride 0.45% 1, 600 550 000 ml @ 50 mls/hr IV . Q20H [facility] Rx#:[id number] Output: Urine 1300 360 Other: Voiding Method Indwelling Catheter Indwelling Catheter Indwelling Catheter - Exam GENERAL EXAM: The patient is confused and weak and lethargic frail 89-year-old female patient, on room air, comfortable in no apparent distress. Overall, the patient looks to be much more awake compared to yesterday. HEAD: Normocephalic. EYES: Normal reaction of pupils, equal size. NOSE: Clear with pink turbinates. THROAT: No erythema or exudates. NECK: No masses, no JVD. CHEST: No chest wall deformity. LUNGS: Equal air entry with no crackles, wheeze, rhonchi or dullness. CVS: S1 and S2 normal with no audible murmur, regular rhythm. ABDOMEN: No hepatosplenomegaly, normal bowel sounds, no guarding or rigidity. SPINE: No scoliosis or deformity SKIN: No rashes, multiple areas of ecchymosis CENTRAL NERVOUS SYSTEM: No focal deficits, tone is normal in all 4 extremities. Confused and nonfocal neurological exam EXTREMITIES: There is no peripheral edema. No clubbing, no cyanosis. Peripheral pulses are - Labs CBC & Chem 7: 03/01/20 03:51 03/01/20 22:14 Labs: Abnormal Lab Results - Last 24 Hours (Table) 03/01/20 03/02/20 Range/Units 22:14 12:34 Sodium 133 L (137-145) mmol/L POC Glucose (mg/dL) 108 H (75-99) mg/dL Assessment and Plan Plan: 1 acute Tylenol toxicity, treated with Mucomyst and the levels normalized 2 altered mental status, with CAT scan of the brain showing no acute abnormalities. Rule out delirium. Rule Out Underlying Metabolic Encephalopathy. The patient seems in much more alert compared to yesterday. She remains quite confused. 3 History of dementia, likely of an Alzheimer's type 4 History of depression 5 History of hypertension 6 Hyperlipidemia 7 Hypokalemia, being replaced 8 Patient found on floor out of her recliner earlier this morning with right shoulder pain, no acute fractures. Computed tomography scan of the head no acute abnormality 9 Chronic urinary incontinence 10 DO NOT RESUSCITATE CODE STATUS plan Continue monitoring the mental status Give Haldol for any agitation or delirium. Neurology follow-up. Keep the sitter at the bedside. Patient is confused and has underlying the delirium Keep the patient ICU for now Neurology follow-up We'll follow
[2020-03-02] MEDS ORDERED: hydrALAZINE HCL 20 MG/ML 1 ML VIAL IVP PRN (13:57)
[2020-03-02 17:15] LABS: Glucose,Whole Blood 103 mg/dL (75-99)
[2020-03-02 20:37] LABS: Glucose,Whole Blood 91 mg/dL (75-99)
[2020-03-02] MEDS ORDERED: DEXTROSE 5%-0.45% NACL 1,000 ML IV SCH (21:45)
--- NOTE | 2020-03-02 21:50 | P.PN ---
Subjective This is a 89-year-old patient be followed by Dr. SAXENA. Patient has a known history of dementia and loop recorder in the chest, depression. Patient is brought into the ER. She lives at [facility]. She was last heard from a granddaughter Alesha who is her POA. She and her for the patient on 10 AM. And when the staff at the facility to the wellness check fundoplication with altered mental status. She was brought in initially for diagnoses of stroke. There was no localizing findings. Patient's found to have a critical acetaminop hen level. . 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 Has been very lethargic. Encephalopathic. Today-but more awake. Does not communicate much. Up in a chair. Did swallow some medications with applesauce. Blood pressure. High.started to come down. 02/27/2020 This is a pleasant 89 years old lady who presents with Tylenol overdose and alt ered mental status on the top of her dementia. Patient remains in the ICU. Patient has been evaluated by neurologist and he signed off. Her mentation is slightly improving today. She is hemodynamically stable Her Tylenol level came back to normal reference today after several doses of Mucomyst. Sodium 135, potassium 5.5, creatinine 0.7,. Liver enzymes slightly elevated and stable. pulmonary/critical care team on the case And they recommend to transfer pt to General medical floor 02/28/2020 Patient remains in the ICU, her mentation is improving gradually, today she is awake and alert. No her for some last name which is improvement compared to yesterday, she knows she is in her bed but she is disoriented to other per meters. This morning she was found on the floor on her face down, she complains from pain in her right shoulder, CT of the brain showed no hemorrhage, x-ray of the right shoulder and elbow were negative for fracture. Tylenol level already came back with a reference range. Rest of vitals stable, labs are stable as well. 02/29/2020 Patient is seen and examined in the ICU. She is getting more awake and answers questions easily but she is disoriented, looks like she is close to her baseline of dementia for example when asked where she is at she talks about a thief and catching a thief. However shows a pleasant and comfortable. Hemodynamically stable. She is able to finish about 25% of her meals Remains on gentle hydration with finger lactate but the dose was lowered to 50 mL per hour. She is considered for transfer to general medical floor 03/01/2020 Patient still in the ICU, she is smiling but confused, she talks about things not related to questions asked her. It looks like this is her baseline and her mentation looks to me similar to yesterday. Neurology think patient also confusion is related to her dementia and signed off the case. Sodium 135. Vitals are stable 03/02/2020 Patient in the ICU, she remains confused which looks like baseline and related to her dementia. She obeys commands. She is generally weak. However she got agitated today and needed IV Haldol. After that she was sleeping. Sitter at bedside for safety and helped her back to bed. She is not eating well and at times she refuses. Patient did not have bowel movement for 5 days. We going to order abdominal x-ray for possible fecal impaction, although the patient is not eaten well which might contribute to it. Also will check urinalysis and bladder scan. Her blood pressure was elevated with systolic in 190-200, intravenous hydrolyzing is provided and her blood pressure is better controlled. Chest small blisters and sore at the lower back about 2 x 2 centimeter, superficial. We'll order a topical treatment with silver sulfadiazine We'll change her fluids from half-normal saline at 50 mL per hour to D5 half- normal saline at 50 mL per hour. Check labs in the morning Review of systems: n/a Patient could not provide information due to her confusion and sleepiness Active Medications Generic Name Dose Route Start Last Admin Trade Name Jing PRN Reason Stop Dose Admin Aspirin 81 mg 02/29/20 09:00 03/02/20 08:45 Aspirin PO 81 mg DAILY TRISTAN Administration Atorvastatin Calcium 40 mg 02/29/20 09:00 03/02/20 08:45 Lipitor PO 40 mg DAILY TRISTAN Administration Cholecalciferol 1,000 unit 02/29/20 09:00 03/02/20 08:45 Vitamin D3 (25 Mcg = 1000 Iu) PO 1,000 unit DAILY TRISTAN Administration Clonidine HCl 1 patch 02/26/20 02:00 02/26/20 02:15 Catapres-Tts 0.2mg Patch TRANSDERM 1 patch Q7D TRISTAN Administration Donepezil HCl 10 mg 02/29/20 09:00 03/02/20 08:47 Aricept PO 10 mg DAILY TRISTAN Administration Enoxaparin Sodium 40 mg 02/25/20 17:00 03/02/20 08:45 Lovenox SQ 40 mg DAILY TRISTAN Administration Famotidine 20 mg 03/03/20 09:00 Pepcid PO DAILY TRISTAN Hydralazine HCl 5 mg 03/02/20 13:57 03/02/20 16:48 Apresoline IVP 5 mg Q6HR PRN Administration Blood Pressure - High Sodium Chloride 1,000 mls @ 50 mls/hr 02/27/20 11:30 03/02/20 07:00 Saline 0.45% IV 50 mls/hr .Q20H TRISTAN Administration Insulin Aspart 0 unit 02/29/20 07:30 03/02/20 20:59 Novolog SQ Not Given ACHS [facility] Protocol Ketorolac Tromethamine 15 mg 03/01/20 06:41 Toradol IVP 03/05/20 06:46 Q6HR PRN Mild to Moderate Pain Metoprolol Tartrate 12.5 mg 02/29/20 09:00 03/02/20 08:45 Lopressor PO 12.5 mg BID TRISTAN Administration Mirtazapine 15 mg 02/29/20 21:00 03/01/20 22:06 Remeron PO 15 mg HS TRISTAN Administration Miscellaneous Information 1 each 02/25/20 06:45 Potassium Per Protocol MISCELLANE DAILY PRN Per Protocol Protocol Miscellaneous Information 1 each 02/28/20 05:33 Potassium Per Protocol MISCELLANE DAILY PRN Per Protocol Protocol Naloxone HCl 0.2 mg 02/24/20 21:54 Narcan IV Q2M PRN Opioid Reversal Patient's Own Med ( 25 mg 02/29/20 09:00 03/02/20 08:46 Mirabegron [ PO Not Given Myrbetriq] 25 Mg) DAILY TRISTAN Potassium Chloride 10 meq 02/29/20 09:00 03/02/20 08:45 K-Dur 10 PO 10 meq DAILY TRISTAN Administration Objective - Vital Signs Vital signs: Vital Signs Temp 99.0 F 03/02/20 07:00 Pulse 85 03/02/20 07:00 Resp 18 03/02/20 07:00 BP 165/90 03/02/20 07:00 Pulse Ox 94 L 03/02/20 07:00 Intake & Output 03/01/20 03/02/20 03/02/20 18:59 06:59 18:59 Intake Total 600 550 400 Output Total 1300 360 400 Balance -700 190 0 Weight 64.3 kg 64.3 kg Intake: IV 600 550 400 Sodium Chloride 0.45% 1, 600 550 400 000 ml @ 50 mls/hr IV . Q20H [facility] Rx#:[id number] Output: Urine 1300 360 400 Other: Voiding Method Indwelling Catheter Indwelling Catheter Indwelling Catheter - Exam -GENERAL: The patient is alert but confused HEENT: Pupils are round and equally reacting to light. EOMI. No scleral icterus. No conjunctival pallor. Normocephalic, atraumatic. No pharyngeal erythema. No thyromegaly. CARDIOVASCULAR: S1 and S2 present. No murmurs, rubs, or gallops. PULMONARY: Chest is clear to auscultation, no wheezing or crackles. ABDOMEN: Soft, nontender, nondistended, normoactive bowel sounds. No palpable organomegaly. MUSCULOSKELETAL: No joint swelling or deformity. EXTREMITIES: No cyanosis, clubbing, or pedal edema. NEUROLOGICAL: Gross neurological examination did not reveal any focal deficits. SKIN: No rashes. no petechiae. - Labs CBC & Chem 7: 03/01/20 03:51 03/01/20 22:14 Labs: Abnormal Lab Results - Last 24 Hours (Table) 03/01/20 03/02/20 Range/Units 22:14 12:34 Sodium 133 L (137-145) mmol/L POC Glucose (mg/dL) 108 H (75-99) mg/dL Assessment and Plan Assessment: -Confusion, mostly related to metabolic encephalopathy which is improving on top of her dementia with behavioral disturbance, continue with the Haldol as needed. Check abdominal x-ray and UA. -Acute acetaminophen toxicity,. Status post Mucomyst. Level back to normal -Small pressure ulcer in the lower back, about 2 x 2 cm. Superficial . Continue with topical treatment -Acute metabolic encephalopathy-slow to respond -poor appetite, dietitian consult with encouraging patient to eat. Continue with D5 half-normal saline at 50 mL per hour -Acute hepatitis from acetaminophen with slightly elevated LFTs -Hyponatremia, mild -Alzheimer's dementia -Essential hypertension, uncontrolled -Chronic urinary incontinence -Hyperlipidemia -Hyperglycemia, nondiabetic -DO NOT RESUSCITATE DVT Prophylaxis: lovenox GI prophylaxis: Pepcid prognosis is guarded
[2020-03-02] MEDS: MIRTAZAPINE 15 MG TAB PO SCH (22:15)
--- NOTE | 2020-03-02 22:26 | XR ---
EXAMINATION TYPE: XR KUB portable DATE OF EXAM: 03/02/2020 COMPARISON: NONE HISTORY: Constipation TECHNIQUE: 3 views FINDINGS: 3 views were obtained supine. There is no sign of intestinal obstruction or pneumoperitoneu m. Fecal pattern is normal. There are no pathologic calcifications over the kidneys. Lung bases are c lear of consolidation. There is minimal atelectasis left lung base. IMPRESSION: Nonacute abdomen. Mild atelectasis left lung base.
[2020-03-03 00:43] LABS: Appearance,Urine Turbid (Clear); Bacteria,Urine Rare /hpf; Bilirubin,Urine Negative (Negative); Blood,Urine Small (Negative); Color,Urine Yellow; Glucose,Urine (UA) Negative (Negative); Ketones,Urine 2+ (Negative); Leukocyte Esterase,Urine Large (Negative); Mucus,Urine Few /hpf; Nitrite,Urine Positive (Negative); PH, Urine 5.5 (5.0-8.0); Protein,Urine 1+ (Negative); RBC,Urine 17 /hpf (0-5); Specific Gravity,Urine 1.015 (1.001-1.035); Squamous Epithelial Cell,Urine 1 /hpf (0-4); Urobilinogen,Urine <2.0 mg/dL (<2.0); WBC,Urine >182 /hpf (0-5)
[2020-03-03 06:00] LABS: Basophils % (A) 1 %; Eosinophils # (A) 0.1 k/uL (0-0.7); Eosinophils % (A) 2 %; HCT 34.8 % (34.0-46.0); HGB 11.8 gm/dL (11.4-16.0); Lymphocytes # (A) 0.6 k/uL (1.0-4.8); Lymphocytes % (A) 11 %; MCH 32.6 pg (25.0-35.0); MCV 95.9 fL (80.0-100.0); Mean Platelet Volume 8.4; Monocytes # (A) 0.4 k/uL (0-1.0); Monocytes % (A) 8 %; Neutrophils # (A) 4.4 k/uL (1.3-7.7); Neutrophils % (A) 77 %; Platelet Count 203 k/uL (150-450); RBC 3.63 m/uL (3.80-5.40); RDW 14.3 % (11.5-15.5); WBC 5.8 k/uL (3.8-10.6)
[2020-03-03] MEDS: INSULIN ASPART (NovoLOG) 100 UNIT/ML VIAL SQ SCH ×2 (06:22→12:08)
[2020-03-03 06:23] LABS: Glucose,Whole Blood 116 mg/dL (75-99)
[2020-03-03 06:29] LABS: African American GFR (CKD) >90 (>60 ml/min/1.73 sqM); Anion Gap 6 mmol/L; Blood Urea Nitrogen 9 mg/dL (7-17); Calcium 8.9 mg/dL (8.4-10.2); Carbon Dioxide 26 mmol/L (22-30); Chloride 102 mmol/L (98-107); Glucose 123 mg/dL (74-99); Non-African American GFR(CKD) 82 (>60 ml/min/1.73 sqM); Potassium 3.3 mmol/L (3.5-5.1); Sodium 134 mmol/L (137-145)
[2020-03-03] MEDS: POTASSIUM BICARBONATE/CIT AC 20 MEQ TABLET.EFF NG-TUBE SCH ×2 (06:45→08:57)
[2020-03-03] MEDS: FAMOTIDINE 20 MG TAB PO SCH (08:57)
[2020-03-03] MEDS: POTASSIUM CHLORIDE ER 10 MEQ TAB.ER.PRT PO SCH (08:57)
[2020-03-03] MEDS: ATORVASTATIN 40 MG TAB PO SCH (08:57)
[2020-03-03] MEDS: DONEPEZIL 10 MG TAB PO SCH (08:58)
[2020-03-03] MEDS: METOPROLOL TARTRATE 12.5 MG TAB PO SCH (08:58)
[2020-03-03] MEDS: ASPIRIN 81 MG PO SCH (08:58)
[2020-03-03] MEDS: ENOXAPARIN 40 MG/0.4 ML SYRINGE SQ SCH (08:58)
[2020-03-03] MEDS: CHOLECALCIFEROL 1,000 UNIT TAB PO SCH (08:58)
[2020-03-03] MEDS: PATIENT'S OWN MED (Mirabegron [Myrbetriq] 25 MG) PO SCH (08:59)
[2020-03-03 11:54] LABS: Glucose,Whole Blood 116 mg/dL (75-99)
--- NOTE | 2020-03-03 13:01 | P.PN ---
Subjective Progress Note Date: 03/03/20 This is an 89-year-old female patient who follows with Dr. Mcdonald as her primary care provider. She has a history of dementia, depression, hyperlipidemia, hypertension. She was brought into the emergency room on 02/24/2020 via EMS after developing altered mental status. Initial thoughts were of a CVA however computed tomography scan of the brain was negative for anything acute. Drug screen was positive for excessive levels of Tylenol in the bloodstream. Levels of 4004 draws. She had been receiving Mucomyst. She developed Atrial fibrillation. She's been hypertensive. . During the course of the treatment, the patient remained hemodynamically stable. Liver function tests remain within reasonable range and there was no significant hepatotoxicity developing from this acute Tylenol toxicity. Renal function also stayed stable with a creatinine being within normal range. The patient received IV fluids. She did have some disorientation and his speech was garbled. On today's evaluation there is improvement in her speech and she was able to answer questions appropriately without any focal neurological deficits. A repeat CAT scan of the brain was done and showed no acute cranial abnormalities. On today's evaluation of 03/01/2020, the patient is lethargic and confused. I was told the patient did not sleep throughout the night and the patient is more lethargic today this morning. She had minimal amount of oral intake earlier this morning. She has underlying dementia. No fever. No chills. No hemodynamic instability. No reported aspiration. Note that I had restarted her home medications including Remeron 50 mg at bedtime and Aricept 10 mg on a daily basis. Rest of the oral medications have been ordered resume. She is on half- normal saline today to 50 mL an hour. No nausea. No vomiting. No emesis. Potassium level is at 2.9 which is being replaced. She is confused. Her neurologic exam is nonfocal. Pulse ox 97% on room air. On 03/02/2020, the patient is much more alert and awake compared to yesterday. Nevertheless, still confused. She communicates. She is not fully appropriate and she is not oriented to time and place. She has no other complaints otherwise. She is able to tolerate some oral intake although the oral intake is quite diminished and she is eating only 20-30% of the food offered to her. No hemodynamic instability. No fever. No chills. No focal neurological deficits. No other significant events overnight. On 03/03/2020, the patient is pleasantly confused. The patient has no specific complaints. She is resting comfortably in bed. She is taking her oral intake in diet. No nausea. No vomiting. Abdominal pain. No fever. No chills. UA was abnormal. Urine cultures of been negative and the patient was given IV R ocephin as an empiric antibiotic coverage. This could be potentially affecting her mental status and was decided to cover her for possible UTI. She is a selective overflow. Objective - Vital Signs Vital signs: Vital Signs Temp 97.9 F 03/03/20 06:18 Pulse 75 03/03/20 06:18 Resp 16 03/03/20 06:18 BP 168/78 03/03/20 06:18 Pulse Ox 95 03/03/20 06:18 Intake & Output 03/02/20 03/03/20 03/03/20 18:59 06:59 18:59 Intake Total 400 450 Output Total 400 630 Balance 0 -180 Weight 64.3 kg Intake: IV 400 450 Sodium Chloride 0.45% 1, 400 450 000 ml @ 50 mls/hr IV . Q20H [facility] Rx#:[id number] Output: Urine 400 630 Other: Voiding Method Indwelling Catheter Indwelling Catheter - Exam GENERAL EXAM: The patient is confused and weak and lethargic frail 89-year-old female patient, on room air, comfortable in no apparent distress. Overall, the patient looks to be much more awake and she's also communicating. HEAD: Normocephalic. EYES: Normal reaction of pupils, equal size. NOSE: Clear with pink turbinates. THROAT: No erythema or exudates. NECK: No masses, no JVD. CHEST: No chest wall deformity. LUNGS: Equal air entry with no crackles, wheeze, rhonchi or dullness. CVS: S1 and S2 normal with no audible murmur, regular rhythm. ABDOMEN: No hepatosplenomegaly, normal bowel sounds, no guarding or rigidity. SPINE: No scoliosis or deformity SKIN: No rashes, multiple areas of ecchymosis CENTRAL NERVOUS SYSTEM: No focal deficits, tone is normal in all 4 extremities. Confused and nonfocal neurological exam EXTREMITIES: There is no peripheral edema. No clubbing, no cyanosis. Jackie pheral pulses are - Labs CBC & Chem 7: 03/03/20 05:30 03/03/20 05:30 Labs: Abnormal Lab Results - Last 24 Hours (Table) 03/02/20 03/02/20 03/03/20 Range/Units 17:13 23:40 05:30 RBC 3.63 L (3.80-5.40) m/uL Lymphocytes # 0.6 L (1.0-4.8) k/uL Sodium (137-145) mmol/L Potassium (3.5-5.1) mmol/L Glucose (74-99) mg/dL POC Glucose (mg/dL) 103 H (75-99) mg/dL Urine Appearance Turbid H (Clear) Urine Protein 1+ H (Negative) Urine Ketones 2+ H (Negative) Urine Blood Small H (Negative) Urine Nitrite Positive H (Negative) Ur Leukocyte Esterase Large H (Negative) Urine RBC 17 H (0-5) /hpf Urine WBC >182 H (0-5) /hpf Urine WBC Clumps Many H (None) /hpf Urine Bacteria Rare H (None) /hpf Urine Mucus Few H (None) /hpf 03/03/20 03/03/20 03/03/20 Range/Units 05:30 06:21 11:52 RBC (3.80-5.40) m/uL Lymphocytes # (1.0-4.8) k/uL Sodium 134 L (137-145) mmol/L Potassium 3.3 L (3.5-5.1) mmol/L Glucose 123 H (74-99) mg/dL POC Glucose (mg/dL) 116 H 116 H (75-99) mg/dL Urine Appearance (Clear) Urine Protein (Negative) Urine Ketones (Negative) Urine Blood (Negative) Urine Nitrite (Negative) Ur Leukocyte Esterase (Negative) Urine RBC (0-5) /hpf Urine WBC (0-5) /hpf Urine WBC Clumps (None) /hpf Urine Bacteria (None) /hpf Urine Mucus (None) /hpf Microbiology - Last 24 Hours (Table) 03/02/20 23:40 Urine Culture - Preliminary Urine,Voided Assessment and Plan Plan: 1 acute Tylenol toxicity, treated with Mucomyst and the levels normalized 2 altered mental status, with CAT scan of the brain showing no acute abnormalities. Rule out delirium. Rule Out Underlying Metabolic Encephalopathy. The patient seems in much more alert and she remains pleasantly confused. 3 History of dementia, likely of an Alzheimer's type 4 History of depression 5 History of hypertension 6 Hyperlipidemia 7 Hypokalemia, being replaced 8 Patient found on floor out of her recliner earlier this morning with right shoulder pain, no acute fractures. Computed tomography scan of the head no acute abnormality 9 Chronic urinary incontinence, with a suspected UTI and currently the patient is on IV Rocephin 10 DO NOT RESUSCITATE CODE STATUS plan Continue monitoring the mental status Give Haldol for any agitation or delirium. Neurology follow-up. Keep the sitter at the bedside. Patient is confused and has underlying the delirium. No agitation. No restlessness. Transfer this patient out of the intensive care unit. Advance diet as tolerated IV Rocephin for suspected UTI Neurology follow-up We'll follow
--- NOTE | 2020-03-03 15:56 | P.PN ---
Progress Note - Text Progress Note Date: 03/03/20 Chief Complaint: Found unconscious History of presenting complaint: This is a 89-year-old patient be followed by Dr. SAXENA. Patient has a known history of dementia and loop recorder in the chest, depression. Patient is brought into the ER. She lives at [facility]. She was last heard from a granddaughter Alesha who is her POA. She and her for the patient on 10 AM. And when the staff at the facility to the wellness check fundoplication with altered mental status. She was brought in initially for diagnoses of stroke. There was no localizing findings. Patient's found to have a critical acetaminophen level. . admitted with-possibly acute on chronic acetaminophen toxicity.received IV Mucomyst. Encephalopathic. Today-ICU. Sitting upon a chair. Has a sitter. Eating about 25%. Though bit slow. Denies any pain. As per the sitter patient is more oriented today. Answering simple questions. Review of systems: attempted for constitutional, cardiovascular, GI, pulmonary. relevant finding as above Active Medications Aspirin (Aspirin) 81 mg PO DAILY [facility] Last Admin: 03/03/20 08:58 Dose: 81 mg Documented by: Atorvastatin Calcium (Lipitor) 40 mg PO DAILY [facility] Last Admin: 03/03/20 08:57 Dose: 40 mg Documented by: Cholecalciferol (Vitamin D3 (25 Mcg = 1000 Iu)) 1,000 unit PO DAILY [facility] Last Admin: 03/03/20 08:58 Dose: 1,000 unit Documented by: Clonidine HCl (Catapres-Tts 0.2mg Patch) 1 patch TRANSDERM Q7D [facility] Stop: 03/03/20 20:00 Last Admin: 02/26/20 02:15 Dose: 1 patch Documented by: Donepezil HCl (Aricept) 10 mg PO DAILY [facility] Last Admin: 03/03/20 08:58 Dose: 10 mg Documented by: Enoxaparin Sodium (Lovenox) 40 mg SQ DAILY [facility] Last Admin: 03/03/20 08:58 Dose: 40 mg Documented by: Famotidine (Pepcid) 20 mg PO DAILY [facility] Last Admin: 03/03/20 08:57 Dose: 20 mg Documented by: Hydralazine HCl (Apresoline) 5 mg IVP Q6HR PRN PRN Reason: Blood Pressure - High Last Admin: 03/02/20 16:48 Dose: 5 mg Documented by: Ceftriaxone Sodium 1 gm/ (Sodium Chloride) 50 mls @ 100 mls/hr IVPB Q24HR [facility] Ketorolac Tromethamine (Toradol) 15 mg IVP Q6HR PRN PRN Reason: Mild to Moderate Pain Stop: 03/05/20 06:46 Metoprolol Tartrate (Lopressor) 50 mg PO BID [facility] Mirtazapine (Remeron) 15 mg PO HS [facility] Last Admin: 03/02/20 22:15 Dose: 15 mg Documented by: Miscellaneous Information (Potassium Per Protocol) 1 each MISCELLANE DAILY PRN; Protocol PRN Reason: Per Protocol Miscellaneous Information (Potassium Per Protocol) 1 each MISCELLANE DAILY PRN; Protocol PRN Reason: Per Protocol Naloxone HCl (Narcan) 0.2 mg IV Q2M PRN PRN Reason: Opioid Reversal Patient's Own Med ( Mirabegron [ Myrbetriq] 25 Mg) 25 mg PO DAILY [facility] Last Admin: 03/03/20 08:59 Dose: Not Given Documented by: Potassium Chloride (K-Dur 10) 10 meq PO DAILY [facility] Last Admin: 03/03/20 08:57 Dose: 10 meq Documented by: Silver Sulfadiazine (Silvadene Cream) 1 applic TOPICAL BID [facility] Last Admin: 03/03/20 08:59 Dose: 1 applic Documented by: Physical examination: VITAL SIGNS: 97.9, 75, 16, 160-78, 95% on room air GENERAL: sitting up in a chair,eating slowly, tired EYES: Pupils equal. Conjunctiva normal. HEENT: External appearance of nose and ears normal, oral cavity grossly normal. NECK: JVD not raised; masses not palpable. HEART: First and second heart sounds are normal; no edema. LUNGS: Respiratory rate normal; clear to auscultation. ABDOMEN: Soft, nontender, liver spleen not palpable, no masses palpable. PSYCH:tired but he would answer some simple questions NEUROLOGICAL: moving her limbs. INVESTIGATIONS, reviewed in the clinical context: white count 5.8 hemoglobin 11.8 progression 3.3 creatinine 0.58 UA positive Previous testing White count 9 hemoglobin 13.2 platelets 190 potassium 3.5 creatinine 0.63 Albumin 3.4 Acetaminophen more than 400 serum alcohol less than 10 salicylate 7.9 COVID-19 PCR-not detected EKG tracing personally reviewed by me-sinus rhythm with some ST segment changes Chest x-ray film personally reviewed by me-questionable infiltrate on the right side Computed tomography scan of the brain-age related atrophy Assessment: -Acute acetaminophen toxicity, possibly [id number]. patient is received IV Mucomyst., POA -Acute hepatic encephalopathy-slowly improving -Acute hepatitis from acetaminophen with slightly elevated LFTs and prolonged pro time -Severe hypokalemia-replaced -Hyponatremia -Late onset Alzheimer's dementia -Essential hypertension -Chronic urinary incontinence -Hyperlipidemia -Hyperglycemia, nondiabetic -DO NOT RESUSCITATE Plan: patient's currently getting IV ceftriaxone. She is mentally slowly started to clear up.U4 patient go to the ECF. Oral intake encouraged. We'll DC the Catapres patch to evening dose of Lopressor to be increased.
[2020-03-03 16:43] LABS: Glucose,Whole Blood 114 mg/dL (75-99)
--- NOTE | 2020-03-03 19:51 | P.PN ---
Subjective Progress Note Date: 03/03/20 Patient is laying comfortably in the bed. A sitter was present. Also spoke to the nurse. Patient's encephalopathy has much improved. Still slightly confused and disoriented, delirious. Patient does have some degree of underlying cognitive impairment but appears much worse than her baseline level of f unctioning. Patient does admit to having headache.. Denies chest pain. Objective - Vital Signs Vital signs: Vital Signs Temp 97.9 F 03/03/20 06:18 Pulse 75 03/03/20 06:18 Resp 16 03/03/20 06:18 BP 168/78 03/03/20 06:18 Pulse Ox 95 03/03/20 06:18 Intake & Output 03/03/20 03/03/20 03/04/20 06:59 18:59 06:59 Intake Total 450 650 Output Total 630 Balance -180 650 Intake: IV 450 400 Sodium Chloride 0.45% 1, 450 400 000 ml @ 50 mls/hr IV . Q20H [facility] Rx#:[id number] Oral 250 Output: Urine 630 Other: Voiding Method Indwelling Catheter Indwelling Catheter # Voids 4 - Exam Patient is much more alert and awake. Patient appears still very encephalopathic, severely inattentive. Patient moves all 4 extremities. Speech and language functions appears normal. Patient did not cooperate with detailed testing. Patient moves all 4 extremities equally. Reflexes are 1+ and plantars are withdrawal. Patient has evidence of cold sores on her lips. Patient also has evidence of possible herpes involving her buttocks and perianal region. - Labs CBC & Chem 7: 03/03/20 05:30 03/03/20 05:30 Labs: Abnormal Lab Results - Last 24 Hours (Table) 03/02/20 03/03/20 03/03/20 Range/Units 23:40 05:30 05:30 RBC 3.63 L (3.80-5.40) m/uL Lymphocytes # 0.6 L (1.0-4.8) k/uL Sodium 134 L (137-145) mmol/L Potassium 3.3 L (3.5-5.1) mmol/L Glucose 123 H (74-99) mg/dL POC Glucose (mg/dL) (75-99) mg/dL Urine Appearance Turbid H (Clear) Urine Protein 1+ H (Negative) Urine Ketones 2+ H (Negative) Urine Blood Small H (Negative) Urine Nitrite Positive H (Negative) Ur Leukocyte Esterase Large H (Negative) Urine RBC 17 H (0-5) /hpf Urine WBC >182 H (0-5) /hpf Urine WBC Clumps Many H (None) /hpf Urine Bacteria Rare H (None) /hpf Urine Mucus Few H (None) /hpf 03/03/20 03/03/20 03/03/20 Range/Units 06:21 11:52 16:41 RBC (3.80-5.40) m/uL Lymphocytes # (1.0-4.8) k/uL Sodium (137-145) mmol/L Potassium (3.5-5.1) mmol/L Glucose (74-99) mg/dL POC Glucose (mg/dL) 116 H 116 H 114 H (75-99) mg/dL Urine Appearance (Clear) Urine Protein (Negative) Urine Ketones (Negative) Urine Blood (Negative) Urine Nitrite (Negative) Ur Leukocyte Esterase (Negative) Urine RBC (0-5) /hpf Urine WBC (0-5) /hpf Urine WBC Clumps (None) /hpf Urine Bacteria (None) /hpf Urine Mucus (None) /hpf Microbiology - Last 24 Hours (Table) 03/02/20 23:40 Urine Culture - Preliminary Urine,Voided Assessment and Plan Assessment: * Altered mental status, likely related to toxic metabolic encephalopathy. Status post Tylenol overdose. * Possible herpes involving the perianal and buttock region. Some concern for meningitis/encephalitis, although patient is completely afebrile and normal white cells. * Tylenol overdose * Probable underlying Dementia Plan: * Patient has improved as compared to yesterday as per sitter. Still continues to be confused. * Patient does have evidence of possible herpes involving perianal and buttock region. Discussed with Dr. Lorenzo about Lumbar puncture to rule out HSV/VZV infection. At present patient is afebrile and WBC is normal. Discussed with Dr. Lorenzo. As patient is doing better, no signs of infection, therefore wants to hold off on any lumbar puncture. * Liver functions are almost close to normal. * EEG was performed, which revealed background disorganization and slowing consistent with encephalopathy. No epileptiform activity seen.
[2020-03-03] MEDS: METOPROLOL TARTRATE 50 MG TAB PO SCH (22:10)
[2020-03-03] MEDS: MIRTAZAPINE 15 MG TAB PO SCH (22:11)
[2020-03-04 06:51] LABS: Calcium 9.5 mg/dL (8.4-10.2)
[2020-03-04] MEDS: ATORVASTATIN 40 MG TAB PO SCH (09:33)
[2020-03-04] MEDS: ASPIRIN 81 MG PO SCH (09:33)
[2020-03-04] MEDS: METOPROLOL TARTRATE 50 MG TAB PO SCH ×2 (09:33→20:43)
[2020-03-04] MEDS: CHOLECALCIFEROL 1,000 UNIT TAB PO SCH (09:33)
[2020-03-04] MEDS: DONEPEZIL 10 MG TAB PO SCH ×2 (09:33→09:34)
[2020-03-04] MEDS: ENOXAPARIN 40 MG/0.4 ML SYRINGE SQ SCH (09:34)
[2020-03-04] MEDS: POTASSIUM CHLORIDE ER 10 MEQ TAB.ER.PRT PO SCH (09:34)
[2020-03-04] MEDS: FAMOTIDINE 20 MG TAB PO SCH (09:36)
[2020-03-04] MEDS: PATIENT'S OWN MED (Mirabegron [Myrbetriq] 25 MG) PO SCH (09:37)
--- NOTE | 2020-03-04 11:10 | P.PN ---
Subjective Progress Note Date: 03/04/20 Principal diagnosis: Altered mental status This is an 89-year-old female patient who follows with Dr. Mcdonald as her primary care provider. She has a history of dementia, depression, hyperlipidemia, hypertension. She was brought into the emergency room on 02/24/2020 via EMS after developing altered mental status. She resides at [facility]. The staff had gone to check on her and found her to have altered mental status. Initial thoughts were of a CVA however computed tomography scan of the brain was negative for anything acute. Drug screen was positive for excessive levels of Tylenol in the bloodstream. Rated of 4004 draws. She had been receiving Mucomyst. She is seen again today in follow-up in the ICU. She is more awake. Her speech is somewhat garbled. Disoriented. Acetaminophen level still 150. AST 60, ALT 81. Sodium 132. Potassium 2.8. Creatinine 0.79. She did develop atrial fibrillation. She's been hypertensive. She is maintaining good O2 saturations in the high 90s on room air. Patient is seen today 02/27/2020 in follow-up in the intensive care unit. She is a bit more awake and alert today compared to yesterday. Answering some que stions, somewhat agitated. She is maintaining O2 saturations in the upper 90s on room air. She's been afebrile. Hemodynamically stable. Sodium 135. Potassium 5.5. Bicarb 11. Creatinine 0.77. AST 84. ALT 80. Acetaminophen less than 10. She's currently on lactated Ringer's at 125 ML's per hour. She is finishing her third bag of acetylcysteine that completes this morning. She remains in sinus rhythm with a controlled rate. The patient is seen today 02/28/2020 in follow-up in the intensive care unit. She is currently awake and alert. Her speech is somewhat garbled. She is disoriented to place and time. She is maintaining O2 saturations up to 100% on room air. Earlier this morning she was up in a chair at the bedside and she got out of her safety belt and was found on the floor. She was complaining of some right shoulder pain. X-ray of the right elbow showed no acute abnormality. X- ray of the right shoulder revealed no acute osseous lesion, fracture or dislocation. Computed tomography scan of the brain revealed no acute intracranial abnormalities. Urine culture reveals no growth. White count 6.5. Hemoglobin 11.0. Platelets 141. Sodium 136. Potassium 3.0. Chloride 111. Bicarb 19. Creatinine 0.67. AST 39. ALT 56. On today's evaluation of 03/01/2020, the patient is lethargic and confused. I was told the patient did not sleep throughout the night and the patient is more lethargic today this morning. She had minimal amount of oral intake earlier thi s morning. She has underlying dementia. No fever. No chills. No hemodynamic instability. No reported aspiration. Note that I had restarted her home medications including Remeron 50 mg at bedtime and Aricept 10 mg on a daily basis. Rest of the oral medications have been ordered resume. She is on half- normal saline today to 50 mL an hour. No nausea. No vomiting. No emesis. Potassium level is at 2.9 which is being replaced. She is confused. Her neurologic exam is nonfocal. Pulse ox 97% on room air. On 03/02/2020, the patient is much more alert and awake compared to yesterday. Nevertheless, still confused. She communicates. She is not fully appropriate and she is not oriented to time and place. She has no other complaints otherwise. She is able to tolerate some oral intake although the oral intake is quite diminished and she is eating only 20-30% of the food offered to her. No hemodynamic instability. No fever. No chills. No focal neurological deficits. No other significant events overnight. On 03/03/2020, the patient is pleasantly confused. The patient has no specific complaints. She is resting comfortably in bed. She is taking her oral intake in diet. No nausea. No vomiting. Abdominal pain. No fever. No chills. UA was abnormal. Urine cultures of been negative and the patient was given IV Rocephin as an empiric antibiotic coverage. This could be potentially affecting her mental status and was decided to cover her for possible UTI. She is a selective overflow. The patient is seen today 03/04/2020 in follow-up on the regular medical floor. She is currently sitting up in a chair at the bedside. Awake and alert in no acute distress. She is still confused to time and place. Appetite is poor. Sodium 137. Potassium 4.0. Creatinine 0.80. She remains on ceftriaxone. Follow-up urine culture pending. She's been a febrile. On room air. Objective - Vital Signs Vital signs: Vital Signs Temp 98.3 F 03/04/20 05:00 Pulse 87 03/04/20 05:00 Resp 16 03/04/20 05:00 BP 151/73 03/04/20 05:00 Pulse Ox 95 03/04/20 05:00 Intake & Output 03/03/20 03/04/20 03/04/20 18:59 06:59 18:59 Intake Total 650 0 50 Balance 650 0 50 Intake: IV 400 0 Sodium Chloride 0.45% 1, 400 0 000 ml @ 50 mls/hr IV . Q20H [facility] Rx#:[id number] Oral 250 50 Other: Voiding Method Indwelling Catheter Diaper Incontinent # Voids 4 4 - Exam GENERAL EXAM: Alert, frail 89-year-old female patient, on room air, up in a chair at the bedside, comfortable in no apparent distress. HEAD: Normocephalic. EYES: Normal reaction of pupils, equal size. NOSE: Clear with pink turbinates. THROAT: No erythema or exudates. NECK: No masses, no JVD. CHEST: No chest wall deformity. LUNGS: Equal air entry with no crackles, wheeze, rhonchi or dullness. CVS: S1 and S2 normal with no audible murmur, regular rhythm. ABDOMEN: No hepatosplenomegaly, normal bowel sounds, no guarding or rigidity. SPINE: No scoliosis or deformity SKIN: No rashes, multiple areas of ecchymosis CENTRAL NERVOUS SYSTEM: Oriented times one No focal deficits, tone is normal in all 4 extremities. EXTREMITIES: There is no peripheral edema. No clubbing, no cyanosis. Peripheral pulses are intact. - Labs CBC & Chem 7: 03/03/20 05:30 03/04/20 05:31 Labs: Abnormal Lab Results - Last 24 Hours (Table) 03/03/20 03/03/20 Range/Units 11:52 16:41 POC Glucose (mg/dL) 116 H 114 H (75-99) mg/dL Microbiology - Last 24 Hours (Table) 03/02/20 23:40 Urine Culture - Preliminary Urine,Voided Assessment and Plan Assessment: Altered mental status secondary to acetaminophen overdose, treated with acetylcysteine, acetaminophen level recovered in less than 10 History of dementia, likely of Alzheimer's type History of depression History of hypertension Hyperlipidemia Hypokalemia, improved Patient found on floor out of her recliner earlier this morning with right shoulder pain, no acute fractures. Computed tomography scan of the head no acute abnormality Chronic urinary incontinence, second urine culture pending. Remains on ceftriaxone DO NOT RESUSCITATE/DO NOT INTUBATE CODE STATUS Plan: The patient was seen and evaluated by Dr. Servin She is more awake and alert today Up in a chair at the bedside On room air, no pulmonary complaints Plan is for ECF postdischarge Continue to follow I, the cosigning physician, performed a history & physical examination of the patient. Lungs sounds are clear. Maintaining good O2 saturations in the 90s on room air. I discussed the assessment and plan of care with my nurse practitioner, Kimmy Palomo. I attest to the above note as dictated by her.
--- NOTE | 2020-03-04 16:02 | P.PN ---
Subjective Progress Note Date: 03/04/20 Patient is laying comfortably in the bed. Patient was talking to her daughter on the phone. Patient at present denies any significant headache. Continues to be pleasantly confused. I spoke to patient's daughter on the phone. She told me that patient's symptoms of dementia started in 2010, but was diagnosed formally in 2012. After of her in 2016, her dementia progressed significantly. Since this lockdown started, her dementia has further got worse. Patient's daughter states that about 1 week prior to arrival to the hospital, her mentation had got worse. She was more depressed, has expressed suicidal ideation. At present patient has much improved as compared to how she was at the time of admission, but still not back to baseline yet. Patient often gets confused as to where she is at. Sometimes she thinks she is at home. Objective - Vital Signs Vital signs: Vital Signs Temp 98.2 F 03/04/20 12:16 Pulse 62 03/04/20 13:37 Resp 18 03/04/20 13:37 BP 131/61 03/04/20 12:16 Pulse Ox 96 03/04/20 12:16 Intake & Output 03/03/20 03/04/20 03/04/20 18:59 06:59 18:59 Intake Total 650 0 450 Output Total 230 Balance 650 0 220 Weight 64.3 kg Intake: IV 400 0 400 Sodium Chloride 0.45% 1, 400 0 400 000 ml @ 50 mls/hr IV . Q20H [facility] Rx#:[id number] Oral 250 50 Output: Urine 230 Other: Voiding Method Indwelling Catheter Diaper Diaper Incontinent Incontinent # Voids 4 4 4 - Exam Patient is much more alert and awake. Patient is inattentive. Patient is not well oriented. Speech and language functions are normal. Muscle strength is normal. Patient also has evidence of possible herpes involving her buttocks and perianal region. - Labs CBC & Chem 7: 03/03/20 05:30 03/04/20 05:31 Labs: Abnormal Lab Results - Last 24 Hours (Table) 03/03/20 Range/Units 16:41 POC Glucose (mg/dL) 114 H (75-99) mg/dL Microbiology - Last 24 Hours (Table) 03/02/20 23:40 Urine Culture - Preliminary Urine,Voided Gram Neg Bacilli Assessment and Plan Assessment: * Altered mental status, likely related to toxic metabolic encephalopathy. Status post Tylenol overdose. * Acute UTI. Urine cultures growing > 100,000 gram-negative bacilli. * Possible herpes involving the perianal and buttock region. No evidence of meningitis, encephalitis. Patient is completely afebrile, normal white cells, denies headache. * Alzheimer's dementia, likely progressing. Plan: * Patient continues to be delirious. Patient now has acute UTI. Patient has been started on Rocephin as of today. * No signs of intracranial infection. No fever, white cells normal. Patient denies any headache. We will start patient on Valtrex 1 g twice a day to cover herpes infection involving the buttocks/anal region. Discussed with Dr. Lorenzo and agreed. * Her worsening mental functioning is likely due to progression of underlying dementia due to acute medical conditions as above. * EEG was performed, which revealed background disorganization and slowing consistent with encephalopathy. No epileptiform activity seen. * Neurology coverage not available on the weekend. Please call neurology service next week, if any concerns.
[2020-03-04 16:59] LABS: Glucose,Whole Blood 103 mg/dL (75-99)
[2020-03-04] MEDS: MIRTAZAPINE 15 MG TAB PO SCH (20:43)
[2020-03-04 20:55] LABS: Glucose,Whole Blood 133 mg/dL (75-99)
[2020-03-04] MEDS ORDERED: valACYclovir HCL 1,000 MG TABLET PO SCH (21:00)
--- NOTE | 2020-03-04 22:24 | P.PN ---
Progress Note - Text Progress Note Date: 03/04/20 Chief Complaint: Found unconscious History of presenting complaint: This is a 89-year-old patient be followed by Dr. SAXENA. Patient has a known history of dementia and loop recorder in the chest, depression. Patient is brought into the ER. She lives at [facility]. She was last heard from a granddaughter Alesha who is her POA. She and her for the patient on 10 AM. And when the staff at the facility to the wellness check fundoplication with altered mental status. She was brought in initially for diagnoses of stroke. There was no localizing findings. Patient's found to have a critical acetaminophen level. . admitted with-possibly acute on chronic acetaminophen toxicity.received IV Mucomyst. Encephalopathic. Today-patient moved to the medical floor. Sitting up in a chair. Eating small amounts. Otherwise appears comfortable. Patient has been noted to have herpetic lesion on the lips and the buttock cheeks. According to the sitter at the bedside patient doing better today. Review of systems: attempted for constitutional, cardiovascular, GI, pulmonary. relevant finding as above Active Medications Aspirin (Aspirin) 81 mg PO DAILY [facility] Last Admin: 03/04/20 09:33 Dose: 81 mg Documented by: Atorvastatin Calcium (Lipitor) 40 mg PO DAILY [facility] Last Admin: 03/04/20 09:33 Dose: 40 mg Documented by: Cholecalciferol (Vitamin D3 (25 Mcg = 1000 Iu)) 1,000 unit PO DAILY [facility] Last Admin: 03/04/20 09:33 Dose: 1,000 unit Documented by: Donepezil HCl (Aricept) 10 mg PO DAILY [facility] Last Admin: 03/04/20 09:34 Dose: 10 mg Documented by: Enoxaparin Sodium (Lovenox) 40 mg SQ DAILY [facility] Last Admin: 03/04/20 09:34 Dose: 40 mg Documented by: Famotidine (Pepcid) 20 mg PO DAILY [facility] Last Admin: 03/04/20 09:36 Dose: 20 mg Documented by: Hydralazine HCl (Apresoline) 5 mg IVP Q6HR PRN PRN Reason: Blood Pressure - High Last Admin: 03/02/20 16:48 Dose: 5 mg Documented by: Ceftriaxone Sodium 1 gm/ (Sodium Chloride) 50 mls @ 100 mls/hr IVPB Q24HR [facility] Last Admin: 03/04/20 09:35 Dose: 100 mls/hr Documented by: Ketorolac Tromethamine (Toradol) 15 mg IVP Q6HR PRN PRN Reason: Mild to Moderate Pain Stop: 03/05/20 06:46 Metoprolol Tartrate (Lopressor) 50 mg PO BID [facility] Last Admin: 03/04/20 20:43 Dose: 50 mg Documented by: Mirtazapine (Remeron) 15 mg PO HS [facility] Last Admin: 03/04/20 20:43 Dose: 15 mg Documented by: Miscellaneous Information (Potassium Per Protocol) 1 each MISCELLANE DAILY PRN; Protocol PRN Reason: Per Protocol Miscellaneous Information (Potassium Per Protocol) 1 each MISCELLANE DAILY PRN; Protocol PRN Reason: Per Protocol Naloxone HCl (Narcan) 0.2 mg IV Q2M PRN PRN Reason: Opioid Reversal Patient's Own Med ( Mirabegron [ Myrbetriq] 25 Mg) 25 mg PO DAILY [facility] Last Admin: 03/04/20 09:37 Dose: Not Given Documented by: Potassium Chloride (K-Dur 10) 10 meq PO DAILY [facility] Last Admin: 03/04/20 09:34 Dose: 10 meq Documented by: Silver Sulfadiazine (Silvadene Cream) 1 applic TOPICAL BID [facility] Last Admin: 03/04/20 20:43 Dose: 1 applic Documented by: Physical examination: VITAL SIGNS: 98.2, 62, 18, 131/61, 96% on room air GENERAL: sitting up in a chair, awake EYES: Pupils equal. Conjunctiva normal. HEENT: External appearance of nose and ears normal, oral cavity grossly normal. NECK: JVD not raised; masses not palpable. HEART: First and second heart sounds are normal; no edema. LUNGS: Respiratory rate normal; clear to auscultation. ABDOMEN: Soft, nontender, liver spleen not palpable, no masses palpable. PSYCH:tired but he would answer some simple questions DERMATOLOGICAL: Herpetic lesions around the upper lips, also around the buttock cheek kissing type NEUROLOGICAL: moving her limbs. INVESTIGATIONS, reviewed in the clinical context: Potassium 4 creatinine 0.8 UA cyzgritt-dzwk-kieirwqd bacilli Previous testing White count 9 hemoglobin 13.2 platelets 190 potassium 3.5 creatinine 0.63 Albumin 3.4 Acetaminophen more than 400 serum alcohol less than 10 salicylate 7.9 COVID-19 PCR-not detected EKG tracing personally reviewed by me-sinus rhythm with some ST segment changes Chest x-ray film personally reviewed by me-questionable infiltrate on the right side Computed tomography scan of the brain-age related atrophy Assessment: -Acute acetaminophen toxicity, possibly [id number]. 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 Louis from nephrology. Patient be put on oral acyclovir. Patient blood pressure is much better controlled today. Encourage oral intake. Patient will be discharged to the ECF hopefully the next 48 hours
[2020-03-05] MEDS: METOPROLOL TARTRATE 50 MG TAB PO SCH ×2 (07:13→20:03)
[2020-03-05] MEDS: FAMOTIDINE 20 MG TAB PO SCH (07:13)
[2020-03-05] MEDS: ASPIRIN 81 MG PO SCH (07:13)
[2020-03-05 07:14] LABS: Glucose,Whole Blood 108 mg/dL (75-99)
[2020-03-05] MEDS: ENOXAPARIN 40 MG/0.4 ML SYRINGE SQ SCH (07:14)
[2020-03-05] MEDS: POTASSIUM CHLORIDE ER 10 MEQ TAB.ER.PRT PO SCH (07:14)
[2020-03-05] MEDS: CHOLECALCIFEROL 1,000 UNIT TAB PO SCH (07:14)
[2020-03-05] MEDS: ATORVASTATIN 40 MG TAB PO SCH (07:14)
[2020-03-05] MEDS: DONEPEZIL 10 MG TAB PO SCH (07:14)
[2020-03-05] MEDS: PATIENT'S OWN MED (Mirabegron [Myrbetriq] 25 MG) PO SCH (08:19)
--- NOTE | 2020-03-05 10:30 | P.PN ---
Subjective Progress Note Date: 03/05/20 Principal diagnosis: Altered mental status This is an 89-year-old female patient who follows with Dr. Mcdonald as her primary care provider. She has a history of dementia, depression, hyperlipidemia, hypertension. She was brought into the emergency room on 02/24/2020 via EMS after developing altered mental status. She resides at [facility] once. The staff had gone to check on her and found her to have altered mental status. Initial thoughts were of a CVA however computed tomography scan of the brain was negative for anything acute. Drug screen was positive for excessive levels of Tylenol in the bloodstream. Rated of 4004 draws. She had been receiving Mucomyst. She is seen again today in follow-up in the ICU. She is more awake. Her speech is somewhat garbled. Disoriented. Acetaminophen level still 150. AST 60, ALT 81. Sodium 132. Potassium 2.8. Creatinine 0.79. She did develop atrial fibrillation. She's been hypertensive. She is maintaining good O2 saturations in the high 90s on room air. Patient is seen today 02/27/2020 in follow-up in the intensive care unit. She is a bit more awake and alert today compared to yesterday. Answering some que stions, somewhat agitated. She is maintaining O2 saturations in the upper 90s on room air. She's been afebrile. Hemodynamically stable. Sodium 135. Potassium 5.5. Bicarb 11. Creatinine 0.77. AST 84. ALT 80. Acetaminophen less than 10. She's currently on lactated Ringer's at 125 ML's per hour. She is finishing her third bag of acetylcysteine that completes this morning. She remains in sinus rhythm with a controlled rate. The patient is seen today 02/28/2020 in follow-up in the intensive care unit. She is currently awake and alert. Her speech is somewhat garbled. She is disoriented to place and time. She is maintaining O2 saturations up to 100% on room air. Earlier this morning she was up in a chair at the bedside and she got out of her safety belt and was found on the floor. She was complaining of some right shoulder pain. X-ray of the right elbow showed no acute abnormality. X- ray of the right shoulder revealed no acute osseous lesion, fracture or dislocation. Computed tomography scan of the brain revealed no acute intracranial abnormalities. Urine culture reveals no growth. White count 6.5. Hemoglobin 11.0. Platelets 141. Sodium 136. Potassium 3.0. Chloride 111. Bicarb 19. Creatinine 0.67. AST 39. ALT 56. On today's evaluation of 03/01/2020, the patient is lethargic and confused. I was told the patient did not sleep throughout the night and the patient is more lethargic today this morning. She had minimal amount of oral intake earlier thi s morning. She has underlying dementia. No fever. No chills. No hemodynamic instability. No reported aspiration. Note that I had restarted her home medications including Remeron 50 mg at bedtime and Aricept 10 mg on a daily basis. Rest of the oral medications have been ordered resume. She is on half- normal saline today to 50 mL an hour. No nausea. No vomiting. No emesis. Potassium level is at 2.9 which is being replaced. She is confused. Her neurologic exam is nonfocal. Pulse ox 97% on room air. On 03/02/2020, the patient is much more alert and awake compared to yesterday. Nevertheless, still confused. She communicates. She is not fully appropriate and she is not oriented to time and place. She has no other complaints otherwise. She is able to tolerate some oral intake although the oral intake is quite diminished and she is eating only 20-30% of the food offered to her. No hemodynamic instability. No fever. No chills. No focal neurological deficits. No other significant events overnight. On 03/03/2020, the patient is pleasantly confused. The patient has no specific complaints. She is resting comfortably in bed. She is taking her oral intake in diet. No nausea. No vomiting. Abdominal pain. No fever. No chills. UA was abnormal. Urine cultures of been negative and the patient was given IV Rocephin as an empiric antibiotic coverage. This could be potentially affecting her mental status and was decided to cover her for possible UTI. She is a selective overflow. The patient is seen today 03/04/2020 in follow-up on the regular medical floor. She is currently sitting up in a chair at the bedside. Awake and alert in no acute distress. She is still confused to time and place. Appetite is poor. Sodium 137. Potassium 4.0. Creatinine 0.80. She remains on ceftriaxone. Follow-up urine culture pending. She's been a febrile. On room air. The patient is seen today 03/05/2020 in follow-up on the regular medical floor. She is currently resting comfortably in bed. Awake and alert in no acute distress. She is more alert. More cooperative today. No shortness of breath, cough or congestion. Maintaining O2 saturations in the mid 90s on room air. She's afebrile. Urine culture positive for Pseudomonas and E. coli. She's currently on ceftriaxone. Objective - Vital Signs Vital signs: Vital Signs Temp 98 F 03/05/20 05:00 Pulse 67 03/05/20 05:00 Resp 16 03/05/20 08:00 BP 116/69 03/05/20 05:00 Pulse Ox 95 03/05/20 05:00 Intake & Output 03/04/20 03/05/20 03/05/20 18:59 06:59 18:59 Intake Total 450 325 Output Total 230 Balance 220 325 Weight 64.3 kg Intake: IV 400 Sodium Chloride 0.45% 1, 400 000 ml @ 50 mls/hr IV . Q20H [facility] Rx#:[id number] Oral 50 325 Output: Urine 230 Other: Voiding Method Diaper Diaper Bedside Commode Incontinent Incontinent Diaper Incontinent # Voids 4 2 - Exam GENERAL EXAM: Alert, frail 89-year-old female patient, on room air, comfortable in no apparent distress. HEAD: Normocephalic. EYES: Normal reaction of pupils, equal size. NOSE: Clear with pink turbinates. THROAT: No erythema or exudates. NECK: No masses, no JVD. CHEST: No chest wall deformity. LUNGS: Equal air entry with no crackles, wheeze, rhonchi or dullness. CVS: S1 and S2 normal with no audible murmur, regular rhythm. ABDOMEN: No hepatosplenomegaly, normal bowel sounds, no guarding or rigidity. SPINE: No scoliosis or deformity SKIN: No rashes, multiple areas of ecchymosis CENTRAL NERVOUS SYSTEM: Oriented times one No focal deficits, tone is normal in all 4 extremities. EXTREMITIES: There is no peripheral edema. No clubbing, no cyanosis. Peripheral pulses are intact. - Labs CBC & Chem 7: 03/03/20 05:30 03/04/20 05:31 Labs: Abnormal Lab Results - Last 24 Hours (Table) 03/04/20 03/04/20 03/05/20 Range/Units 16:57 20:54 07:02 POC Glucose (mg/dL) 103 H 133 H 108 H (75-99) mg/dL Microbiology - Last 24 Hours (Table) 03/02/20 23:40 Urine Culture - Final Urine,Voided Escherichia coli Pseudomonas aeruginosa Assessment and Plan Assessment: Altered mental status secondary to acetaminophen overdose, treated with acetylcysteine, acetaminophen level recovered in less than 10 Chronic urinary incontinence, second urine culture now positive for E. coli and pseudomonas aeruginosa, currently on ceftriaxone History of dementia, likely of Alzheimer's type History of depression History of hypertension Hyperlipidemia Hypokalemia, improved Patient found on floor out of her recliner earlier this morning with right shoulder pain, no acute fractures. Computed tomography scan of the head no acute abnormality DO NOT RESUSCITATE/DO NOT INTUBATE CODE STATUS Plan: The patient was seen and evaluated by Dr. Servin She is more awake and alert today UTI with Pseudomonas and E. coli DC ceftriaxone at [facility] On room air, no pulmonary complaints Plan is for ECF post discharge I, the cosigning physician, performed a history & physical examination of the patient. Lungs sounds are clear. Maintaining good O2 saturations in the 90s on room air. I discussed the assessment and plan of care with my nurse practitioner, Kimmy Palomo. I attest to the above note as dictated by her.
[2020-03-05 11:39] LABS: Glucose,Whole Blood 120 mg/dL (75-99)
--- NOTE | 2020-03-05 16:43 | PN ---
PROGRESS NOTE DATE OF SERVICE: 03/05/2020 REASON FOR FOLLOWUP: 1. Bilateral gluteal superficial wound and concern for possible herpes. 2. UTI. INTERVAL HISTORY: The patient is currently afebrile. Patient is breathing comfortably. She did mention she did choke on her drink this morning and had some difficulty breathing. Denies having any chest pain or cough. No abdominal pain, no diarrhea. PHYSICAL EXAMINATION: Blood pressure 120/62 with a pulse of 63, temperature 98.2. She is 91% on room air. General description is an elderly female up in the chair in no distress. Respiratory system: Unlabored breathing, clear to auscultation anteriorly. Heart S1, S2. Regular rate and rhythm. Abdomen soft, no tenderness. LABS: Urine with Pseudomonas and E coli. DIAGNOSTIC IMPRESSION AND PLAN: 1. Patient with bilateral gluteal superficial ulceration, possible pressure ulcer, clinically not behaving as herpes. Acyclovir was discontinued yesterday. Serology is pending. 2. Pseudomonas urinary tract infection. Continue with Fortaz. MMODL / IJN: [id number] /
[2020-03-05 17:04] LABS: Glucose,Whole Blood 120 mg/dL (75-99)
[2020-03-05 19:42] LABS: Glucose,Whole Blood 128 mg/dL (75-99)
[2020-03-05] MEDS: MIRTAZAPINE 15 MG TAB PO SCH (20:03)
--- NOTE | 2020-03-05 20:04 | P.PN ---
Progress Note - Text Progress Note Date: 03/05/20 Chief Complaint: Found unconscious History of presenting complaint: This is a 89-year-old patient be followed by Dr. SAXENA. Patient has a known history of dementia and loop recorder in the chest, depression. Patient is brought into the ER. She lives at [facility]. She was last heard from a granddaughter Alesha who is her POA. She and her for the patient on 10 AM. And when the staff at the facility to the wellness check fundoplication with altered mental status. She was brought in initially for diagnoses of stroke. There was no localizing findings. Patient's found to have a critical acetaminophen level. . admitted with-possibly acute on chronic acetaminophen toxicity.received IV Mucomyst. Encephalopathic. Today-laying in bed. Comfortable. Eating slightly better. nurse to have the patient sit up more in a chair. Review of systems: attempted for constitutional, cardiovascular, GI, pulmonary. relevant finding as above Active Medications Aspirin (Aspirin) 81 mg PO DAILY [facility] Last Admin: 03/05/20 07:13 Dose: 81 mg Documented by: Atorvastatin Calcium (Lipitor) 40 mg PO DAILY [facility] Last Admin: 03/05/20 07:14 Dose: 40 mg Documented by: Cholecalciferol (Vitamin D3 (25 Mcg = 1000 Iu)) 1,000 unit PO DAILY [facility] Last Admin: 03/05/20 07:14 Dose: 1,000 unit Documented by: Donepezil HCl (Aricept) 10 mg PO DAILY [facility] Last Admin: 03/05/20 07:14 Dose: 10 mg Documented by: Enoxaparin Sodium (Lovenox) 40 mg SQ DAILY [facility] Last Admin: 03/05/20 07:14 Dose: 40 mg Documented by: Famotidine (Pepcid) 20 mg PO DAILY [facility] Last Admin: 03/05/20 07:13 Dose: 20 mg Documented by: Hydralazine HCl (Apresoline) 5 mg IVP Q6HR PRN PRN Reason: Blood Pressure - High Last Admin: 03/02/20 16:48 Dose: 5 mg Documented by: Ceftazidime 1 gm/ Sodium (Chloride) 50 mls @ 100 mls/hr IVPB Q12HR [facility] Last Admin: 03/05/20 11:12 Dose: 100 mls/hr Documented by: Metoprolol Tartrate (Lopressor) 50 mg PO BID [facility] Last Admin: 03/05/20 07:13 Dose: 50 mg Documented by: Mirtazapine (Remeron) 15 mg PO HS [facility] Last Admin: 03/04/20 20:43 Dose: 15 mg Documented by: Miscellaneous Information (Potassium Per Protocol) 1 each MISCELLANE DAILY PRN; Protocol PRN Reason: Per Protocol Miscellaneous Information (Potassium Per Protocol) 1 each MISCELLANE DAILY PRN; Protocol PRN Reason: Per Protocol Naloxone HCl (Narcan) 0.2 mg IV Q2M PRN PRN Reason: Opioid Reversal Patient's Own Med ( Mirabegron [ Myrbetriq] 25 Mg) 25 mg PO DAILY [facility] Last Admin: 03/05/20 08:19 Dose: Not Given Documented by: Potassium Chloride (K-Dur 10) 10 meq PO DAILY [facility] Last Admin: 03/05/20 07:14 Dose: 10 meq Documented by: Silver Sulfadiazine (Silvadene Cream) 1 applic TOPICAL BID [facility] Last Admin: 03/05/20 08:47 Dose: Not Given Documented by: Physical examination: VITAL SIGNS: 98.2, 63, 18, 121/62, 91% on room air GENERAL: Laying in bed, comfortable EYES: Pupils equal. Conjunctiva normal. HEENT: External appearance of nose and ears normal, oral cavity grossly normal. NECK: JVD not raised; masses not palpable. HEART: First and second heart sounds are normal; no edema. LUNGS: Respiratory rate normal; clear to auscultation. ABDOMEN: Soft, nontender, liver spleen not palpable, no masses palpable. PSYCH:tired but he would answer some simple questions DERMATOLOGICAL: Herpetic lesions around the upper lips, also around the buttock cheek kissing type INVESTIGATIONS, reviewed in the clinical context: Potassium 4 creatinine 0.8 UA cultured-E. coli and pseudomonas aeruginosa Previous testing White count 9 hemoglobin 13.2 platelets 190 potassium 3.5 creatinine 0.63 Albumin 3.4 Acetaminophen more than 400 serum alcohol less than 10 salicylate 7.9 COVID-19 PCR-not detected EKG tracing personally reviewed by me-sinus rhythm with some ST segment changes Chest x-ray film personally reviewed by me-questionable infiltrate on the right side Computed tomography scan of the brain-age related atrophy Assessment: -Acute acetaminophen toxicity, possibly [id number]. patient is received IV Mucomyst., POA -Acute hepatic encephalopathy-slowly improving -Acute hepatitis from acetaminophen with slightly elevated LFTs and prolonged pro time -Severe hypokalemia-replaced -Hyponatremia -Late onset Alzheimer's dementia -Acute UTI and cystitis from E. 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 Discharged to [facility] on Saturday.
[2020-03-06] MEDS: METOPROLOL TARTRATE 50 MG TAB PO SCH ×2 (07:14→20:40)
[2020-03-06] MEDS: POTASSIUM CHLORIDE ER 10 MEQ TAB.ER.PRT PO SCH (07:14)
[2020-03-06] MEDS: ATORVASTATIN 40 MG TAB PO SCH (07:14)
[2020-03-06] MEDS: CHOLECALCIFEROL 1,000 UNIT TAB PO SCH (07:14)
[2020-03-06] MEDS: ASPIRIN 81 MG PO SCH (07:14)
[2020-03-06] MEDS: ENOXAPARIN 40 MG/0.4 ML SYRINGE SQ SCH (07:15)
[2020-03-06] MEDS: FAMOTIDINE 20 MG TAB PO SCH (07:15)
[2020-03-06] MEDS: PATIENT'S OWN MED (Mirabegron [Myrbetriq] 25 MG) PO SCH (07:15)
[2020-03-06] MEDS: DONEPEZIL 10 MG TAB PO SCH (07:15)
[2020-03-06 07:45] LABS: Glucose,Whole Blood 80 mg/dL (75-99)
[2020-03-06 11:32] LABS: Glucose,Whole Blood 137 mg/dL (75-99)
[2020-03-06 11:37] LABS: Glucose,Whole Blood 125 mg/dL (75-99)
[2020-03-06 16:58] LABS: Glucose,Whole Blood 125 mg/dL (75-99)
--- NOTE | 2020-03-06 17:46 | P.PN ---
Progress Note - Text Progress Note Date: 03/06/20 Chief Complaint: Found unconscious History of presenting complaint: This is a 89-year-old patient be followed by Dr. SAXENA. Patient has a known history of dementia and loop recorder in the chest, depression. Patient is brought into the ER. She lives at [facility]. She was last heard from a granddaughter Alesha who is her POA. She and her for the patient on 10 AM. And when the staff at the facility to the wellness check fundoplication with altered mental status. She was brought in initially for diagnoses of stroke. There was no localizing findings. Patient's found to have a critical acetaminophen level. . admitted with-possibly acute on chronic acetaminophen toxicity.received IV Mucomyst. Encephalopathic. Today-laying in bed. Eating better. Communicating better. Review of systems: attempted for constitutional, cardiovascular, GI, pulmonary. relevant finding as above Active Medications Aspirin (Aspirin) 81 mg PO DAILY [facility] Last Admin: 03/06/20 07:14 Dose: 81 mg Documented by: Atorvastatin Calcium (Lipitor) 40 mg PO DAILY [facility] Last Admin: 03/06/20 07:14 Dose: 40 mg Documented by: Cholecalciferol (Vitamin D3 (25 Mcg = 1000 Iu)) 1,000 unit PO DAILY [facility] Last Admin: 03/06/20 07:14 Dose: 1,000 unit Documented by: Donepezil HCl (Aricept) 10 mg PO DAILY [facility] Last Admin: 03/06/20 07:15 Dose: 10 mg Documented by: Enoxaparin Sodium (Lovenox) 40 mg SQ DAILY [facility] Last Admin: 03/06/20 07:15 Dose: 40 mg Documented by: Famotidine (Pepcid) 20 mg PO DAILY [facility] Last Admin: 03/06/20 07:15 Dose: 20 mg Documented by: Hydralazine HCl (Apresoline) 5 mg IVP Q6HR PRN PRN Reason: Blood Pressure - High Last Admin: 03/02/20 16:48 Dose: 5 mg Documented by: Ceftazidime 1 gm/ Sodium (Chloride) 50 mls @ 100 mls/hr IVPB Q12HR [facility] Last Admin: 03/06/20 07:13 Dose: 100 mls/hr Documented by: Metoprolol Tartrate (Lopressor) 50 mg PO BID [facility] Last Admin: 03/06/20 07:14 Dose: 50 mg Documented by: Mirtazapine (Remeron) 15 mg PO HS [facility] Last Admin: 03/05/20 20:03 Dose: 15 mg Documented by: Miscellaneous Information (Potassium Per Protocol) 1 each MISCELLANE DAILY PRN; Protocol PRN Reason: Per Protocol Miscellaneous Information (Potassium Per Protocol) 1 each MISCELLANE DAILY PRN; Protocol PRN Reason: Per Protocol Naloxone HCl (Narcan) 0.2 mg IV Q2M PRN PRN Reason: Opioid Reversal Patient's Own Med ( Mirabegron [ Myrbetriq] 25 Mg) 25 mg PO DAILY [facility] Last Admin: 03/06/20 07:15 Dose: Not Given Documented by: Potassium Chloride (K-Dur 10) 10 meq PO DAILY [facility] Last Admin: 03/06/20 07:14 Dose: 10 meq Documented by: Silver Sulfadiazine (Silvadene Cream) 1 applic TOPICAL BID [facility] Last Admin: 03/06/20 07:58 Dose: Not Given Documented by: Physical examination: VITAL SIGNS: 98.6, 72, 16, 146/72, 94% on room air GENERAL: Laying in bed, comfortable EYES: Pupils equal. Conjunctiva normal. HEENT: External appearance of nose and ears normal, oral cavity grossly normal. NECK: JVD not raised; masses not palpable. HEART: First and second heart sounds are normal; no edema. LUNGS: Respiratory rate normal; clear to auscultation. ABDOMEN: Soft, nontender, liver spleen not palpable, no masses palpable. PSYCH: Answering simple questions DERMATOLOGICAL: Herpetic lesions around the upper lips-improving, also around the buttock cheek kissing type INVESTIGATIONS, reviewed in the clinical context: Potassium 4 creatinine 0.8 UA cultured-E. coli and pseudomonas aeruginosa Previous testing White count 9 hemoglobin 13.2 platelets 190 potassium 3.5 creatinine 0.63 Albumin 3.4 Acetaminophen more than 400 serum alcohol less than 10 salicylate 7.9 COVID-19 PCR-not detected EKG tracing personally reviewed by me-sinus rhythm with some ST segment changes Chest x-ray film personally reviewed by me-questionable infiltrate on the right side Computed tomography scan of the brain-age related atrophy Assessment: -Acute acetaminophen toxicity, possibly [id number]. patient is received IV Mucomyst., POA -Acute hepatic encephalopathy-slowly improving -Acute hepatitis from acetaminophen with slightly elevated LFTs and prolonged pro time -Severe hypokalemia-replaced -Hyponatremia -Late onset Alzheimer's dementia -Acute UTI and cystitis from E. 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 Antibiotics per Dr. Luna
[2020-03-06 19:40] LABS: Glucose,Whole Blood 144 mg/dL (75-99)
[2020-03-06] MEDS: MIRTAZAPINE 15 MG TAB PO SCH (20:40)
--- NOTE | 2020-03-07 03:30 | PN ---
PROGRESS NOTE DATE OF SERVICE: 03/06/2020 REASON FOR FOLLOWUP: 1. UTI. 2. Bilateral gluteal pressure ulcer. INTERVAL HISTORY: The patient is currently afebrile. The patient remains to be pleasantly confused though agitated. No chest pain, shortness of breath or cough. No abdominal pain. No diarrhea. PHYSICAL EXAMINATION: Blood pressure 127/75 with the pulse of 70, temperature 97.2. She is 97% on room air. General description is an elderly female lying in bed in no distress. RESPIRATORY SYSTEM: Unlabored breathing, clear to auscultation anteriorly. HEART: S1, S2. Regular rate and rhythm. ABDOMEN: Soft, no tenderness. LABS: No new labs have been obtained today. DIAGNOSTIC IMPRESSION AND PLAN: 1. Patient with Escherichia coli and Pseudomonas urinary tract infection covered with Fortaz to continue. 2. Bilateral gluteal superficial ulceration, more likely pressure ulcer than and shingles. Continue local care and monitor clinical course closely. MMODL / IJN: [id number] /
[2020-03-07] MEDS: ASPIRIN 81 MG PO SCH (07:58)
[2020-03-07] MEDS: METOPROLOL TARTRATE 50 MG TAB PO SCH (07:58)
[2020-03-07] MEDS: FAMOTIDINE 20 MG TAB PO SCH (07:58)
[2020-03-07] MEDS: ATORVASTATIN 40 MG TAB PO SCH (07:58)
[2020-03-07] MEDS: CHOLECALCIFEROL 1,000 UNIT TAB PO SCH (07:58)
[2020-03-07] MEDS: PATIENT'S OWN MED (Mirabegron [Myrbetriq] 25 MG) PO SCH (07:59)
[2020-03-07] MEDS: POTASSIUM CHLORIDE ER 10 MEQ TAB.ER.PRT PO SCH (07:59)
[2020-03-07] MEDS: ENOXAPARIN 40 MG/0.4 ML SYRINGE SQ SCH (07:59)
[2020-03-07 08:43] LABS: Glucose,Whole Blood 92 mg/dL (75-99)
[2020-03-07 11:19] LABS: Glucose,Whole Blood 125 mg/dL (75-99)
--- NOTE | 2020-03-07 12:03 | P.DS ---
Providers Date of admission: 02/24/20 21:54 Expected date of discharge: 03/07/20 Attending physician: Sergio Lorenzo Consults: 02/24/20 21:54 Consult Physician Stat Consulting Provider: Cooper Moya Consult Reason/Comments: acute toxic encephalopathy, acute tylenol overdose Do you want consulting provider notified?: Already Contacted 02/25/20 11:41 Consult Physician Urgent Consulting Provider: Ambrocio Edwards Consult Reason/Comments: Mental status changes, tylenol toxicity Do you want consulting provider notified?: Yes 03/04/20 15:07 Consult Physician Routine Consulting Provider: Amy Velasquez Consult Reason/Comments: shingle to buttock Do you want consulting provider notified?: Yes Primary care physician: Lon Mcdonald [facility] Course: Chief Complaint: Found unconscious History of presenting complaint: This is a 89-year-old patient be followed by Dr. MCDONALD. Patient has a known history of dementia and loop recorder in the chest, depression. Patient is brought into the ER. She lives at [facility]. She was last heard from a granddaughter Alesha who is her POA. She and her for the patient on 10 AM. And when the staff at the facility to the wellness check found her with altered mental status. She was brought in initially for diagnoses of stroke. There was no localizing findings. Patient's found to have a critical acetaminophen level. . admitted with-possibly acute on chronic acetaminophen toxicity.received IV Mucomyst. Encephalopathic. Was in the ICU. Treated for UTI. Slowly improving. Eating better. Overall prognosis guarded. Today-laying in bed. Comfortable. Answering simple questions. Consultation: Dr. Solis and colleagues from critical care Dr. Louis from neurology Dr. Velasquez from ID Physical examination: VITAL SIGNS: 97.7, 73, 16, 160-72, 95% on room air GENERAL: Laying in bed, comfortable EYES: Pupils equal. Conjunctiva normal. HEENT: External appearance of nose and ears normal, oral cavity grossly normal. NECK: JVD not raised; masses not palpable. HEART: First and second heart sounds are normal; no edema. LUNGS: Respiratory rate normal; clear to auscultation. ABDOMEN: Soft, nontender, liver spleen not palpable, no masses palpable. PSYCH: Answering simple questions DERMATOLOGICAL: Herpetic lesions around upper lips-improving, also around the buttock cheek kissing type INVESTIGATIONS, reviewed in the clinical context: Potassium 4 creatinine 0.8 UA cultured-E. coli and pseudomonas aeruginosa Previous testing White count 9 hemoglobin 13.2 platelets 190 potassium 3.5 creatinine 0.63 Albumin 3.4 Acetaminophen more than 400 serum alcohol less than 10 salicylate 7.9 COVID-19 PCR-not detected EKG tracing personally reviewed by me-sinus rhythm with some ST segment changes Chest x-ray film personally reviewed by me-questionable infiltrate on the right side Computed tomography scan of the brain-age related atrophy Assessment: -Acute acetaminophen toxicity, possibly [id number]. patient is received IV Mucomyst., POA -Acute hepatic encephalopathy-slowly improving -Acute hepatitis from acetaminophen with slightly elevated LFTs and prolonged pro time -Severe hypokalemia-replaced -Hyponatremia -Late onset Alzheimer's dementia -Acute UTI and cystitis from E. 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 -Buttocks stage I pressure ulcer -DO NOT RESUSCITATE Disposition: ECF/[facility] Patient Condition at Discharge: Stable Plan - Discharge Summary Discharge Rx Participant: No New Discharge Prescriptions: New Cefuroxime [Ceftin] 250 mg PO BID 3 Days #6 tab Levofloxacin [Levaquin] 500 mg PO DAILY #5 tab Metoprolol Tartrate [Lopressor] 50 mg PO BID tab Famotidine [Pepcid] 20 mg PO DAILY tab SILVER sulfADIAZINE CREAM [Silvadene Cream] 1 applic TOPICAL BID applic Continue Potassium Chloride ER [K-Dur 10] 10 meq PO DAILY Mirabegron [Myrbetriq] 25 mg PO DAILY Cholecalciferol [Vitamin D3 (25 Mcg = 1000 Iu)] 1,000 unit PO DAILY Aspirin EC [Ecotrin Low Dose] 81 mg PO DAILY Donepezil HCl [Aricept] 10 mg PO DAILY Atorvastatin [Lipitor] 40 mg PO DAILY Biotin 1000mcg 1,000 mcg PO DAILY Changed Mirtazapine [Remeron] 15 mg PO HS #3 tab Discontinued Metoprolol Tartrate [Lopressor] 12.5 mg PO BID Lactobacillus Acidophilus [Acidophilus] 1 tab PO DAILY Discharge Medication List Aspirin EC [Ecotrin Low Dose] 81 mg PO DAILY 09/25/19 [History] Atorvastatin [Lipitor] 40 mg PO DAILY 09/25/19 [History] Cholecalciferol [Vitamin D3 (25 Mcg = 1000 Iu)] 1,000 unit PO DAILY 09/25/19 [History] Donepezil HCl [Aricept] 10 mg PO DAILY 09/25/19 [History] Mirabegron [Myrbetriq] 25 mg PO DAILY 09/25/19 [History] Potassium Chloride ER [K-Dur 10] 10 meq PO DAILY 09/25/19 [History] Biotin 1000mcg 1,000 mcg PO DAILY 02/24/20 [History] Cefuroxime [Ceftin] 250 mg PO BID 3 Days #6 tab 03/07/20 [Rx] Famotidine [Pepcid] 20 mg PO DAILY tab 03/07/20 [Rx] Levofloxacin [Levaquin] 500 mg PO DAILY #5 tab 03/07/20 [Rx] Metoprolol Tartrate [Lopressor] 50 mg PO BID tab 03/07/20 [Rx] Mirtazapine [Remeron] 15 mg PO HS #3 tab 03/07/20 [Rx] SILVER sulfADIAZINE CREAM [Silvadene Cream] 1 applic TOPICAL BID applic 03/07/20 [Rx] Follow up Appointment(s)/Referral(s): Lon Mcdonald MD [Primary Care Provider] - 1-2 days [facility] Visiting Nurse, [NON-STAFF] - 1-2 Days
[2020-03-07 12:26] VITALS: BP 128/58; PULSE 68; RESP 18; TEMP 97.9
[2020-03-07 12:30] LABS: HSV I IgG Interp POSITIVE (NEGATIVE); HSV II IgG Interp POSITIVE (NEGATIVE)
--- NOTE | 2020-03-07 15:11 | PN ---
PROGRESS NOTE DATE OF SERVICE: 03/07/2020 REASON FOR FOLLOWUP: Urinary tract infection and bilateral gluteal wounds. INTERVAL HISTORY: The patient is currently afebrile, patient is more awake and alert. Denies having any chest pain. No cough. No abdominal pain or any new symptoms reported. PHYSICAL EXAMINATION: Blood pressure 120/58 with a pulse of 60, temperature is 97.9, she is 98% on room air. General description is an elderly female, up in the chair in no distress. RESPIRATORY SYSTEM: Unlabored breathing, clear to auscultation anteriorly. HEART: S1, S2. Regular rate and rhythm. ABDOMEN: Soft. LABS: No new labs have been obtained today. IMPRESSION AND PLAN: 1. Patient with UTI. Culture with E coli. 2. Patient is on Levaquin and Ceftin. 3. Positive blood culture. Local care with Calmoseptine lotion, keep the area dry and off the pressure. MMODL / IJN: [id number] /
== END 2020-03-07 14:28 | DRG 917 ==
LOC: EC 19:37 → 2SICU 21:54 → UNDOADMIN 21:54 → 2SICU 02-25 04:59 → 5NMEDONC 03-03 17:25
PROVIDERS: ADMIT Hospitalist; ATTEND Hospitalist
DX: T39.1X1A Poisoning by 4-Aminophenol derivatives, accidental (unintentional), initial encounter (principal); G92 Toxic encephalopathy; E87.1 Hypo-osmolality and hyponatremia; E87.2 Acidosis; F02.81 Dementia in other diseases classified elsewhere, unspecified severity, with behavioral disturbance; N30.00 Acute cystitis without hematuria; B00.89 Other herpesviral infection; K71.10 Toxic liver disease with hepatic necrosis, without coma; L89.321 Pressure ulcer of left buttock, stage 1; L89.311 Pressure ulcer of right buttock, stage 1; K71.2 Toxic liver disease with acute hepatitis; G30.1 Alzheimer's disease with late onset; B96.20 Unspecified Escherichia coli [E. coli] as the cause of diseases classified elsewhere; Z11.59 Encounter for screening for other viral diseases; B96.5 Pseudomonas (aeruginosa) (mallei) (pseudomallei) as the cause of diseases classified elsewhere; E78.5 Hyperlipidemia, unspecified; E87.5 Hyperkalemia; E87.6 Hypokalemia; F32.9 Major depressive disorder, single episode, unspecified; F41.9 Anxiety disorder, unspecified; I10 Essential (primary) hypertension; I48.91 Unspecified atrial fibrillation; I49.1 Atrial premature depolarization; N39.3 Stress incontinence (female) (male); R73.9 Hyperglycemia, unspecified; M25.511 Pain in right shoulder; B00.1 Herpesviral vesicular dermatitis; Z66 Do not resuscitate; Z79.82 Long term (current) use of aspirin; Z79.899 Other long term (current) drug therapy; Z90.710 Acquired absence of both cervix and uterus; Z88.5 Allergy status to narcotic agent; W07.XXXA Fall from chair, initial encounter; Y92.230 Patient room in hospital as the place of occurrence of the external cause
CPT/HCPCS: 36410; 36415; 70450; 71046; 74018; 76937; 80048; 80053; 80076; 80306; 80320; 80329; 81001; 81003; 82140; 82550; 83520; 84132; 84450; 84460; 84484; 85025; 85610; 85730; 86695; 86696; 86787; 87077; 87086; 87186; 87635; 93005; 95816; 96361; 96365; 96375; 99291

== ENCOUNTER 2020-08-10 00:16 | Emergency (ER) | payer MEDICARE ==
[2020-08-10 00:23] VITALS: RESP 18; TEMP 98.3
[2020-08-10 00:41] VITALS: PULSE 59
[2020-08-10 00:42] VITALS: BP 192/91
[2020-08-10] MEDS ORDERED: DIPH,PERTUS(ACELL)TETVAC-LF 0.5 ML VIAL IM ONE (00:42)
--- NOTE | 2020-08-10 01:20 | ED ---
Fall HPI - General Chief Complaint: Fall Stated Complaint: Fall Time Seen by Provider: 08/10/20 00:25 Source: EMS Mode of arrival: EMS - History of Present Illness Initial Comments: Patient is an 89-year-old healthy female, with a mild dementia, presenting to the emergency department after she fell today. Patient states she was having trouble sleeping over the past few days and she took some melatonin. That was not working so she decided to drink a small glass of wine that she found in her refrigerator. Patient stood up from the toilet and when she stood up she fell forward. Patient denies loss of consciousness. She was able to walk downstairs and tell somebody that she fell. She lives independently at [facility]. Patient has a small cut to the right top of her head as well as some bruising to her right eye. She denies being on the blood thinner. She denies having headache, blurry vision, lightheadedness, abdominal pain, lower extremity pain. She denies any chest pain. She denies any upper, the pain. She has no further complaints from this fall. She does not remember her last this vaccine. - Related Data Home Medications Medication Instructions Recorded Confirmed Aspirin EC [Ecotrin Low Dose] 81 mg PO DAILY 09/25/19 02/24/20 Atorvastatin [Lipitor] 40 mg PO DAILY 09/25/19 02/24/20 Cholecalciferol [Vitamin D3 (25 1,000 unit PO DAILY 09/25/19 02/24/20 Mcg = 1000 Iu)] Donepezil HCl [Aricept] 10 mg PO DAILY 09/25/19 02/24/20 Mirabegron [Myrbetriq] 25 mg PO DAILY 09/25/19 02/24/20 Potassium Chloride ER [K-Dur 10] 10 meq PO DAILY 09/25/19 02/24/20 Biotin 1000mcg 1,000 mcg PO DAILY 02/24/20 02/24/20 Previous Rx's Medication Instructions Recorded Cefuroxime [Ceftin] 250 mg PO BID 3 Days #6 tab 03/07/20 Famotidine [Pepcid] 20 mg PO DAILY tab 03/07/20 Levofloxacin [Levaquin] 500 mg PO DAILY #5 tab 03/07/20 Metoprolol Tartrate [Lopressor] 50 mg PO BID tab 03/07/20 Mirtazapine [Remeron] 15 mg PO HS #3 tab 03/07/20 SILVER sulfADIAZINE CREAM 1 applic TOPICAL BID applic 03/07/20 [Silvadene Cream] Allergies Allergy/AdvReac Type Severity Reaction Status Date / Time ibuprofen AdvReac Unknown Verified 08/10/20 00:23 morphine AdvReac Unknown Verified 02/25/20 11:45 Review of Systems ROS Statement: Those systems with pertinent positive or pertinent negative responses have been documented in the HPI. ROS Other: All systems not noted in ROS Statement are negative. Past Medical History Past Medical History: Dementia, Hyperlipidemia, Hypertension Additional Past Medical History / Comment(s): loop recorder in chest History of Any Multi-Drug Resistant Organisms: None Reported Past Surgical History: Hysterectomy Past Anesthesia/Blood Transfusion Reactions: No Reported Reaction Past Psychological History: Depression Smoking Status: Never smoker Past Alcohol Use History: Occasional Past Drug Use History: None Reported - Past Family History Daughter(s) History Unknown: Yes General Exam - General Exam Comments Initial Comments: GENERAL: Patient is well-developed and well-nourished. Patient is nontoxic and in no acute distress. HEAD: Atraumatic, normocephalic. No hematoma, no signs of basal skull fracture. EYES: Pupils equal round and reactive to light, extraocular movements intact, sclera anicteric, conjunctiva are normal. Eyelids were unremarkable. Patient does have some bruising to the right side of the cheek underneath the right eye. ENT: TMs normal, nares patent, oropharynx clear without exudates. Moist mucous membranes. NECK: Normal range of motion, supple without lymphadenopathy or JVD. No midline tenderness. LUNGS: Unlabored respirations. Breath sounds clear to auscultation bilaterally and equal. No wheezes rales or rhonchi. HEART: Regular rate and rhythm without murmurs, rubs or gallops. ABDOMEN: Soft, nontender, normoactive bowel sounds. No guarding, no rebound. No masses appreciated. : Deferred MUSCULOSKELETAL: Normal extremities with adequate strength and normal range of motion, no pitting or edema. No clubbing or cyanosis. NEUROLOGICAL: Patient is alert and oriented x 3. Motor and sensory are also intact. Cranial nerves II through XII grossly intact. Symmetrical smile. Normal speech, normal gait. PSYCH: Normal mood, normal affect. SKIN: Warm, Dry, normal turgor, no rashes. Patient has a 1 cm laceration to the right frontal scalp. Bleeding is controlled with a bandage. Limitations: physical limitation Course Vital Signs 08/10/20 08/10/20 00:19 00:40 Temperature 98.3 F Pulse Rate 60 59 L Respiratory 18 18 Rate Blood Pressure 151/103 192/91 O2 Sat by Pulse 97 96 Oximetry Procedures - Laceration Laceration #1 Consent Obtained: verbal consent Indication: laceration Site: scalp (right frontal) Size (cm): 1 Description: linear Depth: simple, single layer Patient Tolerated Procedure: well Additional Comments: Patient's wound was closed with 3 jorge luis. Medical Decision Making - Medical Decision Making Patient is an 89-year-old female here after she fell forward after she stood up from the toilet. There was no loss of consciousness, she does not take blood thinners. He has a 1 cm laceration to the right frontal scalp as well as some mild bruising underneath the right eye. The rest her exam is unremarkable, she has no complaints at this time. CT of the brain and C-spine showed no acute abnormalities. CT of the facial bones reveal acute fracture of the anterior wall the right maxillary sinus. She has no active bleeding of her hand wound or her nose. I did close patient's head laceration with 3 jorge luis. She tolerated procedure well. Patient is stable for discharge. Patient's granddaughter will come pick her up and take her home. Patient will follow up with ENT. We did discuss not blowing her nose. Patient is in agreement with this plan of care. Return parameters were discussed with the patient and she verbalized understanding. Case discussed with Dr. Curran. Disposition Clinical Impression: Fall, Laceration of scalp, Fracture of maxillary sinus Disposition: HOME SELF-CARE Condition: Stable Instructions (If sedation given, give patient instructions): Facial Fracture (ED) Additional Instructions: Please return to the Emergency Department if symptoms worsen or any other concerns. There are 3 jorge luis in your head wound. These need to be removed in 7 days. Follow up with ENT regarding your maxillary sinus fracture. Do not blow your nose. Is patient prescribed a controlled substance at d/c from ED?: No Referrals: Lon Mcdonald MD [Primary Care Provider] - 1-2 days William Duggan MD [STAFF PHYSICIAN] - 1-2 days
--- NOTE | 2020-08-10 01:37 | CT ---
EXAM: CT Head Without Intravenous Contrast CLINICAL HISTORY: ITS.REASON CT Reason: fall TECHNIQUE: Axial computed tomography images of the head/brain without intravenous contrast. CTDI is 12.985 mGy and DLP is 400.3 mGy-cm. This CT exam was performed using one or more of the following dose reduction techniques: automated exposure control, adjustment of the mA and/or kV according to patient size, and/or use of iterative reconstruction technique. COMPARISON: 02/28/20. FINDINGS: There is no intracranial hemorrhage or mass effect. No clear acute large vessel territory infarct. Involutional and microvascular ischemic changes. Rightward scalp thickening near the vertex, presumably a contusion. No skull fracture. Separately dictated facial CT. IMPRESSION: No acute brain or skull injury. EXAM: CT Cervical Spine Without Intravenous Contrast CLINICAL HISTORY: ITS.REASON CT Reason: fall TECHNIQUE: Axial computed tomography images of the cervical spine without intravenous contrast. CTDI is 7.6 mGy and DLP is 222.4 mGy-cm. This CT exam was performed using one or more of the following dose reduction techniques: automated exposure control, adjustment of the mA and/or kV according to patient size, and/or use of iterative reconstruction technique. COMPARISON: No relevant prior studies available. FINDINGS: Vertebrae: No acute fracture. T2 compression deformity is felt to be chronic Discs/spinal canal/neural foramina: Multilevel spondylosis including disc degeneration and facet and uncovertebral arthropathy. This is believed to account for grade 1 C2, C3 and C7 anterolisthesis. Soft tissues: 7 mm hypodensity in the inferior left thyroid lobe. Follow-up is not clearly warranted (as per the [employer] white paper guidelines regarding incidentally noted thyroid nodules). IMPRESSION: No acute fracture.
--- NOTE | 2020-08-10 01:40 | CT ---
EXAM: CT Maxillofacial Without Intravenous Contrast CLINICAL HISTORY: ITS.REASON CT Reason: fall, facial injury TECHNIQUE: Axial computed tomography images of the face without intravenous contrast. CTDI is 25.8 mGy and DLP is 793.6 mGy-cm. This CT exam was performed using one or more of the following dose reduction techniques: automated exposure control, adjustment of the mA and/or kV according to patient size, and/or use of iterative reconstruction technique. COMPARISON: No relevant prior studies available. FINDINGS: Bones/joints: There is an acute fracture of the anterior wall and right maxillary sinus with intrasinus hemorrhage. Degeneration of the temporomandibular joints. Soft tissues: Right malar contusion/hematoma. Orbits: Ocular lens prostheses. No retrobulbar hematoma. Sinuses: As above. IMPRESSION: Acute fracture of the anterior wall of the right maxillary sinus.
== END 2020-08-10 02:16 | disposition home or self-care (01) ==
LOC: EC 00:16
DX: S02.40CA Maxillary fracture, right side, initial encounter for closed fracture (principal); S01.01XA Laceration without foreign body of scalp, initial encounter; E78.5 Hyperlipidemia, unspecified; I10 Essential (primary) hypertension; F03.90 Unspecified dementia, unspecified severity, without behavioral disturbance, psychotic disturbance, mood disturbance, and anxiety; F32.9 Major depressive disorder, single episode, unspecified; Z23 Encounter for immunization; Z79.899 Other long term (current) drug therapy; Z88.5 Allergy status to narcotic agent; Z88.6 Allergy status to analgesic agent; W19.XXXA Unspecified fall, initial encounter; Y92.002 Bathroom of unspecified non-institutional (private) residence as the place of occurrence of the external cause
CPT/HCPCS: 12001; 70450; 70486; 72125; 90471; 90715; 99284